=== PATIENT | male | born 1945 | race Caucasian/White ===

== ENCOUNTER 2016-10-14 02:00 | Emergency (ER) | payer MEDICARE, MEDICAID ==
[2016-10-14 02:10] VITALS: BP 142/62
[2016-10-14] MEDS ORDERED: DIPH/PERTUSS(ACELL)/TETANUS VAC/PF 0.5 ML SYR (>=10YO) IM ONE (03:07)
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
== END 2016-10-14 05:07 | disposition home or self-care (01) ==
LOC: ER 02:00
DX: S41.111A Laceration without foreign body of right upper arm, initial encounter (principal); M79.631 Pain in right forearm; W22.01XA Walked into wall, initial encounter; Z87.891 Personal history of nicotine dependence
CPT/HCPCS: 90471; 90715; 99284

== ENCOUNTER 2016-10-25 17:55 | Emergency (ER) | payer MEDICARE, MEDICAID ==
[2016-10-25] MEDS ORDERED: METHYLPREDNISOLONE INJ 125 MG/2 ML SDV IV ONE (18:36)
[2016-10-25] MEDS ORDERED: IPRATROPIUM/ALBUTEROL 0.5-2.5 MG/3 ML AMPUL NEB ONE (18:36)
[2016-10-25] MEDS ORDERED: IBUPROFEN 600 MG TABLET PO ONE (18:36)
--- NOTE | 2016-10-25 18:36 | ER Document Report ---
ED Respiratory Problem - General Chief Complaint: Neck and Upper Back Pain Stated Complaint: NECK PAIN Notes: The patient is a 71-year-old male, past medical history COPD, hypertension, presents with 1 day of cough and increased wheezing. He received a DuoNeb with some relief of his symptoms. He is also having right sided neck pain that started after he woke up earlier today. He denies chest pain, nausea, vomiting , fevers, leg swelling, abdominal pain, numbness, tingling or back pain. TRAVEL OUTSIDE OF THE [place] IN LAST 30 DAYS: No - Related Data Allergies/Adverse Reactions: No Known Allergies Allergy (Verified 10/14/16 02:07) Past Medical History - General Information source: Patient - Social History Smoking Status: Current Every Day Smoker Family History: Reviewed & Not Pertinent - Past Medical History Cardiac Medical History: Reports: Hx Congestive Heart Failure, Hx Hypercholesterolemia, Hx Hypertension Pulmonary Medical History: Reports: Hx Asthma, Hx COPD Endocrine Medical History: Reports: Hx Diabetes Mellitus Type 2 Renal/ Medical History: Denies: Hx Peritoneal Dialysis GI Medical History: Reports: Hx Gastroesophageal Reflux Disease Musculoskeltal Medical History: Reports Hx Arthritis Skin Medical History: Reports Hx MRSA Psychiatric Medical History: Denies: Hx Depression Past Surgical History: Reports: Hx Abdominal Surgery - Hernia Repair, Hx Genitourinary Surgery - SCRUTAL FLUID DRAINED, Hx Herniorrhaphy - Immunizations Hx Diphtheria, Pertussis, Tetanus Vaccination: Yes Hx Pneumococcal Vaccination: 09/02/11 Review of Systems - Review of Systems Notes: REVIEW OF SYSTEMS: CONSTITUTIONAL: -fevers, -chills EENT: -eye pain, -difficulty swallowing, -nasal congestion CARDIOVASCULAR: -chest pain, -syncope. RESPIRATORY: +cough, +SOB GASTROINTESTINAL: -abdominal pain, -nausea, -vomiting, -diarrhea GENITOURINARY: -dysuria, -hematuria MUSCULOSKELETAL: + left neck pain, -back pain SKIN: -rash or skin lesions. HEMATOLOGIC: -easy bruising or bleeding. LYMPHATIC: -swollen, enlarged glands. NEUROLOGICAL: -altered mental status or loss of consciousness, -headache, - neurologic symptoms PSYCHIATRIC: -anxiety, -depression. ALL OTHER SYSTEMS REVIEWED AND NEGATIVE. Physical Exam - Vital signs Vitals: Resp BP Pulse Ox 24 H 130/65 H 97 10/25/16 18:15 10/25/16 18:15 02/23/17 18:15 - Notes Notes: PHYSICAL EXAMINATION: GENERAL: Well-appearing, well-nourished and in no acute distress. HEAD: Atraumatic, normocephalic. EYES: Pupils equal round and reactive to light, extraocular movements intact, sclera anicteric, conjunctiva are normal. ENT: nares patent, oropharynx clear without exudates. Moist mucous membranes. NECK: Spasming over left paraspinal cervical muscles, Normal range of motion, supple without lymphadenopathy LUNGS: B/L wheezing, no respiratory distress HEART: Regular rate and rhythm without murmurs ABDOMEN: Soft, nontender, normoactive bowel sounds. No guarding, no rebound. No masses appreciated. EXTREMITIES: Normal range of motion, no pitting or edema. No cyanosis. NEUROLOGICAL: Cranial nerves grossly intact. Normal speech, normal gait. Normal sensory, motor, and reflex exams. PSYCH: Normal mood, normal affect. SKIN: Chronic right arm wound without drainage, erythema or tenderness. Course - Re-evaluation Re-evalutation: Patient in no respiratory distress. After DuoNeb and steroids, patient's wheezing has completely resolved. Chest x-ray negative for any acute findings. Labs are unremarkable. Cervical neck spasm resolved after Motrin and heating pad. EKG does not show any acute changes and symptoms very atypical for ACS. Symptoms also atypical for PE or aortic dissection at this time. Pt also with chronic right arm wound. Offered I&D, but he defers at this time because the wound is non-tender and without drainage. Will have him f/u at his PMD. Given strict return precautions and he understands. 10/25/16 19:58 Repeat vital signs are HR 92, RR 19, BP 132/87. - Vital Signs Vital signs: Temp Pulse Resp BP Pulse Ox 97.9 F 108 H 26 H 130/65 H 97 10/25/16 18:16 10/25/16 18:16 10/25/16 18:16 10/25/16 18:16 10/25/16 18:16 - Laboratory Result Diagrams: 10/25/16 19:04 10/25/16 19:04 Laboratory results interpreted by me: 10/25/16 10/25/16 19:04 19:04 RDW 15.2 H Lymphocytes % 8.3 L Monocytes % 15.9 H Absolute Monocytes 1.6 H Carbon Dioxide 20 L - Diagnostic Test Radiology reviewed: Image reviewed, Reports reviewed Radiology results interpreted by me: CXR: low lung volumes, minimal atelectasis - EKG Interpretation by Me EKG shows normal: Sinus rhythm, [place], Intervals, QRS Complexes, ST-T Waves Rate: Tachycardia Discharge - Discharge Clinical Impression: COPD exacerbation Neck strain Qualifiers: Encounter type: initial encounter Qualified Code(s): S16.1XXA - Strain of muscle, fascia and tendon at neck level, initial encounter Condition: Good Disposition: HOME, SELF-CARE Additional Instructions: Take the full course of steroids and use her albuterol as needed. Motrin and heating pads for your neck strain. Follow-up with your primary care physician. Return immediately to the emergency room if you have any worsening pain or shortness of breath. Chronic Obstructive Lung Disease You have chronic obstructive lung disease (COPD). The symptoms come from emphysema (damage to small airways, with trapping of air in large sacks in the lung) and chronic bronchitis (repeated infection and damage to larger airways). The cause is almost always cigarette smoking, although dust exposure, asthma, and infections contribute. You should avoid fumes, dust, and smoke (especially tobacco smoke). Your condition will flare from time to time. There is no cure, but the symptoms can be treated. Bronchodilators (asthma medicine) are often helpful. Antibiotics help when infection is present. When shortness of breath is severe, we may prescribe cortisone medication. If medicine doesn't help enough, we can arrange for you to have an oxygen tank at home. Notify your doctor at once if sputum becomes thick, foul, or bloody, if you develop a fever or chest pain, or if your shortness of breath worsens. SPRAIN: Your injury is a sprain. A sprain results from stretching or tearing of the ligaments, usually from a twisting injury. The ligaments will require time and protection in order to heal properly. Many sprains are quite disabling and should be taken seriously. The usual initial treatment of sprains is cold packs, elevation, and rest of the injured area. Your physician has assessed the seriousness of your ligament injury, and has outlined a treatment plan. Understand that this treatment may change, depending on how you progress. If a re-examination was recommended, it is important that you follow up as instructed. Call the doctor any time if there is severe pain, numbness, or loss of function in the injured area. ICE & ELEVATION: Apply ice packs frequently against the painful area. Many different schedules are recommended, such as "20 minutes on, 20 minutes off" or "one hour ice, two hours rest." If you need to work, you may need to go longer between ice treatments. You should plan to have the area ice packed AT LEAST one- fourth of the time. The ice should be applied over the wrap, tape, or splint, or over a layer of cloth -- not directly against the skin. Some ice bags have a built-in cloth and can be put directly on the skin. Your injured part should be elevated as much as possible over the next 48 hours. Try to keep the injury above the level of the heart. Avoid use of the injured area. Elevation and rest will decrease the swelling. USE OF [id number]-[id number] IBUPROFEN: Ibuprofen (Advil, Nuprin, Medipren, Motrin IB) is a medication for fever and pain control. In addition, it has anti- inflammatory effects which may be beneficial, especially in the treatment of injuries. It's best to take ibuprofen with food. Persons with ulcer disease or allergy to aspirin should notify their physician of this before taking ibuprofen. Ibuprofen can be given every four to six hours, for a total of four doses daily. Age Pain or fever dose Antiinflammatory dose 6-8 yr 200 mg (1 tab) 200 mg (1 tab) 9-11 yr 200 mg (1 tab) 200-400 mg (1-2 tab) 11-14 yr 200-400 mg (1-2 tab) 400 mg (2 tab) 15-adult 400 mg (2 tab) 600 mg (3 tab) ORAL NARCOTIC MEDICATION: You have been given a prescription for pain control. This medication is a narcotic. It's best taken with food, as nausea can result if taken on an empty stomach. Don't operate machinery or drive within six hours of taking this medication. Do not combine this medicine with alcohol, or with any medication which can cause sedation (such as cold tablets or sleeping pills) unless you get permission from the physician. Narcotics tend to cause constipation. If possible, drink plenty of fluids and eat a diet high in fiber and fruits. Please be aware that prescription narcotics also have the potential for abuse. People become addicted to these medications because of the general sense of wellbeing that they induce. This feeling along with a significant reduction in tension, anxiety, and aggression provides a stimulating seductive quality to these drugs. Once your pain is under control, we encourage you to discard your unused narcotics. FOLLOW-UP CARE: If you have been referred to a physician for follow-up care, call the physician s office for an appointment as you were instructed or within the next two days. If you experience worsening or a significant change in your symptoms, notify the physician immediately or return to the Emergency Department at any time for re-evaluation. Prescriptions: Prednisone [Deltasone 20 mg Tablet] 3 tab PO DAILY 5 Days
[2016-10-25 19:23] LABS: ABSOLUTE EOSINOPHILS # (AUTO) 0.3 10^3/uL (0.0-0.6); ABSOLUTE LYMPHOCYTES (AUTO) 0.8 10^3/uL (0.5-4.7); ABSOLUTE MONOCYTES (AUTO) 1.6 10^3/uL (0.1-1.4); ABSOLUTE NEUT (AUTO) 7.3 10^3/uL (1.7-8.2); BASOPHILS % (AUTO) 0.3 % (0-2); EOSINOPHILS % (AUTO) 2.6 % (0-6); HEMATOCRIT 43.1 % (37.9-51.0); HEMOGLOBIN 15.1 g/dL (13.5-17.0); HGB HCT DIFFERENCE 2.2; LYMPHOCYTES % (AUTO) 8.3 % (13-45); MEAN CORPUSCULAR HEMOGLOBIN 32.3 pg (27.0-33.4); MEAN CORPUSCULAR HGB CONC 34.9 g/dL (32.0-36.0); MEAN CORPUSCULAR VOLUME 93 fl (80-97); MONOCYTES % (AUTO) 15.9 % (3-13); RED BLOOD COUNT 4.66 10^6/uL (4.35-5.55); RED CELL DISTRIBUTION WIDTH 15.2 % (11.5-14.0); SEGMENTED NEUTROPHILS % (AUTO) 72.9 % (42-78)
[2016-10-25 19:44] LABS: ANION GAP 16 (5-19); BLOOD UREA NITROGEN 10 mg/dL (7-20); CALCIUM 9.5 mg/dL (8.4-10.2); CARBON DIOXIDE 20 mmol/L (22-30); CHLORIDE 101 mmol/L (98-107); CREATINE KINASE 151 U/L (55-170); GLUCOSE 109 mg/dL (75-110); POTASSIUM 3.9 mmol/L (3.6-5.0)
[2016-10-25 20:32] VITALS: BP 133/67
--- NOTE | 2016-10-26 16:57 | EKG REPORT ---
SEVERITY:- BORDERLINE ECG - SINUS TACHYCARDIA ATRIAL PREMATURE COMPLEX BORDERLINE LEFT AXIS DEVIATION : Confirmed by: Tiffanie Palm MD 26-Oct-2016 16:56:29
== END 2016-10-25 20:15 | disposition home or self-care (01) ==
LOC: ER 17:55
DX: S16.1XXA Strain of muscle, fascia and tendon at neck level, initial encounter (principal); X58.XXXA Exposure to other specified factors, initial encounter; J44.1 Chronic obstructive pulmonary disease with (acute) exacerbation; J45.909 Unspecified asthma, uncomplicated; R00.0 Tachycardia, unspecified; R05 Cough; J98.11 Atelectasis; M54.2 Cervicalgia; E11.9 Type 2 diabetes mellitus without complications; I10 Essential (primary) hypertension; F17.200 Nicotine dependence, unspecified, uncomplicated; Z86.14 Personal history of Methicillin resistant Staphylococcus aureus infection
CPT/HCPCS: 93005; 94640; 99284; 96374; 36415; 82550; 85025; 80048; 84484; 71010; 93010; A9270 ×2; J2930; J7620

== ENCOUNTER 2016-11-09 09:12 | Emergency (ER) | payer MEDICARE, MEDICAID ==
--- NOTE | 2016-11-09 11:21 | ER Document Report ---
ED Skin Rash/Insect Bite/Abscs - General Chief Complaint: Abscess Stated Complaint: POSSIBLE ABSCESS Time seen by provider: 11:18 Mode of Arrival: Ambulatory Information source: Patient Notes: 71-year-old male presents to ED for abscess to his left mid back. He states he has had this before since Saturday TRAVEL OUTSIDE OF THE [place] IN LAST 30 DAYS: No - HPI Patient complains to provider of: Tender/swollen area Onset: Other - Saturday it is now Saturday Onset/Duration: Gradual Quality of pain: Pressure, Sharp Severity: Moderate Pain Level: 4 Skin Character: Abscess Skin Temperature: Warm Quality of rash: Painful Identify cause: No Exacerbated by: Movement Relieved by: Denies Similar symptoms previously: Yes Recently seen / treated by doctor: No - Related Data Allergies/Adverse Reactions: No Known Allergies Allergy (Verified 11/09/16 09:27) Past Medical History - General Information source: Patient - Social History Smoking Status: Former Smoker Cigarette use (# per day): No Chew tobacco use (# tins/day): No Smoking Education Provided: No Frequency of alcohol use: Social Drug Abuse: None Occupation: disabled Lives with: Family - His niece Family History: Arthritis, CVA, DM, Hypertension, Thyroid Disfunction Patient has suicidal ideation: No Patient has homicidal ideation: No - Past Medical History Cardiac Medical History: Reports: Hx Congestive Heart Failure, Hx Hypercholesterolemia, Hx Hypertension Pulmonary Medical History: Reports: Hx Asthma, Hx COPD EENT Medical History: Reports: None Neurological Medical History: Reports: None Endocrine Medical History: Reports: Hx Diabetes Mellitus Type 2 Renal/ Medical History: Reports: None Malignancy Medical History: Reports None GI Medical History: Reports: Hx Gastroesophageal Reflux Disease, Hx Colonoscopy , Other - Has had an umbilical hernia he has not getting repaired it is not incarcerated Musculoskeltal Medical History: Reports Hx Arthritis Skin Medical History: Reports Hx MRSA Psychiatric Medical History: Reports: None Traumatic Medical History: Reports: None Infectious Medical History: Reports: Hx MRSA Past Surgical History: Reports: Hx Genitourinary Surgery - SCRUTAL FLUID DRAINED , Hx Inguinal Hernia - Immunizations Hx Diphtheria, Pertussis, Tetanus Vaccination: Yes Hx Pneumococcal Vaccination: 09/02/11 Review of Systems - Review of Systems Constitutional: No symptoms reported EENT: No symptoms reported Cardiovascular: No symptoms reported Respiratory: No symptoms reported Gastrointestinal: No symptoms reported Genitourinary: No symptoms reported Male Genitourinary: No symptoms reported Musculoskeletal: No symptoms reported Skin: Other - Abscess to back Hematologic/Lymphatic: No symptoms reported Neurological/Psychological: No symptoms reported Physical Exam - Vital signs Vitals: Temp Pulse Resp BP Pulse Ox 97.7 F 101 H 22 H 156/66 H 94 11/09/16 09:16 11/09/16 09:16 11/09/16 09:16 11/09/16 09:16 11/09/16 09:16 Interpretation: Normal - General General appearance: Appears well, Alert - HEENT Head: Normocephalic, Atraumatic Eyes: Normal Pupils: PERRL - Respiratory Respiratory status: No respiratory distress Chest status: Nontender Breath sounds: Normal Chest palpation: Normal - Cardiovascular Rhythm: Regular Heart sounds: Normal auscultation Murmur: No - Abdominal Inspection: Normal Distension: No distension Bowel sounds: Normal Tenderness: Nontender Organomegaly: No organomegaly - Back Back: Normal, Nontender - Extremities General upper extremity: Normal inspection, Nontender, Normal color, Normal ROM , Normal temperature General lower extremity: Normal inspection, Nontender, Normal color, Normal ROM , Normal temperature, Normal weight bearing. No: Bonnie's sign - Neurological Neuro grossly intact: Yes Cognition: Normal Orientation: AAOx4 Mckenna Coma Scale Eye Opening: Spontaneous [place] Coma Scale Verbal: Oriented Mck[place] Coma Scale Motor: Obeys Commands Mckenna Coma Scale Total: 15 Speech: Normal Motor strength normal: LUE, RUE, LLE, RLE Sensory: Normal - Psychological Associated symptoms: Normal affect, Normal mood - Skin Skin Temperature: Warm Skin Moisture: Dry Skin Color: Normal Skin irregularity: Abscess Location of irregularity: Back - Left mid back Irregularity with: Swelling, Tenderness, Warmth Course - Re-evaluation Re-evalutation: 11/09/16 12:49 I&D completed to the abscess on his left mid back. Patient tolerated well large amount of purulent drainage return. Abscess was packed with 1/4 inch iodoform gauze and a sterile dressing applied. Patient instructed to have the wound repacked in 48 hours. He states that his niece has done this in the past and can do it for him. Patient instructed to follow-up with the doctor Saturday or Saturday to have the abscess reexamined. He was told he could go to his primary doctor for this examination. Patient was started on Keflex and Septra and Hunt for pain. - Vital Signs Vital signs: Temp Pulse Resp BP Pulse Ox 97.8 F 109 H 18 153/80 H 98 11/09/16 13:17 11/09/16 13:17 11/09/16 13:17 11/09/16 13:17 11/09/16 13:17 Procedures - Incision and Drainage Left Mid- Back Time completed: 12:48 Type: Simple Anesthetic type: 1% Lidocaine mL's of anesthetic: 5 Blade size: 11 I&D procedure: Betadine prep applied, Other - Surgical scrub Incision Method: Incision made by scalpel Amount/type of drainage: large amount of purulent drainage Notes: 11/09/16 12:49 Abscess was packed with quarter-inch iodoform sterile dressing applied. Discharge - Discharge Clinical Impression: Cutaneous abscess of back [any part, except buttock] Condition: Stable Disposition: HOME, SELF-CARE Additional Instructions: ABSCESS: You have an abscess (boil). This a pus-forming infection, usually due to staph. Some boils may be left to drain on their own, but most require lancing. From the time the tender lump first appears, it may be three or four days before the abscess is ready to thomas. Local heat and rest help at this stage of treatment. An antibiotic may prevent spread of the infection. Once the abscess is opened, packing may be placed into it. This is done so pus is not sealed inside by premature closure of the cavity. The packing will be removed at your follow-up visit or you may be advised to remove it yourself at home. Sometimes this packing must be replaced a few times during healing. The wound will heal with surprisingly little scar. Depending on the size and location of an abscess, healing can take one to four weeks. You may shower and wash the area around the incision site two or three times a day. Antibiotics may be prescribed, but are usually not necessary after an abscess has been drained. If you develop fever, chills, worsening pain, or increasing swelling in the area, call the doctor or return immediately. POST INCISION AND DRAINAGE: You have had an incision made to allow drainage of an abscess. The incision must remain open so that pus and debris can drain from the wound. If the abscess cavity is large, packing is placed. This keeps the tissues from collapsing and trapping pus inside, while the body shrinks the cavity. The packing may need to be replaced every day or two. The physician will instruct you on the packing. Keep a bulky dressing over the area. Replace it if it becomes saturated with blood or pus. Do not disturb the packing (if present). You may shower and cleanse the area with gentle soap and warm water two or three times a day. Local warmth may be soothing, and may promote faster healing. Return if you develop high fever or chills, or if you note spreading redness, increasing swelling, or increasing tenderness. ORAL NARCOTIC MEDICATION: You have been given a prescription for pain control. This medication is a narcotic. It's best taken with food, as nausea can result if taken on an empty stomach. Don't operate machinery or drive within six hours of taking this medication. Do not combine this medicine with alcohol, or with any medication which can cause sedation (such as cold tablets or sleeping pills) unless you get permission from the physician. Narcotics tend to cause constipation. If possible, drink plenty of fluids and eat a diet high in fiber and fruits. CEPHALEXIN: The antibiotic you've been prescribed is a member of the cephalosporin class. This type of antibiotic covers a wide variety of infections, including those of the skin, lungs, and urinary tract. It's useful for staph infections. This antibiotic is slightly similar to the penicillin family. In rare cases , a person who is allergic to penicillin will also be allergic to this medication. If you have had a severe allergic reaction to penicillin, and have not taken this antibiotic since that time, notify your doctor. Antibiotics which cover many germs ("broad spectrum" antibiotics) are more likely to cause diarrhea or "yeast" infections. Women prone to vaginal yeast problems may suffer an attack after taking this antibiotic. In infants, oral thrush (white spots "stuck" on the cheek) or yeast diaper rash may result. See your doctor if these problems occur. Call at once if you develop itching, hives , shortness of breath, or lightheadedness. TRIMETHOPRIM-SULFA: You have been given a prescription for trimethoprim-sulfa (TMS, Septra, Bactrim). This is a combination antibiotic of the sulfa class, often used for urinary tract infections, middle ear infections, bronchitis, shigella intestinal infection, and Pneumocystis pneumonia. TMS is usually well-tolerated. Occasional side effects include nausea and decreased appetite. Septra is not recommended for infants less than two months of age. Do not take this medication if you have experienced severe side effects or allergy to sulfa medicine. You should stop this medicine at once and contact your physician if you develop any rash, joint pain, shortness of breath, bruising, or jaundice ( yellow color in the skin), or if you develop any other new or unusual symptoms. Your abscess has been packed with iodoform please leave this packing in for 24- 48 hours and then replaced the packing. It is important that you have this followed up by your primary doctor on Saturday or Saturday to ensure that the wound is healing. FOLLOW-UP CARE: Most simple abscesses will not require a follow up visit. If you had packing placed in the abscess, remove it as instructed by the physician. If you have been referred to a physician for follow-up care, call the physicians office for an appointment as you were instructed or within the next two days. If you experience worsening or a significant change in your symptoms, return to the Emergency Department at any time for re-evaluation. Prescriptions: Hydrocodone/Acetaminophen [Hunt 5-325 mg Tablet] 1 tab PO Q6HP PRN #10 tablet PRN Reason: Cephalexin Monohydrate [Keflex 500 mg Capsule] 500 mg PO QID #20 capsule Sulfamethoxazole/Trimethoprim [Septra-Ds 800-160 mg Tablet] 1 tab PO BID #14 tablet Forms: Elevated Blood Pressure Referrals: ZAIRE MILTON MD [Primary Care Provider] - Follow up as needed
[2016-11-09 13:19] VITALS: BP 153/80
== END 2016-11-09 13:17 | disposition home or self-care (01) ==
LOC: ER 09:12
PROC: 0H96XZZ Drainage of Back Skin, External Approach (ICD-10-PCS; principal; 2016-11-09)
DX: L02.212 Cutaneous abscess of back [any part, except buttock and flank] (principal); E11.9 Type 2 diabetes mellitus without complications; J45.909 Unspecified asthma, uncomplicated; J44.9 Chronic obstructive pulmonary disease, unspecified; E78.00 Pure hypercholesterolemia, unspecified; I10 Essential (primary) hypertension; I50.9 Heart failure, unspecified; Z87.891 Personal history of nicotine dependence; Z86.14 Personal history of Methicillin resistant Staphylococcus aureus infection
CPT/HCPCS: 87070; 87075; 87077; 87186; 87205; 99283

== ENCOUNTER 2016-11-30 03:38 | Emergency (ER) | payer MEDICARE, MEDICAID ==
[2016-11-30] MEDS ORDERED: IPRATROPIUM/ALBUTEROL 0.5-2.5 MG/3 ML AMPUL NEB ONE ×2 (04:10→06:25)
--- NOTE | 2016-11-30 04:43 | ER Document Report ---
ED General - General Chief Complaint: Shortness Of Breath Stated Complaint: SHORTNESS OF BREATH Time seen by provider: 04:30 Mode of Arrival: Medic Information source: Patient TRAVEL OUTSIDE OF THE [place] IN LAST 30 DAYS: No - HPI Notes: Patient presents with report of cough productive of yellowish phlegm that the patient had for the last week, with report of worsening dyspnea and wheezing over the course of last 2 days. The patient reports associated chest tightness with the wheezing and difficulty breathing, stating this is not unusual for his typical COPD flareups. Patient denies any fever or chills or radiation of the chest tightness. He reports no nausea or vomiting. No pharyngitis or earache. Patient quit smoking 14 years ago, but has a long-standing history of COPD. The patient previously was on home oxygen until his physician took him off of home oxygen 3 years ago when he stated that he did not need it anymore. EMS picked up the patient giving nebulizer treatments with improvement. The patient was also given IV Solu-Medrol 125 mg. - Related Data Allergies/Adverse Reactions: No Known Allergies Allergy (Verified 11/09/16 09:27) Past Medical History - Social History Smoking Status: Former Smoker Frequency of alcohol use: None Drug Abuse: None Lives with: Family Family History: Arthritis, CVA, DM, Hypertension, Thyroid Disfunction - Past Medical History Cardiac Medical History: Reports: Hx Congestive Heart Failure, Hx Hypercholesterolemia, Hx Hypertension Pulmonary Medical History: Reports: Hx Asthma, Hx COPD Endocrine Medical History: Reports: Hx Diabetes Mellitus Type 2 Renal/ Medical History: Denies: Hx Peritoneal Dialysis GI Medical History: Reports: Hx Gastroesophageal Reflux Disease, Hx Colonoscopy Musculoskeltal Medical History: Reports Hx Arthritis Skin Medical History: Reports Hx MRSA Psychiatric Medical History: Denies: Hx Depression Infectious Medical History: Reports: Hx MRSA Past Surgical History: Reports: Hx Abdominal Surgery - Hernia Repair, Hx Genitourinary Surgery - SCRUTAL FLUID DRAINED, Hx Herniorrhaphy, Hx Inguinal Hernia - Immunizations Hx Diphtheria, Pertussis, Tetanus Vaccination: Yes Hx Pneumococcal Vaccination: 09/02/11 Review of Systems - Review of Systems Notes: REVIEW OF SYSTEMS: CONSTITUTIONAL : Denies fever, chills, or sweats. EENT: Denies eye, ear, throat, or mouth pain or symptoms. Denies nasal or sinus congestion or discharge. Denies throat, tongue, or mouth swelling or difficulty swallowing. CARDIOVASCULAR: Denies palpitations or racing or irregular heart beat. Denies ankle edema. RESPIRATORY: Positive for cough and congestion and wheezing and difficulty breathing. GASTROINTESTINAL: Denies abdominal pain or distention. Denies nausea, vomiting , or diarrhea. Denies blood in vomitus, stools, or per rectum. Denies black, tarry stools. Denies constipation. GENITOURINARY: Denies difficulty urinating, painful urination, burning, frequency, blood in urine, or discharge. MUSCULOSKELETAL: Denies back or neck pain or stiffness. Denies joint pain or swelling. SKIN: Denies rash, lesions or sores. HEMATOLOGIC : Denies easy bruising or bleeding. LYMPHATIC: Denies swollen, enlarged glands. NEUROLOGICAL: Denies confusion or altered mental status. Denies passing out or loss of consciousness. Denies dizziness or lightheadedness. Denies headache. Denies weakness or paralysis or loss of use of either side. Denies problems with gait or speech. Denies sensory loss, numbness, or tingling. Denies seizures. PSYCHIATRIC: Denies anxiety or stress. Denies depression, suicidal ideation, or homicidal ideation. ALL OTHER SYSTEMS REVIEWED AND NEGATIVE. Dictation was performed using [employer] voice recognition software Physical Exam - Vital signs Vitals: Resp BP Pulse Ox 13 143/64 H 98 11/30/16 03:47 11/30/16 03:47 11/30/16 03:47 - Notes Notes: PHYSICAL EXAMINATION: GENERAL: Well-appearing, well-nourished. Mild respiratory distress. HEAD: Atraumatic, normocephalic. EYES: Pupils equal round and reactive to light, extraocular movements intact, sclera anicteric, conjunctiva are normal. ENT: Nares patent, oropharynx clear without exudates. Moist mucous membranes. NECK: Normal range of motion, supple without lymphadenopathy LUNGS: Breath sounds show anterior wheezing with slightly prolonged expiratory phase and accessory muscle use. HEART: Regular rate and rhythm without murmurs ABDOMEN: Soft, nontender, nondistended abdomen. No guarding, no rebound. No masses appreciated. Musculoskeletal: Normal range of motion, no pitting or edema. No cyanosis. NEUROLOGICAL: Cranial nerves grossly intact. Normal speech, normal gait. Normal sensory, motor exams PSYCH: Normal mood, normal affect. SKIN: Warm, Dry, normal turgor, no rashes or lesions noted. Course - Re-evaluation Re-evalutation: 11/30/16 06:50 Initial troponin negative. Repeat exam showed continued wheezing. Repeat DuoNeb ordered. Repeat troponin is ordered for 8 AM. Patient kept on supplemental oxygen 2 L. No obvious evidence for acute MA or electrolyte imbalance or pneumonia. Question a underlying bronchitis. Care turned over to Dr. Mcbride at 0645. - Vital Signs Vital signs: Temp Pulse Resp BP Pulse Ox 97.8 F 88 26 H 141/73 H 95 11/30/16 06:00 11/30/16 06:00 11/30/16 06:01 11/30/16 06:01 11/30/16 06:01 - Laboratory Result Diagrams: 11/30/16 04:35 11/30/16 04:35 Laboratory results interpreted by me: 11/30/16 11/30/16 04:35 04:35 RDW 14.7 H Creatine Kinase 171 H - EKG Interpretation by Pr EKG shows normal: Sinus rhythm Additional EKG results interpreted by me: 11/30/16 04:52 EKG as interpreted by ia showed normal sinus rhythm at a rate of 87. There is no gross evidence for acute MA or ischemia identified. There is no change from previous EKG reviewed from 10/25/16. Discharge - Discharge Clinical Impression: Acute exacerbation of chronic obstructive pulmonary disease (COPD) Acute bronchitis Qualifiers: Bronchitis organism: unspecified organism Qualified Code(s): J20.9 - Acute bronchitis, unspecified
[2016-11-30 05:03] LABS: ALANINE AMINOTRANSFERASE 41 U/L (21-72); ALBUMIN 4.2 g/dL (3.5-5.0); ALKALINE PHOSPHATASE 61 U/L (38-126); ANION GAP 13 (5-19); ASPARTATE AMINO TRANSFERASE 36 U/L (17-59); BILIRUBIN,DIRECT 0.2 mg/dL (0.0-0.4); BILIRUBIN,TOTAL 0.6 mg/dL (0.2-1.3); BLOOD UREA NITROGEN 9 mg/dL (7-20); CALCIUM 9.8 mg/dL (8.4-10.2); CARBON DIOXIDE 24 mmol/L (22-30); CHLORIDE 105 mmol/L (98-107); CREATINE KINASE 171 U/L (55-170); CREATININE RESULT 0.71 mg/dL (0.52-1.25); GLUCOSE 90 mg/dL (75-110); POTASSIUM 4.3 mmol/L (3.6-5.0); SODIUM 142.3 mmol/L (137-145); TOTAL PROTEIN 7.1 g/dL (6.3-8.2)
[2016-11-30 05:05] LABS: ABSOLUTE BASOPHILS # (AUTO) 0.1 10^3/uL (0.0-0.2); ABSOLUTE EOSINOPHILS # (AUTO) 0.1 10^3/uL (0.0-0.6); ABSOLUTE LYMPHOCYTES (AUTO) 1.4 10^3/uL (0.5-4.7); ABSOLUTE MONOCYTES (AUTO) 0.8 10^3/uL (0.1-1.4); ABSOLUTE NEUT (AUTO) 6.5 10^3/uL (1.7-8.2); BASOPHILS % (AUTO) 0.8 % (0-2); EOSINOPHILS % (AUTO) 1.7 % (0-6); HEMATOCRIT 41.2 % (37.9-51.0); HEMOGLOBIN 13.9 g/dL (13.5-17.0); HGB HCT DIFFERENCE 0.5; LYMPHOCYTES % (AUTO) 15.3 % (13-45); MEAN CORPUSCULAR HEMOGLOBIN 30.9 pg (27.0-33.4); MEAN CORPUSCULAR HGB CONC 33.7 g/dL (32.0-36.0); MEAN CORPUSCULAR VOLUME 92 fl (80-97); MONOCYTES % (AUTO) 9.5 % (3-13); RED CELL DISTRIBUTION WIDTH 14.7 % (11.5-14.0); SEGMENTED NEUTROPHILS % (AUTO) 72.7 % (42-78); WHITE BLOOD COUNT 8.9 10^3/uL (4.0-10.5)
[2016-11-30 05:14] LABS: CREATINE KINASE MB 3.45 ng/mL (<4.55)
[2016-11-30 05:18] LABS: TROPONIN I 0.037 ng/mL
[2016-11-30] MEDS ORDERED: ALBUTEROL SULFATE 0.083% NEB 2.5 MG/3 ML AMPUL NEB ONE (10:53)
--- NOTE | 2016-11-30 10:56 | EKG REPORT ---
SEVERITY:- BORDERLINE ECG - SINUS RHYTHM BORDERLINE LEFT AXIS DEVIATION : Confirmed by: Deborah Tracy 30-Nov-2016 10:55:30
[2016-11-30] MEDS ORDERED: PREDNISONE 20 MG TABLET PO ONE (11:38)
[2016-11-30 11:53] VITALS: BP 157/69
== END 2016-11-30 11:53 | disposition home or self-care (01) ==
LOC: ER 03:38
DX: J44.0 Chronic obstructive pulmonary disease with (acute) lower respiratory infection (principal); J20.9 Acute bronchitis, unspecified; J44.1 Chronic obstructive pulmonary disease with (acute) exacerbation; R05 Cough; R07.89 Other chest pain; I10 Essential (primary) hypertension; E11.9 Type 2 diabetes mellitus without complications; Z87.891 Personal history of nicotine dependence; Z86.14 Personal history of Methicillin resistant Staphylococcus aureus infection
CPT/HCPCS: 93005; 94640 ×2; 99285; 36415; 82553; 82550; 83735; 85025; 80053; 84484; 83880; 71010; 93010; A9270 ×3; J7512; J7620

== ENCOUNTER 2017-07-25 19:05 | Inpatient (IN) | payer MEDICARE, MEDICAID ==
[2017-07-25] MEDS ORDERED: ALBUTEROL SULFATE 0.083% NEB 2.5 MG/3 ML AMPUL NEB ONE ×3 (19:11→22:25)
--- NOTE | 2017-07-25 19:43 | ER Document Report ---
ED General - General Mode of Arrival: Medic Information source: Patient TRAVEL OUTSIDE OF THE [place] IN LAST 30 DAYS: No - HPI Onset: This afternoon <JESSIKA POSADAS - Last Filed: 07/25/17 22:27> <CHRISTOPH EARLY - Last Filed: 07/26/17 01:31> - General Chief Complaint: Breathing Difficulty Stated Complaint: SHORTNESS OF BREATH Time Seen by Provider: 07/25/17 19:33 Notes: Patient is a 71 year old male with a history of COPD and asthma presents to the emergency department, via EMS, complaining of shortness of breath onset around 14:00 today. Patient states that he had a "flare up " of his COPD and asthma which caused epigastric and LUQ tightness along with his shortness of breath. Patient states that he takes his nebulizer every 4 hours although it was not helping his symptoms today. Patient states he has had a small cough today. EMS gave 125 mg of Solu Medrol prior to arrival. (JESSIKA POSADAS) - Related Data Allergies/Adverse Reactions: No Known Allergies Allergy (Verified 11/09/16 09:27) Home Medications: Current Home Medications Albuterol Sulfate [Proair Hfa] 8.5 gm IH PRN PRN 07/25/17 [History] Amlodipine Besylate [Norvasc 10 mg Tablet] 10 mg PO DAILY 07/25/17 [History] Aspirin [Aspirin 81 mg Chewable Tablet] 81 mg PO DAILY 07/25/17 [History] Ipratropium/Albuterol Sulfate [Iprat-Albut 0.5-3(2.5) Mg/3 Ml] 3 ml IH Q4H 07/25 [History] Metformin HCl [Metformin HCl ER] 500 mg PO BID 07/25/17 [History] Omeprazole Magnesium [Prilosec Otc] 20 mg PO DAILY 07/25/17 [History] Past Medical History - General Information source: Patient - Social History Smoking Status: Former Smoker Cigarette use (# per day): No Chew tobacco use (# tins/day): No Frequency of alcohol use: Occasional Drug Abuse: None Family History: Arthritis, CVA, DM, Hypertension, Thyroid Disfunction Patient has suicidal ideation: No Patient has homicidal ideation: No - Past Medical History Cardiac Medical History: Reports: Hx Congestive Heart Failure, Hx Hypercholesterolemia, Hx Hypertension Pulmonary Medical History: Reports: Hx Asthma, Hx COPD Endocrine Medical History: Reports: Hx Diabetes Mellitus Type 2 GI Medical History: Reports: Hx Gastroesophageal Reflux Disease, Hx Colonoscopy Musculoskeltal Medical History: Reports Hx Arthritis Skin Medical History: Reports Hx MRSA Infectious Medical History: Reports: Hx MRSA Past Surgical History: Reports: Hx Abdominal Surgery - Hernia Repair, Hx Genitourinary Surgery - SCRUTAL FLUID DRAINED, Hx Herniorrhaphy, Hx Inguinal Hernia - Immunizations Hx Diphtheria, Pertussis, Tetanus Vaccination: Yes Hx Pneumococcal Vaccination: 09/02/11 <JESSIKA POSADAS - Last Filed: 07/25/17 22:27> Review of Systems - Review of Systems Constitutional: No symptoms reported EENT: No symptoms reported Cardiovascular: No symptoms reported Respiratory: See HPI, Cough, Short of breath Gastrointestinal: See HPI, Abdominal pain Genitourinary: No symptoms reported Male Genitourinary: No symptoms reported Musculoskeletal: No symptoms reported Skin: No symptoms reported Hematologic/Lymphatic: No symptoms reported Neurological/Psychological: No symptoms reported -: Yes All other systems reviewed and negative <JESSIKA POSADAS - Last Filed: 07/25/17 22:27> Physical Exam <JESSIKA POSADAS - Last Filed: 07/25/17 22:27> <CHRISTOPH EARLY - Last Filed: 07/26/17 01:31> - Vital signs Vitals: Resp Pulse Ox 20 96 07/25/17 19:11 07/25/17 19:11 - Notes Notes: GENERAL: Alert, interacts well. HEAD: Normocephalic, atraumatic. EYES: Pupils equal, round, and reactive to light. Extraocular movements intact. ENT: Oral mucosa moist, tongue midline. NECK: Full range of motion. Supple. Trachea midline. LUNGS: Expiratory wheezes. No rales or rhonchi. Shortness of breath. Uses accessory muscles. Tachypneic. HEART: Regular rate and rhythm. No murmurs, gallops, or rubs. ABDOMEN: Soft, non-tender. Non-distended. Bowel sounds present in all 4 quadrants. Large, reducible umbilical hernia. EXTREMITIES: Moves all 4 extremities spontaneously. No edema, radial and dorsalis pedis pulses 2/4 bilaterally. No cyanosis. NEUROLOGICAL: Alert and oriented x3. Normal speech. PSYCH: Normal affect, normal mood. SKIN: Warm, dry, normal turgor. No rashes or lesions noted. (JESSIKA POSADAS) Course - Laboratory Result Diagrams: 07/25/17 19:31 07/25/17 19:31 <JESSIKA POSADAS - Last Filed: 07/25/17 22:27> - Laboratory Result Diagrams: 07/25/17 19:31 07/25/17 19:31 <CHRISTOPH EARLY - Last Filed: 07/26/17 01:31> - Re-evaluation Re-evalutation: 07/25/17 22:27 Patient continues to have shortness of breath and wheezing. Patient uses accessory muscles to aid in breathing. Pulse ox is 92. (JESSIKA POSADAS) 07/25/17 22:31 CBC unremarkable, chemistries unremarkable, chest x-ray shows no acute process, cardiac enzymes negative, EKG is nonischemic. Despite IV steroids and 3 breathing treatments patient is not feeling any better, continues to be tachypneic and wheeze. At present no indication for BiPAP. Discussed patient with Dr. Villalta who is covering for his primary care physician Dr. Diallo, he accepts the patient to his service in admission status on the telemetry care unit. 07/25/17 22:32 Primary care physician will continue to monitor his long-standing hypertension ( CHRISTOPH EARLY) - Vital Signs Vital signs: Temp Pulse Resp BP Pulse Ox 97.7 F 109 H 20 150/70 H 96 07/26/17 00:03 07/26/17 00:03 07/26/17 00:03 07/26/17 00:03 07/26/17 00:03 - Laboratory Laboratory results interpreted by me: 07/25/17 07/25/17 19:31 19:31 Hgb 17.5 H MCH 33.6 H RDW 14.3 H Monocytes % 15.0 H Glucose 134 H Direct Bilirubin 0.5 H - EKG Interpretation by Me Additional EKG results interpreted by me: 07/25/17 22:31 EKG shows sinus rhythm at a rate of 96, left anterior hemiblock, no ST segment elevations or depressions, no T-wave inversions per my interpretation. (CHRISTOPH EARLY) Discharge <JESSIKA POSADAS - Last Filed: 07/25/17 22:27> - Discharge Admitting Provider: [facility] Unit Admitted: Telemetry <CHRISTOPH EARLY - Last Filed: 07/26/17 01:31> - Discharge Clinical Impression: COPD exacerbation Hypertension Qualifiers: Hypertension type: essential hypertension Qualified Code(s): I10 - Essential ( primary) hypertension Condition: Fair Disposition: ADMITTED INPATIENT Scribe Attestation: 07/26/17 01:31 I personally performed the services described in the documentation, reviewed and edited the documentation which was dictated to the scribe in my presence, and it accurately records my words and actions. (CHRISTOPH EARLY) Scribe Documentation - Scribe Written by Cristóbal:: Cristóbal Lincoln, 07/25/2017 19:54 acting as scribe for :: Rakesh <JESSIKA POSADAS - Last Filed: 07/25/17 22:27>
[2017-07-25] MEDS ORDERED: IPRATROPIUM/ALBUTEROL 0.5-2.5 MG/3 ML AMPUL NEB ONE (19:58)
[2017-07-25 20:48] LABS: ALANINE AMINOTRANSFERASE 41 U/L (21-72); ALBUMIN 4.3 g/dL (3.5-5.0); ALKALINE PHOSPHATASE 64 U/L (38-126); ANION GAP 15 (5-19); ASPARTATE AMINO TRANSFERASE 27 U/L (17-59); BILIRUBIN,DIRECT 0.5 mg/dL (0.0-0.4); BILIRUBIN,TOTAL 0.7 mg/dL (0.2-1.3); BLOOD UREA NITROGEN 13 mg/dL (7-20); CALCIUM 9.6 mg/dL (8.4-10.2); CARBON DIOXIDE 22 mmol/L (22-30); CHLORIDE 101 mmol/L (98-107); CREATINE KINASE 116 U/L (55-170); CREATININE RESULT 1.07 mg/dL (0.52-1.25); GLUCOSE 134 mg/dL (75-110); SODIUM 137.8 mmol/L (137-145); TOTAL PROTEIN 7.3 g/dL (6.3-8.2)
[2017-07-25 20:52] LABS: ABSOLUTE BASOPHILS # (AUTO) 0.1 10^3/uL (0.0-0.2); ABSOLUTE EOSINOPHILS # (AUTO) 0.3 10^3/uL (0.0-0.6); ABSOLUTE LYMPHOCYTES (AUTO) 1.4 10^3/uL (0.5-4.7); ABSOLUTE MONOCYTES (AUTO) 1.1 10^3/uL (0.1-1.4); ABSOLUTE NEUT (AUTO) 4.4 10^3/uL (1.7-8.2); BASOPHILS % (AUTO) 1.2 % (0-2); EOSINOPHILS % (AUTO) 4.5 % (0-6); HEMATOCRIT 49.2 % (37.9-51.0); HEMOGLOBIN 17.5 g/dL (13.5-17.0); HGB HCT DIFFERENCE 3.3; LYMPHOCYTES % (AUTO) 18.7 % (13-45); MEAN CORPUSCULAR HEMOGLOBIN 33.6 pg (27.0-33.4); MEAN CORPUSCULAR HGB CONC 35.6 g/dL (32.0-36.0); MEAN CORPUSCULAR VOLUME 94 fl (80-97); RED BLOOD COUNT 5.22 10^6/uL (4.35-5.55); RED CELL DISTRIBUTION WIDTH 14.3 % (11.5-14.0); SEGMENTED NEUTROPHILS % (AUTO) 60.6 % (42-78); WHITE BLOOD COUNT 7.3 10^3/uL (4.0-10.5)
[2017-07-25 21:00] LABS: CREATINE KINASE MB 2.83 ng/mL (<4.55); TROPONIN I < 0.012 ng/mL
--- NOTE | 2017-07-25 22:29 | RADIOLOGY REPORT (SQ) ---
EXAM DESCRIPTION: CHEST SINGLE VIEW COMPLETED DATE/TIME: 07/25/2017 10:10 pm REASON FOR STUDY: cough, SOB COMPARISON: CT chest 02/08/2016 Chest films 04/08/2016, 11/30/2016 EXAM PARAMETERS: NUMBER OF VIEWS: One view. TECHNIQUE: Single frontal radiographic view of the chest acquired. RADIATION DOSE: NA LIMITATIONS: None. FINDINGS: LUNGS AND PLEURA: No acute infiltrates. No pleural effusion or pneumothorax MEDIASTINUM AND HILAR STRUCTURES: No masses. Contour normal. HEART AND VASCULAR STRUCTURES: Heart normal in size. Normal vasculature. BONES: No acute findings. HARDWARE: None in the chest. OTHER: No other significant finding. IMPRESSION: NO ACUTE RADIOGRAPHIC FINDING IN THE CHEST. TECHNICAL DOCUMENTATION: JOB ID: [id number] [employer]- All Rights Reserved
[2017-07-25] MEDS ORDERED: ACETAMINOPHEN 325 MG TABLET PO PRN (22:31)
[2017-07-25] MEDS ORDERED: GLUCAGON,HUMAN RECOMB 1 MG INJ IM PRN (22:36)
[2017-07-25] MEDS ORDERED: DEXTROSE 40% GEL 15 GM TUBE PO PRN ×2 (22:36)
[2017-07-25] MEDS ORDERED: DEXTROSE 50%-WATER 25 GM/50 ML DISP.SYRIN IV PRN ×2 (22:36)
[2017-07-25] MEDS ORDERED: LEVOFLOXACIN 500 MG/D5W RTU 500 MG/100 ML RTUPB IV ONE (23:00)
[2017-07-25] MEDS: IPRATROPIUM/ALBUTEROL 0.5-2.5 MG/3 ML AMPUL NEB SCH (23:10)
[2017-07-25] MEDS: NORMAL SALINE 1000 ML 1,000 ML IV PRN (23:16)
[2017-07-26] MEDS ORDERED: INFLUENZA ADLT QUAD (36MOS+) 2017-18 VAC 0.5 ML SYR IM PRN (03:12)
[2017-07-26] MEDS: IPRATROPIUM/ALBUTEROL 0.5-2.5 MG/3 ML AMPUL NEB SCH ×6 (04:29→23:51)
[2017-07-26 05:21] LABS: HEMATOCRIT 46.1 % (37.9-51.0); HEMOGLOBIN 16.7 g/dL (13.5-17.0); MEAN CORPUSCULAR HEMOGLOBIN 34.1 pg (27.0-33.4); MEAN CORPUSCULAR HGB CONC 36.2 g/dL (32.0-36.0); MEAN CORPUSCULAR VOLUME 94 fl (80-97); RED BLOOD COUNT 4.89 10^6/uL (4.35-5.55); RED CELL DISTRIBUTION WIDTH 14.2 % (11.5-14.0); WHITE BLOOD COUNT 4.8 10^3/uL (4.0-10.5)
[2017-07-26 05:34] LABS: BLOOD UREA NITROGEN 15 mg/dL (7-20); CALCIUM 9.4 mg/dL (8.4-10.2); CARBON DIOXIDE 17 mmol/L (22-30); CREATININE RESULT 1.02 mg/dL (0.52-1.25); GLUCOSE 160 mg/dL (75-110)
[2017-07-26 05:46] LABS: ANION GAP 19 (5-19); CHLORIDE 102 mmol/L (98-107); POTASSIUM 4.4 mmol/L (3.6-5.0); SODIUM 138.2 mmol/L (137-145)
[2017-07-26] MEDS: LANSOPRAZOLE 15 MG TAB.RAP.DR PO SCH ×2 (06:56→16:17)
[2017-07-26] MEDS: METHYLPREDNISOLONE INJ 125 MG/2 ML SDV IV SCH ×3 (06:59→22:29)
[2017-07-26] MEDS: METFORMIN HCL 500 MG TABLET PO SCH (07:39)
[2017-07-26] MEDS: ASPIRIN 81 MG TABLET, CHEWABLE PO SCH (09:10)
[2017-07-26] MEDS: GUAIFENESIN 600 MG TABLET.SA PO SCH ×2 (09:10→22:29)
[2017-07-26] MEDS: AMLODIPINE BESYLATE 10 MG TABLET PO SCH (09:11)
[2017-07-26] MEDS: ENOXAPARIN SODIUM INJ 40 MG/0.4 ML DISP.SYRIN SUBCUT SCH (09:11)
[2017-07-26] MEDS: LEVOFLOXACIN 500 MG/D5W RTU 500 MG/100 ML RTUPB IV SCH (09:11)
[2017-07-26] MEDS ORDERED: (PENDING PHARMACY ID) (Metformin Hcl [Metformin Hcl Er] 500 MG) PO SCH (10:00)
[2017-07-26] MEDS: NORMAL SALINE 1000 ML 1,000 ML IV PRN (10:32)
--- NOTE | 2017-07-26 10:47 | PDOC H&P ---
History of Present Illness Admission Date/PCP: 07/25/17 22:56 Patient complains of: Shortness of the breath and coughing History of Present Illness: ANDRE BATES is a 71 year old male This is a 71-year-old male with a significant history of the COPD and a former smoker him to the emergency department with a complaint of shortness of the breath and increasing the cough and a chest tightness since last couple of days and patients try to get some respiratory treatment but unable to clear up and in the emergency department patient received the Solu-Medrol was in the respiratory treatments and still feels short of breath and decided to admit in the hospital for further evaluation and treatment Patient is currently feeling better but still feeling a bit tightness in the chest and the patient's feel pain when took a deep breath Since the used to smoke in the past but currently quit for so many years back Is denied any heart problems Past Medical History Cardiac Medical History: Reports: Congestive Heart Failure, Hyperlipidema, Hypertension Pulmonary Medical History: Reports: Asthma, Chronic Obstructive Pulmonary Disease (COPD) Endocrine Medical History: Reports: Diabetes Mellitus Type 2 GI Medical History: Reports: Gastroesophageal Reflux Disease Musculoskeltal Medical History: Reports: Arthritis Psychiatric Medical History: Denies: Depression Infectious Medical History: Reports: Methicillin-Resistant Staph Aureus Past Surgical History Past Surgical History: Reports: Herniorrhaphy Social History Smoking Status: Former Smoker Cigarettes Packs Per Day: 1 Number of Years Smokin Last Time Smoked: 09/02/2002 Frequency of Alcohol Use: Occasional Hx Recreational Drug Use: No Drugs: None Hx Prescription Drug Abuse: No Family History Family History: Arthritis, CVA, DM, Hypertension, Thyroid Disfunction Parental Family History Reviewed: Yes Children Family History Reviewed: Yes Sibling(s) Family History Reviewed.: Yes Medication/Allergy Home Medications: Amlodipine Besylate [Norvasc 10 mg Tablet] 10 mg PO DAILY 07/25/17 Aspirin [Aspirin 81 mg Chewable Tablet] 81 mg PO DAILY 07/25/17 Ipratropium/Albuterol Sulfate [Iprat-Albut 0.5-3(2.5) Mg/3 Ml] 3 ml IH Q4 Metformin HCl [Metformin HCl ER] 500 mg PO Q12 07/25/17 Omeprazole Magnesium [Prilosec Otc] 20 mg PO DAILY 07/25/17 Albuterol Sulfate [Proair HFA] 2 puff IH Q6HP PRN 07/26/17 Budesonide/Formoterol Fumarate [Symbicort Hfa 160-4.5 Mcg Inhaler 6 gm] 2 puff IH Q12 07/26/17 Roflumilast [Daliresp 500 mcg Tablet] 500 mcg PO DAILY 07/26/17 Allergies/Adverse Reactions: No Known Allergies Allergy (Verified 11/09/16 09:27) Review of Systems Constitutional: ABSENT: chills, fever(s), headache(s), weight gain, weight loss Eyes: ABSENT: visual disturbances Ears: ABSENT: hearing changes Cardiovascular: PRESENT: chest pain, dyspnea on exertion. ABSENT: edema, orthropnea, palpitations Respiratory: PRESENT: cough, dyspnea. ABSENT: hemoptysis Gastrointestinal: ABSENT: abdominal pain, constipation, diarrhea, hematemesis, hematochezia, nausea, vomiting Genitourinary: ABSENT: dysuria, hematuria Musculoskeletal: ABSENT: joint swelling Integumentary: ABSENT: rash, wounds Neurological: ABSENT: abnormal gait, abnormal speech, confusion, dizziness, focal weakness, syncope Psychiatric: ABSENT: anxiety, depression, homidical ideation, suicidal ideation Endocrine: ABSENT: cold intolerance, heat intolerance, menstrual abnormalities, polydipsia, polyuria Hematologic/Lymphatic: ABSENT: easy bleeding, easy bruising, lymphadenopathy Physical Exam Vital Signs: Temp Pulse Resp BP Pulse Ox 97.7 F 77 18 156/60 H 95 07/26/17 08:52 07/26/17 08:58 07/26/17 08:58 07/26/17 08:52 07/26/17 08:58 Intake & Output 07/25/17 07/26/17 07/27/17 06:59 06:59 06:59 Intake Total 665 Output Total 300 Balance 365 Weight 107.9 kg General appearance: PRESENT: no acute distress, well-developed, well-nourished Head exam: PRESENT: atraumatic, normocephalic Eye exam: PRESENT: conjunctiva pink, EOMI, PERRLA. ABSENT: scleral icterus Ear exam: PRESENT: normal external ear exam Mouth exam: PRESENT: moist, tongue midline Neck exam: PRESENT: full ROM. ABSENT: carotid bruit, JVD, lymphadenopathy, thyromegaly Respiratory exam: PRESENT: clear to auscultation booker Cardiovascular exam: PRESENT: RRR. ABSENT: diastolic murmur, rubs, systolic murmur Pulses: PRESENT: normal dorsalis pedis pul, +2 pedal pulses bilateral Vascular exam: PRESENT: normal capillary refill GI/Abdominal exam: PRESENT: normal bowel sounds, soft. ABSENT: distended, guarding, mass, organolmegaly, rebound, tenderness Rectal exam: PRESENT: deferred Extremities exam: ABSENT: full ROM, left AKA, right AKA, left BKA, right BKA, calf tenderness, joint swelling, pedal edema, tenderness, other Musculoskeletal exam: PRESENT: ambulatory Neurological exam: PRESENT: alert, awake, oriented to person, oriented to place , oriented to time, oriented to situation, CN II-XII grossly intact. ABSENT: motor sensory deficit Psychiatric exam: PRESENT: appropriate affect, normal mood. ABSENT: homicidal ideation, suicidal ideation Skin exam: PRESENT: dry, intact, warm. ABSENT: cyanosis, rash Results Laboratory Results: 07/26/17 04:18 07/26/17 04:18 07/26/17 07/26/17 04:18 04:18 WBC 4.8 RBC 4.89 Hgb 16.7 Hct 46.1 MCV 94 MCH 34.1 H MCHC 36.2 H RDW 14.2 H Plt Count 131 L Sodium 138.2 Potassium 4.4 Chloride 102 Carbon Dioxide 17 L Anion Gap 19 BUN 15 Creatinine 1.02 Est GFR ( Amer) > 60 Est GFR (Non-Af Amer) > 60 Glucose 160 H Calcium 9.4 Impressions: Chest X-Ray 07/25/17 19:58 IMPRESSION: NO ACUTE RADIOGRAPHIC FINDING IN THE CHEST. Assessment & Plan - Diagnosis (1) Chest tightness Is this a current diagnosis for this admission?: Yes Plan: Likely a from the COPD acute exacerbations will get the serial cardiac enzymes to rule out any acute coronary syndromes and also get the CT angiogram to rule out underlying any PE (2) COPD exacerbation Is this a current diagnosis for this admission?: Yes Plan: Continues IV Solu-Medrol and respiratory treatments (3) Hypertension Qualifiers: Hypertension type: essential hypertension Qualified Code(s): I10 - Essential (primary) hypertension Is this a current diagnosis for this admission?: Yes Plan: All stable continues to current medications (4) GERD (gastroesophageal reflux disease) Qualifiers: Esophagitis presence: without esophagitis Qualified Code(s): K21.9 - Gastro -esophageal reflux disease without esophagitis Is this a current diagnosis for this admission?: Yes Plan: Since the PPI (5) Shortness of breath Is this a current diagnosis for this admission?: Yes Plan: We will get the CT angiogram and also continues to respiratory treatment and nebulizer - Time Time Spent: 30 to 50 Minutes Medications reviewed and adjusted accordingly: Yes Anticipated discharge: Home - Inpatient Certification Medical Necessity: Significant Comorbidiites Make Outpatient Treatment Too Risky , Need for IV Antibiotics Post Hospital Care: D/C Physiologist Documentation - Plan Summary Plan Summary: Admit the patient in the telemetry bed continues to respiratory treatment and IV steroid
--- NOTE | 2017-07-26 12:14 | RADIOLOGY REPORT (SQ) ---
EXAM DESCRIPTION: CTA CHEST COMPLETED DATE/TIME: 07/26/2017 11:58 am REASON FOR STUDY: sob COMPARISON: Chest x-ray dated 07/25/2017 TECHNIQUE: CT scan of the chest performed using helical scanning technique with dynamic intravenous contrast injection. Images reviewed with lung, soft tissue and bone windows. Reconstructed coronal and sagittal MPR images reviewed. Additional 3 dimensional post-processing performed to develop Maximal Intensity Projection images (AL P). All images stored on PACS. All CT scanners at this facility use dose modulation, iterative reconstruction, and/or weight based d osing when appropriate to reduce radiation dose to as low as reasonably achievable (ALARA). [facility]: Dose Right [facility]: CareDose [facility]: Dose Right [facility]: Teradose 4D [facility]: [employer] CONTRAST TYPE AND DOSE: contrast/concentration: Isovue 370.00 mg/ml; Total Contrast Delivered: 82.0 ml; Total Saline Delivered: 67.4 ml Contrast bolus optimized for the pulmonary arteries. Not diagnostic for the aorta. RENAL FUNCTION: Creatinine 1.02 RADIATION DOSE: CT Rad equipment meets quality standard of care and radiation dose reduction techniq ues were employed. CTDIvol: 35.4 - 39.7 mGy. DLP: 1592 mGy-cm. . LIMITATIONS: None. FINDINGS: LUNGS AND PLEURA: No masses, infiltrates, pneumothorax. No pleural effusions, calcificati ons. AORTA AND GREAT VESSELS: No aneurysm. Tortuous thoracic aorta is identified with vascular calcificat ions. Contrast bolus not optimized for the aorta. HEART: No pericardial effusion. No significant coronary artery calcifications. PULMONARY ARTERIES: No emboli visualized in the main pulmonary arteries or the segmental branches. HILAR AND MEDIASTINAL STRUCTURES: No identified masses or abnormal nodes. HARDWARE: None in the chest. UPPER ABDOMEN: Multiple small gallstones are identified. THYROID AND OTHER SOFT TISSUES: No masses. No adenopathy. BONES: No acute or significant finding. 3D MIPS: Confirm above findings. OTHER: No other significant finding. IMPRESSION: No evidence for pulmonary embolic disease. No acute consolidations or pleural effusions are identified. Other findings as noted above COMMENT: Quality ID # [id number]: Final reports with documentation of one or more dose reduction techniques (e.g., Automated exposure control, adjustment of the mA and/or kV according to patient size, use of iterative reconstruction technique) TECHNICAL DOCUMENTATION: JOB ID: [id number] [employer]- All Rights Reserved
[2017-07-26 12:43] LABS: CREATINE KINASE MB 2.36 ng/mL (<4.55)
[2017-07-26 12:48] LABS: TROPONIN I < 0.012 ng/mL
--- NOTE | 2017-07-26 14:41 | EKG REPORT ---
SEVERITY:- BORDERLINE ECG - SINUS RHYTHM LEFT AXIS DEVIATION CONSIDER ANTERIOR INFARCT : Confirmed by: Tiffanie Palm MD 26-Jul-2017 14:41:27
[2017-07-26] MEDS: INSULIN LISPRO 100 UNIT/ML 3 ML VIAL SUBCUT PRN (16:40)
[2017-07-26 19:01] LABS: TROPONIN I < 0.012 ng/mL
[2017-07-27 00:57] LABS: CREATINE KINASE MB 2.79 ng/mL (<4.55)
[2017-07-27 01:04] LABS: TROPONIN I < 0.012 ng/mL
[2017-07-27] MEDS: NORMAL SALINE 1000 ML 1,000 ML IV PRN (02:50)
[2017-07-27] MEDS: IPRATROPIUM/ALBUTEROL 0.5-2.5 MG/3 ML AMPUL NEB SCH ×6 (04:14→23:20)
[2017-07-27] MEDS: METHYLPREDNISOLONE INJ 125 MG/2 ML SDV IV SCH ×3 (05:27→22:14)
[2017-07-27] MEDS: LANSOPRAZOLE 15 MG TAB.RAP.DR PO SCH ×2 (05:27→16:33)
[2017-07-27 06:59] LABS: HEMATOCRIT 45.2 % (37.9-51.0); HEMOGLOBIN 15.8 g/dL (13.5-17.0); HGB HCT DIFFERENCE 2.2; MEAN CORPUSCULAR VOLUME 94 fl (80-97); RED BLOOD COUNT 4.79 10^6/uL (4.35-5.55); RED CELL DISTRIBUTION WIDTH 14.4 % (11.5-14.0)
[2017-07-27 07:23] LABS: ANION GAP 14 (5-19); BLOOD UREA NITROGEN 19 mg/dL (7-20); CALCIUM 9.1 mg/dL (8.4-10.2); CARBON DIOXIDE 20 mmol/L (22-30); CHLORIDE 107 mmol/L (98-107); CREATININE RESULT 0.96 mg/dL (0.52-1.25); GLUCOSE 146 mg/dL (75-110); POTASSIUM 4.2 mmol/L (3.6-5.0); SODIUM 141.1 mmol/L (137-145)
[2017-07-27] MEDS: LEVOFLOXACIN 500 MG/D5W RTU 500 MG/100 ML RTUPB IV SCH (09:34)
[2017-07-27] MEDS: ENOXAPARIN SODIUM INJ 40 MG/0.4 ML DISP.SYRIN SUBCUT SCH (09:35)
[2017-07-27] MEDS: GUAIFENESIN 600 MG TABLET.SA PO SCH ×2 (09:35→22:14)
[2017-07-27] MEDS: AMLODIPINE BESYLATE 10 MG TABLET PO SCH (09:35)
[2017-07-27] MEDS: ASPIRIN 81 MG TABLET, CHEWABLE PO SCH (09:35)
--- NOTE | 2017-07-27 10:26 | PDOC PROGRESS REPORT ---
Subjective Progress Note for:: 07/27/17 Subjective:: Patient is currently doing well Since denied any chest pain denied any shortness of the breath CTA was negative Physical Exam Vital Signs: Temp Pulse Resp BP Pulse Ox 98.1 F 88 24 H 129/56 H 95 07/27/17 08:42 07/27/17 08:42 07/27/17 08:42 07/27/17 08:42 07/27/17 08:42 Intake & Output 07/26/17 07/27/17 07/28/17 06:59 06:59 06:59 Intake Total 665 2840 Output Total 300 700 Balance 365 2140 Weight 107.9 kg 107.9 kg General appearance: PRESENT: no acute distress, well-developed, well-nourished Head exam: PRESENT: atraumatic, normocephalic Eye exam: PRESENT: conjunctiva pink, EOMI, PERRLA. ABSENT: scleral icterus Ear exam: PRESENT: normal external ear exam Mouth exam: PRESENT: moist, tongue midline Neck exam: PRESENT: full ROM. ABSENT: carotid bruit, JVD, lymphadenopathy, thyromegaly Respiratory exam: PRESENT: clear to auscultation booker Cardiovascular exam: PRESENT: RRR. ABSENT: diastolic murmur, rubs, systolic murmur Pulses: PRESENT: normal dorsalis pedis pul, +2 pedal pulses bilateral Vascular exam: PRESENT: normal capillary refill GI/Abdominal exam: PRESENT: normal bowel sounds, soft. ABSENT: distended, guarding, mass, organolmegaly, rebound, tenderness Rectal exam: PRESENT: deferred Extremities exam: ABSENT: full ROM, left AKA, right AKA, left BKA, right BKA, calf tenderness, joint swelling, pedal edema, tenderness, other Musculoskeletal exam: PRESENT: ambulatory Neurological exam: PRESENT: alert, awake, oriented to person, oriented to place , oriented to time, oriented to situation, CN II-XII grossly intact. ABSENT: motor sensory deficit Psychiatric exam: PRESENT: appropriate affect, normal mood. ABSENT: homicidal ideation, suicidal ideation Skin exam: PRESENT: dry, intact, warm. ABSENT: cyanosis, rash Results Laboratory Results: 07/27/17 04:21 07/27/17 04:21 07/27/17 07/27/17 04:21 04:21 WBC 14.0 H D RBC 4.79 Hgb 15.8 Hct 45.2 MCV 94 MCH 33.0 MCHC 35.0 RDW 14.4 H Plt Count 183 Sodium 141.1 Potassium 4.2 Chloride 107 Carbon Dioxide 20 L Anion Gap 14 BUN 19 Creatinine 0.96 Est GFR ( Amer) > 60 Est GFR (Non-Af Amer) > 60 Glucose 146 H Calcium 9.1 07/26/17 07/26/17 07/26/17 11:05 11:05 18:18 Creatine Kinase 88 119 CK-MB (CK-2) 2.36 Troponin I < 0.012 07/26/17 07/27/17 07/27/17 18:18 00:15 00:15 Creatine Kinase 105 CK-MB (CK-2) 2.50 2.79 Troponin I < 0.012 < 0.012 Impressions: Chest X-Ray 07/25/17 19:58 IMPRESSION: NO ACUTE RADIOGRAPHIC FINDING IN THE CHEST. Chest/Abdomen CTA 07/26/17 00:00 IMPRESSION: No evidence for pulmonary embolic disease. No acute consolidations or pleural effusions are identified. Other findings as noted above Assessment & Plan - Diagnosis (1) Chest tightness Is this a current diagnosis for this admission?: Yes Plan: This is all workup is negative most likely from COPD acute exacerbations (2) COPD exacerbation Is this a current diagnosis for this admission?: Yes Plan: Reduce to IV steroid and continues to nebulizer treatment (3) Hypertension Qualifiers: Hypertension type: essential hypertension Qualified Code(s): I10 - Essential (primary) hypertension Is this a current diagnosis for this admission?: Yes Plan: All stable continues to current medications (4) GERD (gastroesophageal reflux disease) Qualifiers: Esophagitis presence: without esophagitis Qualified Code(s): K21.9 - Gastro -esophageal reflux disease without esophagitis Is this a current diagnosis for this admission?: Yes Plan: Since the PPI (5) Shortness of breath Is this a current diagnosis for this admission?: Yes - Time Time Spent with patient: 15-24 minutes Medications reviewed and adjusted accordingly: Yes Anticipated discharge: Home Within: Other - Inpatient Certification Medical Necessity: Need Close Monitoring Due to Risk of Patient Decompensation Post Hospital Care: D/C Electromechanical Equipment Assembler Documentation - Plan Summary Plan Summary: Continues to current medications
[2017-07-28] MEDS: IPRATROPIUM/ALBUTEROL 0.5-2.5 MG/3 ML AMPUL NEB SCH ×5 (03:39→19:45)
[2017-07-28] MEDS: NORMAL SALINE 1000 ML 1,000 ML IV PRN (06:42)
[2017-07-28] MEDS: LANSOPRAZOLE 15 MG TAB.RAP.DR PO SCH ×2 (06:42→17:00)
[2017-07-28] MEDS: METHYLPREDNISOLONE INJ 125 MG/2 ML SDV IV SCH ×3 (06:42→22:11)
[2017-07-28 07:13] LABS: HEMATOCRIT 42.9 % (37.9-51.0); HEMOGLOBIN 14.8 g/dL (13.5-17.0); HGB HCT DIFFERENCE 1.5; MEAN CORPUSCULAR HEMOGLOBIN 32.5 pg (27.0-33.4); MEAN CORPUSCULAR HGB CONC 34.4 g/dL (32.0-36.0); MEAN CORPUSCULAR VOLUME 94 fl (80-97); RED BLOOD COUNT 4.55 10^6/uL (4.35-5.55); RED CELL DISTRIBUTION WIDTH 14.1 % (11.5-14.0); WHITE BLOOD COUNT 12.4 10^3/uL (4.0-10.5)
[2017-07-28 07:39] LABS: ANION GAP 13 (5-19); BLOOD UREA NITROGEN 22 mg/dL (7-20); CARBON DIOXIDE 20 mmol/L (22-30); CHLORIDE 108 mmol/L (98-107); CREATININE RESULT 0.93 mg/dL (0.52-1.25); GLUCOSE 153 mg/dL (75-110); POTASSIUM 3.7 mmol/L (3.6-5.0); SODIUM 141.2 mmol/L (137-145)
[2017-07-28] MEDS: LEVOFLOXACIN 500 MG/D5W RTU 500 MG/100 ML RTUPB IV SCH (09:38)
[2017-07-28] MEDS: AMLODIPINE BESYLATE 10 MG TABLET PO SCH (09:40)
[2017-07-28] MEDS: ASPIRIN 81 MG TABLET, CHEWABLE PO SCH (09:40)
[2017-07-28] MEDS: GUAIFENESIN 600 MG TABLET.SA PO SCH ×2 (09:40→22:11)
[2017-07-28] MEDS: ENOXAPARIN SODIUM INJ 40 MG/0.4 ML DISP.SYRIN SUBCUT SCH (09:40)
--- NOTE | 2017-07-28 10:33 | PDOC PROGRESS REPORT ---
Subjective Progress Note for:: 07/28/17 Subjective:: Recent is currently doing fair Patient still having some short of breath but denied any chest pain and feeling better compared to yesterday Physical Exam Vital Signs: Temp Pulse Resp BP Pulse Ox 98.1 F 72 16 113/48 L 94 07/28/17 04:20 07/28/17 07:30 07/28/17 07:30 07/28/17 04:20 07/28/17 07:30 Intake & Output 07/27/17 07/28/17 07/29/17 06:59 06:59 06:59 Intake Total 2840 2922 Output Total 700 Balance 2140 2922 Weight 107.9 kg 106.9 kg General appearance: PRESENT: no acute distress, well-developed, well-nourished Head exam: PRESENT: atraumatic, normocephalic Eye exam: PRESENT: conjunctiva pink, EOMI, PERRLA. ABSENT: scleral icterus Ear exam: PRESENT: normal external ear exam Mouth exam: PRESENT: moist, tongue midline Neck exam: PRESENT: full ROM. ABSENT: carotid bruit, JVD, lymphadenopathy, thyromegaly Respiratory exam: PRESENT: wheezes Cardiovascular exam: PRESENT: RRR. ABSENT: diastolic murmur, rubs, systolic murmur Pulses: PRESENT: normal dorsalis pedis pul, +2 pedal pulses bilateral Vascular exam: PRESENT: normal capillary refill GI/Abdominal exam: PRESENT: normal bowel sounds, soft. ABSENT: distended, guarding, mass, organolmegaly, rebound, tenderness Rectal exam: PRESENT: deferred Extremities exam: ABSENT: pedal edema Musculoskeletal exam: PRESENT: ambulatory Neurological exam: PRESENT: alert, awake, oriented to person, oriented to place , oriented to time, oriented to situation, CN II-XII grossly intact. ABSENT: motor sensory deficit Psychiatric exam: PRESENT: appropriate affect, normal mood. ABSENT: homicidal ideation, suicidal ideation Skin exam: PRESENT: dry, intact, warm. ABSENT: cyanosis, rash Results Laboratory Results: 07/28/17 06:15 07/28/17 06:15 07/28/17 07/28/17 06:15 06:15 WBC 12.4 H RBC 4.55 Hgb 14.8 Hct 42.9 MCV 94 MCH 32.5 MCHC 34.4 RDW 14.1 H Plt Count 214 Sodium 141.2 Potassium 3.7 Chloride 108 H Carbon Dioxide 20 L Anion Gap 13 BUN 22 H Creatinine 0.93 Est GFR ( Amer) > 60 Est GFR (Non-Af Amer) > 60 Glucose 153 H Calcium 9.0 07/26/17 01:35 Clean Catch Midstream Urine Culture - Final NO GROWTH 2 DAYS 07/26/17 07/26/17 07/26/17 11:05 11:05 18:18 Creatine Kinase 88 119 CK-MB (CK-2) 2.36 Troponin I < 0.012 07/26/17 07/27/17 07/27/17 18:18 00:15 00:15 Creatine Kinase 105 CK-MB (CK-2) 2.50 2.79 Troponin I < 0.012 < 0.012 Impressions: Chest X-Ray 07/25/17 19:58 IMPRESSION: NO ACUTE RADIOGRAPHIC FINDING IN THE CHEST. Chest/Abdomen CTA 07/26/17 00:00 IMPRESSION: No evidence for pulmonary embolic disease. No acute consolidations or pleural effusions are identified. Other findings as noted above Assessment & Plan - Diagnosis (1) Chest tightness Is this a current diagnosis for this admission?: Yes Plan: This is all workup is negative most likely from COPD acute exacerbations (2) COPD exacerbation Is this a current diagnosis for this admission?: Yes Plan: Reduce to IV steroid and continues to nebulizer treatment (3) Hypertension Qualifiers: Hypertension type: essential hypertension Qualified Code(s): I10 - Essential (primary) hypertension Is this a current diagnosis for this admission?: Yes Plan: All stable continues to current medications (4) GERD (gastroesophageal reflux disease) Qualifiers: Esophagitis presence: without esophagitis Qualified Code(s): K21.9 - Gastro -esophageal reflux disease without esophagitis Is this a current diagnosis for this admission?: Yes Plan: Since the PPI (5) Shortness of breath Is this a current diagnosis for this admission?: Yes Plan: We will get the CT angiogram and also continues to respiratory treatment and nebulizer - Time Time Spent with patient: 15-24 minutes Medications reviewed and adjusted accordingly: Yes Anticipated discharge: Home Within: Other - Inpatient Certification Medical Necessity: Need Close Monitoring Due to Risk of Patient Decompensation Post Hospital Care: D/C Crime Scene Evidence Technician Documentation - Plan Summary Plan Summary: This IV steroid and nebulizer treatment
[2017-07-28] MEDS: INSULIN LISPRO 100 UNIT/ML 3 ML VIAL SUBCUT PRN ×2 (11:56→17:11)
[2017-07-28] MEDS: METFORMIN HCL 500 MG TABLET PO SCH (17:00)
[2017-07-29] MEDS: IPRATROPIUM/ALBUTEROL 0.5-2.5 MG/3 ML AMPUL NEB SCH ×6 (00:03→20:54)
[2017-07-29] MEDS: METHYLPREDNISOLONE INJ 125 MG/2 ML SDV IV SCH ×2 (06:05→14:23)
[2017-07-29] MEDS: LANSOPRAZOLE 15 MG TAB.RAP.DR PO SCH ×2 (06:05→16:56)
[2017-07-29] MEDS: ENOXAPARIN SODIUM INJ 40 MG/0.4 ML DISP.SYRIN SUBCUT SCH (09:12)
[2017-07-29] MEDS: METFORMIN HCL 500 MG TABLET PO SCH ×2 (09:12→16:56)
[2017-07-29] MEDS: LEVOFLOXACIN 500 MG/D5W RTU 500 MG/100 ML RTUPB IV SCH (09:12)
[2017-07-29] MEDS: AMLODIPINE BESYLATE 10 MG TABLET PO SCH (09:12)
[2017-07-29] MEDS: GUAIFENESIN 600 MG TABLET.SA PO SCH ×2 (09:12→22:18)
[2017-07-29] MEDS: ASPIRIN 81 MG TABLET, CHEWABLE PO SCH (09:12)
[2017-07-29] MEDS: INSULIN LISPRO 100 UNIT/ML 3 ML VIAL SUBCUT PRN ×2 (11:45→22:38)
[2017-07-29] MEDS ORDERED: ACETAMINOPHEN 325 MG TABLET PO PRN (14:00)
--- NOTE | 2017-07-29 21:46 | PDOC PROGRESS REPORT ---
Subjective Progress Note for:: 07/29/17 Subjective:: Patient was admitted for the management of acute COPD exacerbation, he was seen by the bedside he said he feels better Reason For Visit: COPD ACUTE Physical Exam Vital Signs: Temp Pulse Resp BP Pulse Ox 97.7 F 80 16 138/62 H 97 07/29/17 16:16 07/29/17 20:55 07/29/17 20:55 07/29/17 16:16 07/29/17 18:04 Intake & Output 07/28/17 07/29/17 07/30/17 06:59 06:59 06:59 Intake Total 2922 4238 142 Balance 2922 4108 690 Weight 106.9 kg 109.3 kg General appearance: PRESENT: no acute distress, well-developed, well-nourished Head exam: PRESENT: atraumatic, normocephalic Eye exam: PRESENT: conjunctiva pink, EOMI, PERRLA Ear exam: PRESENT: normal external ear exam Mouth exam: PRESENT: moist, tongue midline Neck exam: PRESENT: full ROM Respiratory exam: PRESENT: clear to auscultation booker Cardiovascular exam: PRESENT: RRR, +S1, +S2 Pulses: PRESENT: normal dorsalis pedis pul, +2 pedal pulses bilateral Vascular exam: PRESENT: normal capillary refill GI/Abdominal exam: PRESENT: normal bowel sounds, soft Rectal exam: PRESENT: deferred Neurological exam: PRESENT: alert, awake, oriented to person, oriented to place , oriented to time, oriented to situation, CN II-XII grossly intact. ABSENT: motor sensory deficit Psychiatric exam: PRESENT: appropriate affect, normal mood. ABSENT: homicidal ideation, suicidal ideation Skin exam: PRESENT: dry, intact, warm. ABSENT: cyanosis, rash Results Laboratory Results: 07/28/17 06:15 07/28/17 06:15 07/27/17 13:20 Sputum Gram Stain - Final 07/27/17 13:20 Sputum Sputum Culture - Final NORMAL JOSE 07/26/17 07/26/17 07/26/17 11:05 11:05 18:18 Creatine Kinase 88 119 CK-MB (CK-2) 2.36 Troponin I < 0.012 07/26/17 07/27/17 07/27/17 18:18 00:15 00:15 Creatine Kinase 105 CK-MB (CK-2) 2.50 2.79 Troponin I < 0.012 < 0.012 Impressions: Chest X-Ray 07/25/17 19:58 IMPRESSION: NO ACUTE RADIOGRAPHIC FINDING IN THE CHEST. Chest/Abdomen CTA 07/26/17 00:00 IMPRESSION: No evidence for pulmonary embolic disease. No acute consolidations or pleural effusions are identified. Other findings as noted above Assessment & Plan - Diagnosis (1) Chest tightness Is this a current diagnosis for this admission?: Yes (2) Hypertension Qualifiers: Hypertension type: essential hypertension Qualified Code(s): I10 - Essential (primary) hypertension Is this a current diagnosis for this admission?: Yes (3) Acute exacerbation of chronic obstructive pulmonary disease (COPD) Plan: Continue treatment reduce Solu-Medrol dose (4) GERD (gastroesophageal reflux disease) Qualifiers: Esophagitis presence: without esophagitis Qualified Code(s): K21.9 - Gastro -esophageal reflux disease without esophagitis Is this a current diagnosis for this admission?: Yes
[2017-07-29] MEDS ORDERED: METHYLPREDNISOLONE INJ 40 MG/1 ML SDV IV ONE (22:15)
[2017-07-29] MEDS ORDERED: METHYLPREDNISOLONE INJ 125 MG/2 ML SDV IV ONE (22:15)
[2017-07-30] MEDS: IPRATROPIUM/ALBUTEROL 0.5-2.5 MG/3 ML AMPUL NEB SCH ×5 (00:39→16:09)
[2017-07-30] MEDS: LANSOPRAZOLE 15 MG TAB.RAP.DR PO SCH ×2 (06:03→16:25)
[2017-07-30] MEDS: METHYLPREDNISOLONE INJ 40 MG/1 ML SDV IV SCH ×2 (06:03→13:28)
[2017-07-30] MEDS: METFORMIN HCL 500 MG TABLET PO SCH ×2 (07:47→16:24)
[2017-07-30] MEDS: LEVOFLOXACIN 500 MG/D5W RTU 500 MG/100 ML RTUPB IV SCH (10:10)
[2017-07-30] MEDS: GUAIFENESIN 600 MG TABLET.SA PO SCH (10:11)
[2017-07-30] MEDS: ENOXAPARIN SODIUM INJ 40 MG/0.4 ML DISP.SYRIN SUBCUT SCH (10:11)
[2017-07-30] MEDS: AMLODIPINE BESYLATE 10 MG TABLET PO SCH (10:11)
[2017-07-30] MEDS: ASPIRIN 81 MG TABLET, CHEWABLE PO SCH (10:11)
[2017-07-30] MEDS: INSULIN LISPRO 100 UNIT/ML 3 ML VIAL SUBCUT PRN (11:47)
--- NOTE | 2017-07-30 16:37 | PDOC DISCHARGE SUMMARY ---
General - Admit/Disc Date/PCP Admission Date/Primary Care Provider: 07/25/17 22:56 Discharge Date: 07/30/17 - Discharge Diagnosis (1) Chest tightness Is this a current diagnosis for this admission?: Yes (2) Hypertension Is this a current diagnosis for this admission?: Yes (3) Acute exacerbation of chronic obstructive pulmonary disease (COPD) Is this a current diagnosis for this admission?: Yes (4) GERD (gastroesophageal reflux disease) Is this a current diagnosis for this admission?: Yes - Additional Information Home Medications: Amlodipine Besylate [Norvasc 10 mg Tablet] 10 mg PO DAILY 07/25/17 Aspirin [Aspirin 81 mg Chewable Tablet] 81 mg PO DAILY 07/25/17 Ipratropium/Albuterol Sulfate [Iprat-Albut 0.5-3(2.5) mg/3 ml] 3 ml IH Q4 Metformin HCl [Metformin HCl ER] 500 mg PO Q12 07/25/17 Omeprazole Magnesium [Prilosec Otc] 20 mg PO DAILY 07/25/17 Albuterol Sulfate [Proair HFA] 2 puff IH Q6HP PRN 07/26/17 Budesonide/Formoterol Fumarate [Symbicort HFA 160-4.5 mcg Inhaler 6 gm] 2 puff IH Q12 07/26/17 Roflumilast [Daliresp 500 mcg Tablet] 500 mcg PO DAILY 07/26/17 Prednisone 5 mg PO DAILY #46 tablet 07/30/17 History of Present Illness History of Present Illness: ANDRE BATES is a 72 year old male, patient was admitted when he presented with acute COPD exacerbation Hospital Course Hospital Course: Patient was admitted for the management of acute COPD exacerbation, CTA chest was done it was negative for any acute pathology, there is no pulmonary embolism that was visualized on the CTA chest. He was treated with intravenous Solu-Medrol, bronchodilators 40 COPD exacerbation. Was admitted on , which was last week , he was seen by the bedside is much improved, there is no more audible wheeze, he will be discharged home today. Physical Exam Vital Signs: Temp Pulse Resp BP Pulse Ox 98.2 F 76 16 138/66 H 95 07/30/17 12:54 07/30/17 16:10 07/30/17 16:10 07/30/17 12:54 07/30/17 16:10 Intake & Output 07/29/17 07/30/17 07/31/17 06:59 06:59 06:59 Intake Total 1888 1360 857 Balance 1888 1360 857 Weight 109.3 kg 106.3 kg General appearance: PRESENT: no acute distress, well-developed, well-nourished Head exam: PRESENT: atraumatic, normocephalic Eye exam: PRESENT: conjunctiva pink, EOMI, PERRLA Ear exam: PRESENT: normal external ear exam Mouth exam: PRESENT: moist, tongue midline Neck exam: PRESENT: full ROM Respiratory exam: PRESENT: clear to auscultation booker Cardiovascular exam: PRESENT: RRR, +S1, +S2 Pulses: PRESENT: normal dorsalis pedis pul, +2 pedal pulses bilateral Vascular exam: PRESENT: normal capillary refill GI/Abdominal exam: PRESENT: normal bowel sounds, soft Rectal exam: PRESENT: deferred Neurological exam: PRESENT: alert, awake, oriented to person, oriented to place , oriented to time, oriented to situation, CN II-XII grossly intact. ABSENT: motor sensory deficit Psychiatric exam: PRESENT: appropriate affect, normal mood. ABSENT: homicidal ideation, suicidal ideation Skin exam: PRESENT: dry, intact, warm. ABSENT: cyanosis, rash Results Laboratory Results: 07/28/17 06:15 07/28/17 06:15 07/26/17 07/26/17 07/26/17 11:05 11:05 18:18 Creatine Kinase 88 119 CK-MB (CK-2) 2.36 Troponin I < 0.012 07/26/17 07/27/17 07/27/17 18:18 00:15 00:15 Creatine Kinase 105 CK-MB (CK-2) 2.50 2.79 Troponin I < 0.012 < 0.012 Impressions: Chest X-Ray 07/25/17 19:58 IMPRESSION: NO ACUTE RADIOGRAPHIC FINDING IN THE CHEST. Chest/Abdomen CTA 07/26/17 00:00 IMPRESSION: No evidence for pulmonary embolic disease. No acute consolidations or pleural effusions are identified. Other findings as noted above
[2017-07-30 16:55] VITALS: BP 131/57
[2017-07-31] MEDS ORDERED: LEVOFLOXACIN 500 MG TABLET PO SCH (10:00)
== END 2017-07-30 18:14 | disposition home or self-care (01) | DRG 192 ==
LOC: ER 19:05 → EH 22:56 → 4N 23:59
PROVIDERS: ADMIT Internal Medicine; ATTEND Internal Medicine
DX: J44.1 Chronic obstructive pulmonary disease with (acute) exacerbation (principal); R07.89 Other chest pain; K21.9 Gastro-esophageal reflux disease without esophagitis; I10 Essential (primary) hypertension; E78.5 Hyperlipidemia, unspecified; M19.90 Unspecified osteoarthritis, unspecified site; Z79.82 Long term (current) use of aspirin; Z79.84 Long term (current) use of oral hypoglycemic drugs; Z79.899 Other long term (current) drug therapy; Z86.14 Personal history of Methicillin resistant Staphylococcus aureus infection; Z87.891 Personal history of nicotine dependence
CPT/HCPCS: 36415; 71010; 71275; 80048; 80053; 82550; 82553; 82962; 84484; 85025; 85027; 87040; 87070; 87086; 87205; 90686; 93005; 93010; 94640; 96361; 96365; 99285; J1650; J1956; J2920; J2930; J3490; J7030; J7620

== ENCOUNTER 2017-09-25 15:47 | Inpatient (IN) | payer MEDICARE, MEDICAID ==
[2017-09-25] MEDS ORDERED: AZITHROMYCIN INJ 500 MG VIAL IV ONE (16:19)
[2017-09-25] MEDS ORDERED: CEFTRIAXONE 1 GM/D5W RTU 1 GM/50 ML RTUPB IV ONE (16:19)
--- NOTE | 2017-09-25 16:20 | ER Document Report ---
ED Respiratory Problem - General Chief Complaint: Breathing Difficulty Stated Complaint: BREATHING PROBLEMS Time Seen by Provider: 09/25/17 16:16 Notes: 72-year-old male. Long-standing history of COPD followed by Dr. Diallo. Began having worsening shortness of breath today. EMS was called. Patient was on oxygen with difficult time breathing. Patient received 125 mg of Solu- Medrol and 2 [id number] breathing treatments in route. Patient still having difficulty breathing. Heart rate in the 120s. Wearing oxygen and oxygen saturation 91%. TRAVEL OUTSIDE OF THE [place] IN LAST 30 DAYS: No - HPI Patient complains to provider of: COPD Onset: This morning Duration: Continuous Quality of pain: No pain Severity: Moderate Pain Level: 2 Context: Hx COPD Short of Breath: Severe Cough: Nonproductive EMS treatments: Bronchodilators, Oxygen, Solumedrol Associated symptoms: None - Related Data Allergies/Adverse Reactions: No Known Allergies Allergy (Verified 11/09/16 09:27) Past Medical History - General Information source: Patient - Social History Smoking Status: Former Smoker Cigarette use (# per day): No Frequency of alcohol use: None Drug Abuse: None Lives with: Alone Family History: Arthritis, CVA, DM, Hypertension, Thyroid Disfunction - Past Medical History Cardiac Medical History: Reports: Hx Congestive Heart Failure, Hx Hypercholesterolemia, Hx Hypertension Pulmonary Medical History: Reports: Hx Asthma, Hx COPD Endocrine Medical History: Reports: Hx Diabetes Mellitus Type 2 Renal/ Medical History: Denies: Hx Peritoneal Dialysis GI Medical History: Reports: Hx Gastroesophageal Reflux Disease, Hx Colonoscopy Musculoskeltal Medical History: Reports Hx Arthritis Skin Medical History: Reports Hx MRSA Psychiatric Medical History: Denies: Hx Depression Infectious Medical History: Reports: Hx MRSA Past Surgical History: Reports: Hx Abdominal Surgery - Hernia Repair, Hx Genitourinary Surgery - SCRUTAL FLUID DRAINED, Hx Herniorrhaphy, Hx Inguinal Hernia - Immunizations Hx Diphtheria, Pertussis, Tetanus Vaccination: Yes Hx Pneumococcal Vaccination: 09/02/11 Review of Systems - Review of Systems Constitutional: denies: Fever, Malaise, Weakness EENT: denies: Blurred vision, Double vision, Nose congestion, Nose discharge Cardiovascular: Heart racing, Dyspnea. denies: Chest pain, Palpitations, Syncope, Dizziness Respiratory: Cough, Hurts to breathe, Short of breath, Wheezing Gastrointestinal: denies: Abdominal pain, Diarrhea, Nausea, Vomiting Genitourinary: denies: Burning, Dysuria, Discharge Musculoskeletal: denies: Back pain, Gout, Joint pain, Joint swelling, Muscle pain, Muscle stiffness, Leg swelling, Ankle swelling Skin: denies: Change in color, Change in hair/nails, Lumps, Rash Hematologic/Lymphatic: denies: Anemia, Blood clots, Easy bleeding, Easy bruising Neurological/Psychological: denies: Confusion, Weakness, Loss of power, Lost consciousness Physical Exam - Vital signs Interpretation: Tachycardic - General General appearance: Appears well, Alert - HEENT Head: Normocephalic, Atraumatic Eyes: Normal Pupils: PERRL - Respiratory Respiratory status: Respiratory distress, Labored Chest status: Nontender Breath sounds: Decreased air movement, Nonproductive cough, Wheezing Chest palpation: Normal - Cardiovascular Rhythm: Tachycardia Heart sounds: Normal auscultation Murmur: No - Abdominal Inspection: Normal Distension: No distension Bowel sounds: Normal Tenderness: Nontender Organomegaly: No organomegaly - Back Back: Normal, Nontender - Extremities General upper extremity: Normal inspection, Nontender, Normal color, Normal ROM , Normal temperature General lower extremity: Normal inspection, Nontender, Normal color, Normal ROM , Normal temperature, Normal weight bearing. No: Bonnie's sign - Neurological Neuro grossly intact: Yes Cognition: Normal Orientation: AAOx4 [place] Coma Scale Eye Opening: Spontaneous [place] Coma Scale Verbal: Oriented [place] Coma Scale Motor: Obeys Commands Mckenna Coma Scale Total: 15 Speech: Normal Motor strength normal: LUE, RUE, LLE, RLE Sensory: Normal - Psychological Associated symptoms: Normal affect, Normal mood - Skin Skin Temperature: Warm Skin Moisture: Dry Skin Color: Normal Course - Re-evaluation Re-evalutation: 09/25/17 18:[address] Diallo regarding patient. Will admit to the hospital at this time. Breathing treatments, steroids, antibiotics started based on standard of care for COPD exacerbation. Patient does have slightly elevated blood count. Patient has received blood cultures as well. Breathing is much better at this time. Anticipate admission shortly. 09/25/17 19:16 Patient's breathing is improved. Consult with Dr. Diallo. Will admit at this time. - Laboratory Result Diagrams: 09/25/17 16:00 09/25/17 16:00 Laboratory results interpreted by me: 09/25/17 09/25/17 09/25/17 16:00 16:00 16:58 WBC 17.7 H RDW 14.7 H Seg Neutrophils % 80.9 H Lymphocytes % 7.1 L Absolute Neutrophils 14.3 H Absolute Monocytes 2.0 H Carbonic Acid 0.85 L ABG pH 7.53 H ABG pCO2 28.2 L ABG pO2 65.9 L Sodium 132.1 L Potassium 3.4 L Carbon Dioxide 20 L Calcium 8.1 L Total Bilirubin 2.0 H Direct Bilirubin 0.8 H Albumin 3.4 L - EKG Interpretation by Me EKG shows normal: [place], Intervals, QRS Complexes, ST-T Waves Rate: Tachycardia Critical Care Note - Critical Care Note Total time excluding time spent on procedures (mins): 60 Comments: Tachycardia, hypoxia, respiratory distress Discharge - Discharge Clinical Impression: COPD exacerbation Disposition: ADMITTED INPATIENT Admitting Provider: [facility] Admitted: Telemetry
[2017-09-25 17:14] LABS: ABSOLUTE BASOPHILS # (AUTO) 0.1 10^3/uL (0.0-0.2); ABSOLUTE LYMPHOCYTES (AUTO) 1.3 10^3/uL (0.5-4.7); ABSOLUTE NEUT (AUTO) 14.3 10^3/uL (1.7-8.2); BASOPHILS % (AUTO) 0.5 % (0-2); EOSINOPHILS % (AUTO) 0.1 % (0-6); HEMATOCRIT 43.1 % (37.9-51.0); HEMOGLOBIN 14.8 g/dL (13.5-17.0); LYMPHOCYTES % (AUTO) 7.1 % (13-45); MEAN CORPUSCULAR HEMOGLOBIN 31.4 pg (27.0-33.4); MEAN CORPUSCULAR HGB CONC 34.4 g/dL (32.0-36.0); MEAN CORPUSCULAR VOLUME 91 fl (80-97); MONOCYTES % (AUTO) 11.4 % (3-13); PLATELET COUNT 234 10^3/uL (150-450); RED BLOOD COUNT 4.73 10^6/uL (4.35-5.55); RED CELL DISTRIBUTION WIDTH 14.7 % (11.5-14.0); SEGMENTED NEUTROPHILS % (AUTO) 80.9 % (42-78); TOTAL CELLS COUNTED % (AUTO) 100 %; WHITE BLOOD COUNT 17.7 10^3/uL (4.0-10.5)
[2017-09-25 17:14] LABS: ARTERIAL BLOOD BASE EXCESS 1.7 mmol/L; ARTERIAL BLOOD H2CO3 0.85 mmol/L (1.05-1.35); ARTERIAL BLOOD HCO3 22.9 mmol/L (20-26); ARTERIAL BLOOD O2 SATURATION 95.2 % (94-98); ARTERIAL BLOOD PCO2 28.2 mmHg (35-45); ARTERIAL BLOOD PH 7.53 (7.35-7.45); ARTERIAL BLOOD PO2 65.9 mmHg (80-100); ARTERIAL BLOOD TOTAL CO2 23.7 mmol/L (23-27)
[2017-09-25 17:25] LABS: ARTERIAL BLOOD FIO2 2L
[2017-09-25] MEDS ORDERED: CEFTRIAXONE SODIUM 1,000 MG in NORMAL SALINE 50 ML IV ONE (17:30)
[2017-09-25 17:32] LABS: ALANINE AMINOTRANSFERASE 27 U/L (21-72); ALBUMIN 3.4 g/dL (3.5-5.0); ALKALINE PHOSPHATASE 44 U/L (38-126); ANION GAP 13 (5-19); ASPARTATE AMINO TRANSFERASE 24 U/L (17-59); BILIRUBIN,DIRECT 0.8 mg/dL (0.0-0.4); BLOOD UREA NITROGEN 13 mg/dL (7-20); CALCIUM 8.1 mg/dL (8.4-10.2); CARBON DIOXIDE 20 mmol/L (22-30); CHLORIDE 99 mmol/L (98-107); GLUCOSE 106 mg/dL (75-110); POTASSIUM 3.4 mmol/L (3.6-5.0); SODIUM 132.1 mmol/L (137-145); TOTAL PROTEIN 6.5 g/dL (6.3-8.2)
[2017-09-25 17:44] LABS: NT PRO BNP 608 pg/mL (5-900)
[2017-09-25 17:45] LABS: TROPONIN I < 0.012 ng/mL
--- NOTE | 2017-09-25 18:43 | RADIOLOGY REPORT (SQ) ---
EXAM DESCRIPTION: CHEST SINGLE VIEW COMPLETED DATE/TIME: 09/25/2017 6:20 pm REASON FOR STUDY: sob COMPARISON: 07/25/2017 EXAM PARAMETERS: NUMBER OF VIEWS: One view. TECHNIQUE: Single frontal radiographic view of the chest acquired. RADIATION DOSE: NA LIMITATIONS: None. FINDINGS: LUNGS AND PLEURA: No opacities, masses or pneumothorax. No pleural effusion. MEDIASTINUM AND HILAR STRUCTURES: No masses. Contour normal. HEART AND VASCULAR STRUCTURES: Heart normal in size. Normal vasculature. BONES: No acute findings. HARDWARE: None in the chest. OTHER: No other significant finding. IMPRESSION: NO ACUTE RADIOGRAPHIC FINDING IN THE CHEST. TECHNICAL DOCUMENTATION: JOB ID: [id number] [employer]- All Rights Reserved
[2017-09-25] MEDS ORDERED: NORMAL SALINE 1000 ML 1,000 ML IV PRN (20:09)
[2017-09-25] MEDS ORDERED: CEFEPIME 2 GM/D5W RTU 2 GM/50 ML RTUPB IV SCH (20:15)
[2017-09-25] MEDS ORDERED: (PENDING PHARMACY ID) (Roflumilast [Daliresp 500 Mcg Tablet] 500 MCG) PO SCH (20:15)
[2017-09-25] MEDS ORDERED: ENOXAPARIN SODIUM INJ 40 MG/0.4 ML DISP.SYRIN SUBCUT ONE (21:00)
[2017-09-25] MEDS ORDERED: ASPIRIN 81 MG TABLET, CHEWABLE PO ONE (21:00)
[2017-09-25] MEDS ORDERED: ROFLUMILAST 500 MCG TABLET PO ONE (21:00)
[2017-09-25] MEDS ORDERED: LEVOFLOXACIN 750 MG/D5W RTU 750 MG/150 ML RTUPB IV SCH (21:00)
[2017-09-25] MEDS ORDERED: LANSOPRAZOLE 15 MG TAB.RAP.DR PO ONE (21:00)
[2017-09-25] MEDS ORDERED: AMLODIPINE BESYLATE 10 MG TABLET PO ONE (21:00)
[2017-09-25 21:09] LABS: LIPASE 37.8 U/L (23-300)
[2017-09-25 21:40] LABS: THYROID STIMULATING HORMONE 4.58 uIU/mL (0.47-4.68)
[2017-09-25 21:48] LABS: INTERNATIONAL RATION (INR) 1.07; PROTHROMBIN TIME 14.6 SEC (11.4-15.4)
[2017-09-25] MEDS ORDERED: IPRATROPIUM/ALBUTEROL 0.5-2.5 MG/3 ML AMPUL NEB ONE (21:49)
[2017-09-25] MEDS ORDERED: CEFEPIME HCL 2 GM in DEXTROSE 5%-WATER 50 ML IV SCH (22:00)
[2017-09-25] MEDS ORDERED: BUDESONIDE/FORMOTEROL 160-4.5 MCG 60 PUFF/6 GM MDI IH SCH (22:00)
[2017-09-25] MEDS ORDERED: METFORMIN HCL 500 MG TABLET PO SCH (22:00)
[2017-09-25] MEDS ORDERED: (PENDING PHARMACY ID) (Metformin Hcl [Metformin Hcl Er] 500 MG) PO SCH (22:00)
[2017-09-25] MEDS: IPRATROPIUM/ALBUTEROL 0.5-2.5 MG/3 ML AMPUL NEB SCH (23:23)
[2017-09-26 00:42] LABS: APPEARANCE,URINE CLEAR; BILIRUBIN,URINE NEGATIVE (NEGATIVE); COLOR,URINE YELLOW; GLUCOSE, URINE 150 mg/dL (NEGATIVE); KETONES,URINE TRACE mg/dL (NEGATIVE); LEUKOCYTE ESTERASE,URINE NEGATIVE (NEGATIVE); NITRITE,URINE NEGATIVE (NEGATIVE); PROTEIN,URINE 30 mg/dL (NEGATIVE); URINE SPECIFIC GRAVITY 1.014; UROBILINOGEN,URINE NEGATIVE mg/dL (<2.0)
[2017-09-26 00:59] LABS: URINE AMPHETAMINES SCREEN NEGATIVE; URINE BARBITURATES SCREEN NEGATIVE; URINE BENZODIAZEPINES SCREEN NEGATIVE; URINE COCAINE SCREEN NEGATIVE; URINE MARIJUANA (THC) SCREEN NEGATIVE; URINE METHADONE SCREEN NEGATIVE; URINE PHENCYCLIDINE SCREEN NEGATIVE
[2017-09-26] MEDS: IPRATROPIUM/ALBUTEROL 0.5-2.5 MG/3 ML AMPUL NEB SCH ×8 (01:58→23:40)
[2017-09-26] MEDS ORDERED: LANSOPRAZOLE 15 MG TAB.RAP.DR PO SCH (06:00)
[2017-09-26] MEDS: LANSOPRAZOLE 15 MG TAB.RAP.DR PO SCH (06:39)
[2017-09-26 09:27] LABS: HEMATOCRIT 41.8 % (37.9-51.0); HEMOGLOBIN 14.5 g/dL (13.5-17.0); MEAN CORPUSCULAR HEMOGLOBIN 31.5 pg (27.0-33.4); MEAN CORPUSCULAR HGB CONC 34.7 g/dL (32.0-36.0); MEAN CORPUSCULAR VOLUME 91 fl (80-97); PLATELET COUNT 215 10^3/uL (150-450); RED BLOOD COUNT 4.61 10^6/uL (4.35-5.55); RED CELL DISTRIBUTION WIDTH 14.6 % (11.5-14.0); WHITE BLOOD COUNT 14.1 10^3/uL (4.0-10.5)
[2017-09-26 09:43] LABS: ALANINE AMINOTRANSFERASE 34 U/L (21-72); ALKALINE PHOSPHATASE 48 U/L (38-126); ANION GAP 13 (5-19); ASPARTATE AMINO TRANSFERASE 34 U/L (17-59); BILIRUBIN,DIRECT 0.4 mg/dL (0.0-0.4); BILIRUBIN,TOTAL 1.1 mg/dL (0.2-1.3); BLOOD UREA NITROGEN 19 mg/dL (7-20); CALCIUM 9.4 mg/dL (8.4-10.2); CARBON DIOXIDE 21 mmol/L (22-30); CHLORIDE 98 mmol/L (98-107); GLUCOSE 178 mg/dL (75-110); SODIUM 132.4 mmol/L (137-145)
[2017-09-26] MEDS ORDERED: ROFLUMILAST 500 MCG TABLET PO SCH (10:00)
[2017-09-26] MEDS ORDERED: AMLODIPINE BESYLATE 10 MG TABLET PO SCH (10:00)
[2017-09-26] MEDS ORDERED: ENOXAPARIN SODIUM INJ 40 MG/0.4 ML DISP.SYRIN SUBCUT SCH (10:00)
[2017-09-26] MEDS ORDERED: ASPIRIN 81 MG TABLET, CHEWABLE PO SCH (10:00)
[2017-09-26 10:19] LABS: ABSOLUTE LYMPHOCYTES# (MANUAL) 0.3 10^3/uL (0.5-4.7); ABSOLUTE MONOCYTES # (MANUAL) 0.6 10^3/uL (0.1-1.4); ABSOLUTE NEUTROPHILS# (MANUAL) 13.3 10^3/uL (1.7-8.2); BAND NEUTROPHILS % (MANUAL) 1 % (3-5); BASOPHILS % (MANUAL) 0 % (0-2); EOSINOPHILS % (MANUAL) 0 % (0-6); LYMPHOCYTES % (MANUAL) 2 % (13-45); MONOCYTES % (MANUAL) 4 % (3-13); PLATELET COMMENT ADEQUATE; POLYCHROMASIA SLIGHT; SEGMENTED NEUTROPHILS % (MAN) 93 % (42-78); TOTAL CELLS COUNTED 100; TOXIC GRANULATION 1+; TOXIC VACUOLATION PRESENT
[2017-09-26] MEDS: ENOXAPARIN SODIUM INJ 40 MG/0.4 ML DISP.SYRIN SUBCUT SCH (11:08)
[2017-09-26] MEDS: BUDESONIDE/FORMOTEROL 160-4.5 MCG 60 PUFF/6 GM MDI IH SCH ×2 (11:09→22:21)
[2017-09-26] MEDS: ASPIRIN 81 MG TABLET, CHEWABLE PO SCH (11:09)
[2017-09-26] MEDS: ROFLUMILAST 500 MCG TABLET PO SCH (11:10)
[2017-09-26] MEDS: AMLODIPINE BESYLATE 10 MG TABLET PO SCH (11:10)
[2017-09-26] MEDS: METFORMIN HCL 500 MG TABLET PO SCH ×3 (11:14→22:22)
[2017-09-26] MEDS: CEFEPIME HCL 2 GM in DEXTROSE 5%-WATER 50 ML IV SCH ×2 (11:23→22:22)
--- NOTE | 2017-09-26 12:01 | EKG REPORT ---
SEVERITY:- ABNORMAL ECG - SINUS TACHYCARDIA LEFT ANTERIOR FASCICULAR BLOCK BORDERLINE PROLONGED QT INTERVAL : Confirmed by: Deborah Tracy 26-Sep-2017 12:00:29
--- NOTE | 2017-09-26 12:02 | EKG REPORT ---
SEVERITY:- ABNORMAL ECG - SINUS TACHYCARDIA LEFT ANTERIOR FASCICULAR BLOCK BORDERLINE T ABNORMALITIES, ANT-LAT LEADS : Confirmed by: Deborah Tracy 26-Sep-2017 12:00:33
[2017-09-26] MEDS: NORMAL SALINE 1000 ML 1,000 ML IV PRN (17:27)
[2017-09-26] MEDS: METHYLPREDNISOLONE INJ 125 MG/2 ML SDV IV SCH (17:30)
[2017-09-26] MEDS: LEVOFLOXACIN 750 MG/D5W RTU 750 MG/150 ML RTUPB IV SCH (20:16)
--- NOTE | 2017-09-26 20:59 | PDOC H&P ---
History of Present Illness Admission Date/PCP: 09/25/17 18:14 ZAIRE MILTON MD History of Present Illness: ANDRE BATES is a 72 year old male, He has a history of chronic obstructive pulmonary disease type 2 diabetes mellitus ,he developed progressive shortness of breath in the last few days, he called the rescue squad to his residence, he was transferred from his residence to the emergency room for evaluation of his symptoms he was treated with bronchodilators, IV Solu -Medrol en-route to the emergency room. he was evaluated in the emergency room , ABG was done on FiO2 of 2 L, pH 7.530, PCO2 20.2, PO2 65.9, bicarbonate 22.9. The chest x-ray did not show an acute pathology. He was treated in the emergency room without improvement of his symptoms because of impending acute respiratory failure hospital admission was advised Past Medical History Cardiac Medical History: Reports: Hypertension Pulmonary Medical History: Reports: Asthma, Chronic Obstructive Pulmonary Disease (COPD) Endocrine Medical History: Reports: Diabetes Mellitus Type 2 GI Medical History: Reports: Gastroesophageal Reflux Disease Musculoskeltal Medical History: Reports: Arthritis Psychiatric Medical History: Denies: Depression Infectious Medical History: Reports: Methicillin-Resistant Staph Aureus Past Surgical History Past Surgical History: Reports: Herniorrhaphy Social History Lives with: Alone Smoking Status: Former Smoker Pipes Per Day: 40 Last Time Smoked: 2002 Frequency of Alcohol Use: Occasional Hx Recreational Drug Use: No Drugs: None Hx Prescription Drug Abuse: No - Advance Directive Resuscitation Status: Full Code Family History Family History: Arthritis, CVA, DM, Hypertension, Thyroid Disfunction Parental Family History Reviewed: Yes Children Family History Reviewed: Yes Sibling(s) Family History Reviewed.: Yes Medication/Allergy Home Medications: Albuterol Sulfate [Proair Hfa Inhalation Aerosol 8.5 gm Mdi] 2 puff IH Q6HP PRN 09/25/17 Amlodipine Besylate [Norvasc 10 mg Tablet] 10 mg PO DAILY 09/25/17 Aspirin [Aspirin 81 mg Chewable Tablet] 81 mg PO DAILY 09/25/17 Budesonide/Formoterol Fumarate [Symbicort 160-4.5 Mcg Inhaler] 2 puff IH Q12 Ipratropium/Albuterol Sulfate [Duoneb 3 ml Ampul] 3 ml NEB RTQ4 09/25/17 Metformin HCl [Metformin HCl ER] 500 mg PO Q12 09/25/17 Omeprazole 20 mg PO DAILY 09/25/17 Roflumilast [Daliresp 500 mcg Tablet] 500 mcg PO DAILY 09/25/17 Allergies/Adverse Reactions: No Known Allergies Allergy (Verified 11/09/16 09:27) Review of Systems Constitutional: ABSENT: chills, fever(s), headache(s), weight gain, weight loss Eyes: ABSENT: visual disturbances Ears: ABSENT: hearing changes Cardiovascular: ABSENT: chest pain, dyspnea on exertion, edema, orthropnea, palpitations Respiratory: PRESENT: dyspnea Gastrointestinal: ABSENT: abdominal pain, constipation, diarrhea, hematemesis, hematochezia, nausea, vomiting Genitourinary: ABSENT: dysuria, hematuria Musculoskeletal: ABSENT: joint swelling Integumentary: ABSENT: rash, wounds Neurological: ABSENT: abnormal gait, abnormal speech, confusion, dizziness, focal weakness, syncope Psychiatric: ABSENT: anxiety, depression, homidical ideation, suicidal ideation Endocrine: ABSENT: cold intolerance, heat intolerance, menstrual abnormalities, polydipsia, polyuria Hematologic/Lymphatic: ABSENT: easy bleeding, easy bruising, lymphadenopathy Physical Exam Vital Signs: Temp Pulse Resp BP Pulse Ox 98.2 F 97 20 135/65 H 99 09/26/17 15:47 09/26/17 19:00 09/26/17 16:50 09/26/17 15:47 09/26/17 16:50 Intake & Output 09/25/17 09/26/17 09/27/17 06:59 06:59 06:59 Intake Total 80 1424 Balance 80 1424 Weight 107.955 kg General appearance: PRESENT: severe distress Head exam: PRESENT: atraumatic, normocephalic Eye exam: PRESENT: PERRLA Mouth exam: PRESENT: moist, tongue midline Respiratory exam: PRESENT: accessory muscle use, wheezes Cardiovascular exam: PRESENT: RRR, +S1, +S2 Pulses: PRESENT: normal dorsalis pedis pul, +2 pedal pulses bilateral Vascular exam: PRESENT: normal capillary refill GI/Abdominal exam: PRESENT: normal bowel sounds, soft Rectal exam: PRESENT: deferred Neurological exam: PRESENT: alert Psychiatric exam: PRESENT: appropriate affect, normal mood Skin exam: PRESENT: dry, intact, warm. ABSENT: cyanosis, rash Results Laboratory Results: 09/26/17 09:03 09/26/17 09:03 09/25/17 09/26/17 09/26/17 21:20 00:21 09:03 WBC 14.1 H RBC 4.61 Hgb 14.5 Hct 41.8 MCV 91 MCH 31.5 MCHC 34.7 RDW 14.6 H Plt Count 215 Seg Neutrophils % Not Reportable Lymphocytes % Not Reportable Monocytes % Not Reportable Eosinophils % Not Reportable Basophils % Not Reportable Absolute Neutrophils Not Reportable Absolute Lymphocytes Not Reportable Absolute Monocytes Not Reportable Absolute Eosinophils Not Reportable Absolute Basophils Not Reportable Sodium Potassium Chloride Carbon Dioxide Anion Gap BUN Creatinine Est GFR ( Amer) Est GFR (Non-Af Amer) Glucose Calcium Total Bilirubin AST ALT Alkaline Phosphatase Ammonia < 8.7 L Total Protein Albumin Urine Color YELLOW Urine Appearance CLEAR Urine pH 5.0 Ur Specific [place] 1.014 Urine Protein 30 H Urine Glucose (UA) 150 H Urine Ketones TRACE H Urine Blood MODERATE H Urine Nitrite NEGATIVE Ur Leukocyte Esterase NEGATIVE Urine WBC (Auto) 13 Urine RBC (Auto) 2 09/26/17 09:03 WBC RBC Hgb Hct MCV MCH MCHC RDW Plt Count Seg Neutrophils % Lymphocytes % Monocytes % Eosinophils % Basophils % Absolute Neutrophils Absolute Lymphocytes Absolute Monocytes Absolute Eosinophils Absolute Basophils Sodium 132.4 L Potassium 4.0 Chloride 98 Carbon Dioxide 21 L Anion Gap 13 BUN 19 Creatinine 0.95 Est GFR ( Amer) > 60 Est GFR (Non-Af Amer) > 60 Glucose 178 H Calcium 9.4 Total Bilirubin 1.1 AST 34 ALT 34 Alkaline Phosphatase 48 Ammonia Total Protein 7.0 Albumin 4.0 Urine Color Urine Appearance Urine pH Ur Specific [place] Urine Protein Urine Glucose (UA) Urine Ketones Urine Blood Urine Nitrite Ur Leukocyte Esterase Urine WBC (Auto) Urine RBC (Auto) 09/25/17 09/25/17 09/26/17 21:20 21:20 02:50 Creatine Kinase 473 H 465 H CK-MB (CK-2) 1.90 09/26/17 09/26/17 09/26/17 02:50 09:03 09:03 Creatine Kinase 514 H CK-MB (CK-2) 3.94 7.02 H Impressions: Chest X-Ray 09/25/17 18:10 IMPRESSION: NO ACUTE RADIOGRAPHIC FINDING IN THE CHEST. Assessment & Plan - Diagnosis (1) Acute exacerbation of chronic obstructive airways disease Is this a current diagnosis for this admission?: Yes Plan: Patient is very symptomatic with impending respiratory failure he was treated with Solu-Medrol, bronchodilators, he has leukocytosis this could be from the Solu-Medrol that was administered in the ambulance, will admit to the hospital continue to follow very closely presently not requiring mechanical ventilation there is increased work of breathing as manifested with respiratory alkalosis (2) Acute respiratory alkalosis Is this a current diagnosis for this admission?: Yes Plan: The acute respiratory alkalosis is a manifestation of the increase work of breathing the patient is expressing. (4) Type 2 diabetes mellitus Qualifiers: Diabetes mellitus complication status: without complication Diabetes mellitus mcc insulin use: without mcc use Qualified Code(s): E11.9 - Type 2 diabetes mellitus without complications Is this a current diagnosis for this admission?: Yes
--- NOTE | 2017-09-26 21:03 | PDOC PROGRESS REPORT ---
Subjective Progress Note for:: 09/26/17 Subjective:: Patient was admitted yesterday for the management of acute COPD exacerbation with impending respiratory failure, patient is still in distress, wheezing, shortness of breath Reason For Visit: ACUTE COPD EXACERBATION,LEUCOCYTOSIS Physical Exam Vital Signs: Temp Pulse Resp BP Pulse Ox 98.2 F 97 20 135/65 H 99 09/26/17 15:47 09/26/17 19:00 09/26/17 16:50 09/26/17 15:47 09/26/17 16:50 Intake & Output 09/25/17 09/26/17 09/27/17 06:59 06:59 06:59 Intake Total 80 1424 Balance 80 1424 Weight 107.955 kg General appearance: PRESENT: mild distress Eye exam: PRESENT: PERRLA Respiratory exam: PRESENT: wheezes Cardiovascular exam: PRESENT: +S1, +S2 GI/Abdominal exam: PRESENT: soft Neurological exam: PRESENT: alert, CN II-XII grossly intact Results Laboratory Results: 09/26/17 09:03 09/26/17 09:03 09/25/17 09/26/17 09/26/17 21:20 00:21 09:03 WBC 14.1 H RBC 4.61 Hgb 14.5 Hct 41.8 MCV 91 MCH 31.5 MCHC 34.7 RDW 14.6 H Plt Count 215 Seg Neutrophils % Not Reportable Lymphocytes % Not Reportable Monocytes % Not Reportable Eosinophils % Not Reportable Basophils % Not Reportable Absolute Neutrophils Not Reportable Absolute Lymphocytes Not Reportable Absolute Monocytes Not Reportable Absolute Eosinophils Not Reportable Absolute Basophils Not Reportable Sodium Potassium Chloride Carbon Dioxide Anion Gap BUN Creatinine Est GFR ( Amer) Est GFR (Non-Af Amer) Glucose Calcium Total Bilirubin AST ALT Alkaline Phosphatase Ammonia < 8.7 L Total Protein Albumin Urine Color YELLOW Urine Appearance CLEAR Urine pH 5.0 Ur Specific [place] 1.014 Urine Protein 30 H Urine Glucose (UA) 150 H Urine Ketones TRACE H Urine Blood MODERATE H Urine Nitrite NEGATIVE Ur Leukocyte Esterase NEGATIVE Urine WBC (Auto) 13 Urine RBC (Auto) 2 09/26/17 09:03 WBC RBC Hgb Hct MCV MCH MCHC RDW Plt Count Seg Neutrophils % Lymphocytes % Monocytes % Eosinophils % Basophils % Absolute Neutrophils Absolute Lymphocytes Absolute Monocytes Absolute Eosinophils Absolute Basophils Sodium 132.4 L Potassium 4.0 Chloride 98 Carbon Dioxide 21 L Anion Gap 13 BUN 19 Creatinine 0.95 Est GFR ( Amer) > 60 Est GFR (Non-Af Amer) > 60 Glucose 178 H Calcium 9.4 Total Bilirubin 1.1 AST 34 ALT 34 Alkaline Phosphatase 48 Ammonia Total Protein 7.0 Albumin 4.0 Urine Color Urine Appearance Urine pH Ur Specific [place] Urine Protein Urine Glucose (UA) Urine Ketones Urine Blood Urine Nitrite Ur Leukocyte Esterase Urine WBC (Auto) Urine RBC (Auto) 09/25/17 09/25/17 09/26/17 21:20 21:20 02:50 Creatine Kinase 473 H 465 H CK-MB (CK-2) 1.90 09/26/17 09/26/17 09/26/17 02:50 09:03 09:03 Creatine Kinase 514 H CK-MB (CK-2) 3.94 7.02 H Impressions: Chest X-Ray 09/25/17 18:10 IMPRESSION: NO ACUTE RADIOGRAPHIC FINDING IN THE CHEST. Assessment & Plan - Diagnosis (1) Acute exacerbation of chronic obstructive airways disease Is this a current diagnosis for this admission?: Yes Plan: Start Solu-Medrol 125 mg IV every 8 hours continue bronchodilators, (2) Acute respiratory alkalosis Is this a current diagnosis for this admission?: Yes (4) Type 2 diabetes mellitus Qualifiers: Diabetes mellitus complication status: without complication Diabetes mellitus joint terminal attack controller insulin use: without joint terminal attack controller use Qualified Code(s): E11.9 - Type 2 diabetes mellitus without complications Is this a current diagnosis for this admission?: Yes
[2017-09-27] MEDS: METHYLPREDNISOLONE INJ 125 MG/2 ML SDV IV SCH ×3 (01:08→18:05)
[2017-09-27] MEDS: IPRATROPIUM/ALBUTEROL 0.5-2.5 MG/3 ML AMPUL NEB SCH ×6 (01:48→19:51)
[2017-09-27] MEDS: LANSOPRAZOLE 15 MG TAB.RAP.DR PO SCH (05:26)
[2017-09-27 06:27] LABS: HEMATOCRIT 39.1 % (37.9-51.0); HEMOGLOBIN 13.5 g/dL (13.5-17.0); MEAN CORPUSCULAR HEMOGLOBIN 31.3 pg (27.0-33.4); MEAN CORPUSCULAR HGB CONC 34.5 g/dL (32.0-36.0); MEAN CORPUSCULAR VOLUME 91 fl (80-97); PLATELET COUNT 225 10^3/uL (150-450); RED BLOOD COUNT 4.32 10^6/uL (4.35-5.55); RED CELL DISTRIBUTION WIDTH 14.6 % (11.5-14.0); WHITE BLOOD COUNT 11.8 10^3/uL (4.0-10.5)
[2017-09-27] MEDS: NORMAL SALINE 1000 ML 1,000 ML IV PRN ×2 (06:28→19:10)
[2017-09-27 06:32] LABS: ANION GAP 10 (5-19); BLOOD UREA NITROGEN 23 mg/dL (7-20); CALCIUM 9.2 mg/dL (8.4-10.2); CARBON DIOXIDE 22 mmol/L (22-30); CHLORIDE 103 mmol/L (98-107); GLUCOSE 167 mg/dL (75-110); POTASSIUM 3.9 mmol/L (3.6-5.0); SODIUM 135.4 mmol/L (137-145)
[2017-09-27 07:17] LABS: ABSOLUTE LYMPHOCYTES# (MANUAL) 0.1 10^3/uL (0.5-4.7); ABSOLUTE MONOCYTES # (MANUAL) 0.5 10^3/uL (0.1-1.4); ABSOLUTE NEUTROPHILS# (MANUAL) 11.2 10^3/uL (1.7-8.2); BAND NEUTROPHILS % (MANUAL) 2 % (3-5); BASOPHILS % (MANUAL) 0 % (0-2); EOSINOPHILS % (MANUAL) 0 % (0-6); LYMPHOCYTES % (MANUAL) 1 % (13-45); MONOCYTES % (MANUAL) 4 % (3-13); SEGMENTED NEUTROPHILS % (MAN) 93 % (42-78); TOTAL CELLS COUNTED 100
[2017-09-27 07:19] LABS: ANISOCYTOSIS 2+; BURR CELLS 1+; PLATELET COMMENT ADEQUATE; PLATELET GIANT PRESENT; PLATELET LARGE PRESENT; POIKILOCYTOSIS 2+; SCHISTOCYTES 1+; TOXIC GRANULATION 2+
[2017-09-27] MEDS: METFORMIN HCL 500 MG TABLET PO SCH ×4 (08:20→22:18)
[2017-09-27] MEDS ORDERED: ALBUTEROL SULFATE 0.083% NEB 2.5 MG/3 ML AMPUL NEB PRN (10:15)
[2017-09-27] MEDS: ENOXAPARIN SODIUM INJ 40 MG/0.4 ML DISP.SYRIN SUBCUT SCH (10:50)
[2017-09-27] MEDS: AMLODIPINE BESYLATE 10 MG TABLET PO SCH (10:51)
[2017-09-27] MEDS: ROFLUMILAST 500 MCG TABLET PO SCH (10:52)
[2017-09-27] MEDS: CEFEPIME HCL 2 GM in DEXTROSE 5%-WATER 50 ML IV SCH ×2 (10:53→22:18)
[2017-09-27] MEDS: ASPIRIN 81 MG TABLET, CHEWABLE PO SCH (10:53)
[2017-09-27] MEDS: BUDESONIDE/FORMOTEROL 160-4.5 MCG 60 PUFF/6 GM MDI IH SCH ×2 (10:59→22:18)
[2017-09-27] MEDS: LEVOFLOXACIN 750 MG/D5W RTU 750 MG/150 ML RTUPB IV SCH (20:18)
--- NOTE | 2017-09-27 21:33 | PDOC PROGRESS REPORT ---
Subjective Progress Note for:: 09/27/17 Subjective:: Patient was seen by the bedside, he continues to wheeze with respiratory distress, continues to require bronchodilators frequently on IV Solu-Medrol Reason For Visit: ACUTE COPD EXACERBATION,LEUCOCYTOSIS Physical Exam Vital Signs: Temp Pulse Resp BP Pulse Ox 97.9 F 88 25 H 133/63 H 92 09/27/17 19:41 09/27/17 19:51 09/27/17 19:51 09/27/17 19:41 09/27/17 19:51 Intake & Output 09/26/17 09/27/17 09/28/17 06:59 06:59 06:59 Intake Total 80 2514 2330 Balance 80 2514 2330 Weight 107.955 kg 105.8 kg General appearance: PRESENT: mild distress Eye exam: PRESENT: PERRLA Respiratory exam: PRESENT: wheezes Cardiovascular exam: PRESENT: +S1, +S2 GI/Abdominal exam: PRESENT: soft Neurological exam: PRESENT: alert Results Laboratory Results: 09/27/17 05:37 09/27/17 05:37 09/27/17 09/27/17 05:37 05:37 WBC 11.8 H RBC 4.32 L Hgb 13.5 Hct 39.1 MCV 91 MCH 31.3 MCHC 34.5 RDW 14.6 H Plt Count 225 Seg Neutrophils % Not Reportable Lymphocytes % Not Reportable Monocytes % Not Reportable Eosinophils % Not Reportable Basophils % Not Reportable Absolute Neutrophils Not Reportable Absolute Lymphocytes Not Reportable Absolute Monocytes Not Reportable Absolute Eosinophils Not Reportable Absolute Basophils Not Reportable Sodium 135.4 L Potassium 3.9 Chloride 103 Carbon Dioxide 22 Anion Gap 10 BUN 23 H Creatinine 0.97 Est GFR ( Amer) > 60 Est GFR (Non-Af Amer) > 60 Glucose 167 H Calcium 9.2 Magnesium 2.0 09/25/17 09/25/17 09/26/17 21:20 21:20 02:50 Creatine Kinase 473 H 465 H CK-MB (CK-2) 1.90 09/26/17 09/26/17 09/26/17 02:50 09:03 09:03 Creatine Kinase 514 H CK-MB (CK-2) 3.94 7.02 H Impressions: Chest X-Ray 09/25/17 18:10 IMPRESSION: NO ACUTE RADIOGRAPHIC FINDING IN THE CHEST. Assessment & Plan - Diagnosis (1) Acute exacerbation of chronic obstructive airways disease Is this a current diagnosis for this admission?: Yes Plan: Patient will continue IV Solu-Medrol, bronchodilators, antibiotic (2) Acute respiratory alkalosis Is this a current diagnosis for this admission?: Yes (3) Acute respiratory distress Is this a current diagnosis for this admission?: Yes (4) Type 2 diabetes mellitus Qualifiers: Diabetes mellitus complication status: without complication Diabetes mellitus ship engines operating engineer insulin use: without ship engines operating engineer use Qualified Code(s): E11.9 - Type 2 diabetes mellitus without complications Is this a current diagnosis for this admission?: Yes
[2017-09-28] MEDS: IPRATROPIUM/ALBUTEROL 0.5-2.5 MG/3 ML AMPUL NEB SCH ×6 (00:23→20:14)
[2017-09-28] MEDS: METHYLPREDNISOLONE INJ 125 MG/2 ML SDV IV SCH ×3 (02:01→18:00)
[2017-09-28] MEDS: LANSOPRAZOLE 15 MG TAB.RAP.DR PO SCH (05:12)
[2017-09-28 07:24] LABS: HEMATOCRIT 40.2 % (37.9-51.0); HEMOGLOBIN 13.6 g/dL (13.5-17.0); MEAN CORPUSCULAR HEMOGLOBIN 31.5 pg (27.0-33.4); MEAN CORPUSCULAR HGB CONC 33.8 g/dL (32.0-36.0); MEAN CORPUSCULAR VOLUME 93 fl (80-97); PLATELET COUNT 255 10^3/uL (150-450); RED BLOOD COUNT 4.31 10^6/uL (4.35-5.55); RED CELL DISTRIBUTION WIDTH 14.8 % (11.5-14.0); WHITE BLOOD COUNT 10.1 10^3/uL (4.0-10.5)
[2017-09-28 07:41] LABS: ANION GAP 11 (5-19); BLOOD UREA NITROGEN 23 mg/dL (7-20); CALCIUM 9.1 mg/dL (8.4-10.2); CARBON DIOXIDE 24 mmol/L (22-30); CHLORIDE 104 mmol/L (98-107); GLUCOSE 181 mg/dL (75-110); MAGNESIUM 2.1 mg/dL (1.6-2.3); SODIUM 138.7 mmol/L (137-145)
[2017-09-28 07:52] LABS: ABSOLUTE LYMPHOCYTES# (MANUAL) 0.5 10^3/uL (0.5-4.7); ABSOLUTE MONOCYTES # (MANUAL) 1.2 10^3/uL (0.1-1.4); ABSOLUTE NEUTROPHILS# (MANUAL) 8.4 10^3/uL (1.7-8.2); BAND NEUTROPHILS % (MANUAL) 1 % (3-5); BASOPHILS % (MANUAL) 0 % (0-2); EOSINOPHILS % (MANUAL) 0 % (0-6); LYMPHOCYTES % (MANUAL) 4 % (13-45); METAMYELOCYTES % (MANUAL) 1 % (0); MONOCYTES % (MANUAL) 12 % (3-13); OVALOCYTES SLIGHT; PLATELET COMMENT ADEQUATE; POIKILOCYTOSIS SLIGHT; SCHISTOCYTES SLIGHT; SEGMENTED NEUTROPHILS % (MAN) 81 % (42-78); TOTAL CELLS COUNTED 100; TOXIC GRANULATION 1+; TOXIC VACUOLATION PRESENT
[2017-09-28] MEDS: METFORMIN HCL 500 MG TABLET PO SCH ×4 (08:41→21:36)
[2017-09-28] MEDS: NORMAL SALINE 1000 ML 1,000 ML IV PRN ×2 (08:42→18:16)
[2017-09-28] MEDS: ENOXAPARIN SODIUM INJ 40 MG/0.4 ML DISP.SYRIN SUBCUT SCH (10:27)
[2017-09-28] MEDS: ROFLUMILAST 500 MCG TABLET PO SCH (10:27)
[2017-09-28] MEDS: ASPIRIN 81 MG TABLET, CHEWABLE PO SCH (10:27)
[2017-09-28] MEDS: AMLODIPINE BESYLATE 10 MG TABLET PO SCH (10:28)
[2017-09-28] MEDS: BUDESONIDE/FORMOTEROL 160-4.5 MCG 60 PUFF/6 GM MDI IH SCH ×2 (10:28→21:34)
[2017-09-28] MEDS: CEFEPIME HCL 2 GM in DEXTROSE 5%-WATER 50 ML IV SCH ×2 (10:28→21:35)
--- NOTE | 2017-09-28 13:32 | PDOC PROGRESS REPORT ---
Subjective Progress Note for:: 09/28/17 Subjective:: Patient was seen by the bedside, still wheezing, short of breath, complaining of abdominal pain most likely due to muscle pain from the use of accessory muscles to breathe Reason For Visit: ACUTE COPD EXACERBATION,LEUCOCYTOSIS Physical Exam Vital Signs: Temp Pulse Resp BP Pulse Ox 97.7 F 78 28 H 136/67 H 93 09/28/17 11:07 09/28/17 12:00 09/28/17 12:00 09/28/17 11:07 09/28/17 12:00 Intake & Output 09/27/17 09/28/17 09/29/17 06:59 06:59 06:59 Intake Total 2514 4857 Balance 2514 4857 Weight 105.8 kg 108.1 kg Head exam: PRESENT: atraumatic, normocephalic Eye exam: PRESENT: PERRLA. ABSENT: scleral icterus Neck exam: PRESENT: full ROM Respiratory exam: PRESENT: wheezes Cardiovascular exam: PRESENT: RRR, +S1, +S2 Vascular exam: PRESENT: normal capillary refill GI/Abdominal exam: PRESENT: normal bowel sounds, soft Rectal exam: PRESENT: deferred Neurological exam: PRESENT: alert Psychiatric exam: PRESENT: appropriate affect, normal mood Skin exam: PRESENT: dry, intact, warm Results Laboratory Results: 09/28/17 06:44 09/28/17 06:44 09/28/17 09/28/17 06:44 06:44 WBC 10.1 RBC 4.31 L Hgb 13.6 Hct 40.2 MCV 93 MCH 31.5 MCHC 33.8 RDW 14.8 H Plt Count 255 Seg Neutrophils % Not Reportable Lymphocytes % Not Reportable Monocytes % Not Reportable Eosinophils % Not Reportable Basophils % Not Reportable Absolute Neutrophils Not Reportable Absolute Lymphocytes Not Reportable Absolute Monocytes Not Reportable Absolute Eosinophils Not Reportable Absolute Basophils Not Reportable Sodium 138.7 Potassium 4.0 Chloride 104 Carbon Dioxide 24 Anion Gap 11 BUN 23 H Creatinine 0.82 Est GFR ( Amer) > 60 Est GFR (Non-Af Amer) > 60 Glucose 181 H Calcium 9.1 Magnesium 2.1 09/25/17 09/25/17 09/26/17 21:20 21:20 02:50 Creatine Kinase 473 H 465 H CK-MB (CK-2) 1.90 01/09/26/17 09/26/17 02:50 09:03 09:03 Creatine Kinase 514 H CK-MB (CK-2) 3.94 7.02 H Impressions: Chest X-Ray 09/25/17 18:10 IMPRESSION: NO ACUTE RADIOGRAPHIC FINDING IN THE CHEST. Assessment & Plan - Diagnosis (1) Acute exacerbation of chronic obstructive airways disease Is this a current diagnosis for this admission?: Yes (2) Acute respiratory alkalosis Is this a current diagnosis for this admission?: Yes (3) Acute respiratory distress Is this a current diagnosis for this admission?: Yes (4) Type 2 diabetes mellitus Qualifiers: Diabetes mellitus complication status: without complication Diabetes mellitus snf insulin use: without termination clerk use Qualified Code(s): E11.9 - Type 2 diabetes mellitus without complications Is this a current diagnosis for this admission?: Yes - Plan Summary Plan Summary: Patient will continue the intravenous Solu-Medrol, bronchodilators, antibiotic
[2017-09-28] MEDS: LEVOFLOXACIN 750 MG/D5W RTU 750 MG/150 ML RTUPB IV SCH (21:33)
[2017-09-29] MEDS: IPRATROPIUM/ALBUTEROL 0.5-2.5 MG/3 ML AMPUL NEB SCH ×6 (00:30→20:11)
[2017-09-29] MEDS: METHYLPREDNISOLONE INJ 125 MG/2 ML SDV IV SCH ×3 (02:41→17:43)
[2017-09-29] MEDS: LANSOPRAZOLE 15 MG TAB.RAP.DR PO SCH (06:47)
[2017-09-29] MEDS: NORMAL SALINE 1000 ML 1,000 ML IV PRN ×2 (06:53→17:40)
[2017-09-29] MEDS: METFORMIN HCL 500 MG TABLET PO SCH ×4 (08:27→21:59)
[2017-09-29] MEDS: ENOXAPARIN SODIUM INJ 40 MG/0.4 ML DISP.SYRIN SUBCUT SCH (10:33)
[2017-09-29] MEDS: AMLODIPINE BESYLATE 10 MG TABLET PO SCH (10:34)
[2017-09-29] MEDS: ASPIRIN 81 MG TABLET, CHEWABLE PO SCH (10:34)
[2017-09-29] MEDS: ROFLUMILAST 500 MCG TABLET PO SCH (10:34)
[2017-09-29] MEDS: BUDESONIDE/FORMOTEROL 160-4.5 MCG 60 PUFF/6 GM MDI IH SCH ×2 (10:35→21:59)
[2017-09-29] MEDS: CEFEPIME HCL 2 GM in DEXTROSE 5%-WATER 50 ML IV SCH ×2 (10:40→22:43)
--- NOTE | 2017-09-29 16:51 | PDOC PROGRESS REPORT ---
Subjective Progress Note for:: 09/29/17 Subjective:: Patient was seen by the bedside, still wheezing, short of breath, Reason For Visit: ACUTE COPD EXACERBATION,LEUCOCYTOSIS Physical Exam Vital Signs: Temp Pulse Resp BP Pulse Ox 97.5 F 88 22 H 125/57 L 96 09/29/17 15:33 09/29/17 15:33 09/29/17 15:33 09/29/17 15:33 09/29/17 15:33 Intake & Output 09/28/17 09/29/17 09/30/17 06:59 06:59 06:59 Intake Total 4857 3811 Balance 4857 3811 Weight 108.1 kg 109.3 kg General appearance: PRESENT: no acute distress, well-developed, well-nourished Head exam: PRESENT: atraumatic, normocephalic Eye exam: PRESENT: conjunctiva pink, EOMI, PERRLA Ear exam: PRESENT: normal external ear exam Mouth exam: PRESENT: moist, tongue midline Neck exam: PRESENT: full ROM Respiratory exam: PRESENT: wheezes Cardiovascular exam: PRESENT: RRR, +S1, +S2 Pulses: PRESENT: normal dorsalis pedis pul, +2 pedal pulses bilateral Vascular exam: PRESENT: normal capillary refill GI/Abdominal exam: PRESENT: soft Rectal exam: PRESENT: deferred Neurological exam: PRESENT: alert Psychiatric exam: PRESENT: appropriate affect, normal mood Skin exam: PRESENT: dry, intact, warm Results Laboratory Results: 09/28/17 06:44 09/28/17 06:44 09/27/17 12:55 Sputum Gram Stain - Final 09/27/17 12:55 Sputum Sputum Culture - Final REDUCED NORMAL JOSE 09/25/17 09/25/17 09/26/17 21:20 21:20 02:50 Creatine Kinase 473 H 465 H CK-MB (CK-2) 1.90 09/26/17 09/26/17 09/26/17 02:50 09:03 09:03 Creatine Kinase 514 H CK-MB (CK-2) 3.94 7.02 H Impressions: Chest X-Ray 09/25/17 18:10 IMPRESSION: NO ACUTE RADIOGRAPHIC FINDING IN THE CHEST. Assessment & Plan - Diagnosis (1) Acute exacerbation of chronic obstructive airways disease Is this a current diagnosis for this admission?: Yes (2) Acute respiratory alkalosis Is this a current diagnosis for this admission?: Yes (3) Acute respiratory distress Is this a current diagnosis for this admission?: Yes (4) Type 2 diabetes mellitus Qualifiers: Diabetes mellitus complication status: without complication Diabetes mellitus predatory animal exterminator insulin use: without mcfp use Qualified Code(s): E11.9 - Type 2 diabetes mellitus without complications Is this a current diagnosis for this admission?: Yes
[2017-09-29] MEDS: LEVOFLOXACIN 750 MG/D5W RTU 750 MG/150 ML RTUPB IV SCH (20:55)
[2017-09-30] MEDS: IPRATROPIUM/ALBUTEROL 0.5-2.5 MG/3 ML AMPUL NEB SCH ×6 (00:41→20:23)
[2017-09-30] MEDS: METHYLPREDNISOLONE INJ 125 MG/2 ML SDV IV SCH ×3 (01:14→18:12)
[2017-09-30] MEDS: LANSOPRAZOLE 15 MG TAB.RAP.DR PO SCH (05:02)
[2017-09-30] MEDS: NORMAL SALINE 1000 ML 1,000 ML IV PRN (06:40)
[2017-09-30] MEDS: METFORMIN HCL 500 MG TABLET PO SCH ×4 (08:02→23:05)
[2017-09-30 09:10] LABS: HEMATOCRIT 43.1 % (37.9-51.0); HEMOGLOBIN 14.5 g/dL (13.5-17.0); MEAN CORPUSCULAR HEMOGLOBIN 31.2 pg (27.0-33.4); MEAN CORPUSCULAR HGB CONC 33.7 g/dL (32.0-36.0); MEAN CORPUSCULAR VOLUME 93 fl (80-97); PLATELET COUNT 291 10^3/uL (150-450); RED BLOOD COUNT 4.66 10^6/uL (4.35-5.55); RED CELL DISTRIBUTION WIDTH 14.9 % (11.5-14.0); WHITE BLOOD COUNT 13.1 10^3/uL (4.0-10.5)
[2017-09-30 09:32] LABS: ABSOLUTE LYMPHOCYTES# (MANUAL) 0.5 10^3/uL (0.5-4.7); ABSOLUTE MONOCYTES # (MANUAL) 0.9 10^3/uL (0.1-1.4); ABSOLUTE NEUTROPHILS# (MANUAL) 11.7 10^3/uL (1.7-8.2); BAND NEUTROPHILS % (MANUAL) 1 % (3-5); BASOPHILS % (MANUAL) 0 % (0-2); EOSINOPHILS % (MANUAL) 0 % (0-6); LYMPHOCYTES % (MANUAL) 4 % (13-45); MONOCYTES % (MANUAL) 7 % (3-13); SEGMENTED NEUTROPHILS % (MAN) 88 % (42-78); TOTAL CELLS COUNTED 100
[2017-09-30 09:33] LABS: ANISOCYTOSIS SLIGHT; PLATELET COMMENT ADEQUATE; TOXIC GRANULATION 1+
[2017-09-30 09:34] LABS: ALANINE AMINOTRANSFERASE 35 U/L (21-72); ALBUMIN 3.6 g/dL (3.5-5.0); ALKALINE PHOSPHATASE 37 U/L (38-126); ANION GAP 9 (5-19); ASPARTATE AMINO TRANSFERASE 27 U/L (17-59); BILIRUBIN,DIRECT 0.4 mg/dL (0.0-0.4); BILIRUBIN,TOTAL 0.5 mg/dL (0.2-1.3); BLOOD UREA NITROGEN 19 mg/dL (7-20); CARBON DIOXIDE 28 mmol/L (22-30); CHLORIDE 100 mmol/L (98-107); GLUCOSE 184 mg/dL (75-110); POTASSIUM 3.9 mmol/L (3.6-5.0); SODIUM 137.1 mmol/L (137-145); TOTAL PROTEIN 6.4 g/dL (6.3-8.2)
[2017-09-30] MEDS: BUDESONIDE/FORMOTEROL 160-4.5 MCG 60 PUFF/6 GM MDI IH SCH ×2 (10:00→23:06)
[2017-09-30] MEDS: ENOXAPARIN SODIUM INJ 40 MG/0.4 ML DISP.SYRIN SUBCUT SCH (10:00)
[2017-09-30] MEDS: ROFLUMILAST 500 MCG TABLET PO SCH (10:01)
[2017-09-30] MEDS: ASPIRIN 81 MG TABLET, CHEWABLE PO SCH (10:01)
[2017-09-30] MEDS: CEFEPIME HCL 2 GM in DEXTROSE 5%-WATER 50 ML IV SCH ×2 (10:01→23:06)
[2017-09-30] MEDS: AMLODIPINE BESYLATE 10 MG TABLET PO SCH (10:02)
[2017-09-30] MEDS: LEVOFLOXACIN 750 MG/D5W RTU 750 MG/150 ML RTUPB IV SCH (20:12)
--- NOTE | 2017-09-30 21:12 | PDOC PROGRESS REPORT ---
Subjective Progress Note for:: 09/30/17 Subjective:: Patient developed increased shortness of breath with tachypnea requiring noninvasive positive pressure ventilation, BiPAP Reason For Visit: ACUTE COPD EXACERBATION,LEUCOCYTOSIS Physical Exam Vital Signs: Temp Pulse Resp BP Pulse Ox 97.4 F 77 28 H 144/56 H 100 09/30/17 19:18 09/30/17 19:18 09/30/17 19:18 09/30/17 19:18 09/30/17 19:18 Intake & Output 09/29/17 09/30/17 10/01/17 06:59 06:59 06:59 Intake Total 3811 3637 1802 Balance 3811 3637 1802 Weight 109.3 kg 110 kg General appearance: PRESENT: severe distress Eye exam: PRESENT: PERRLA Respiratory exam: PRESENT: wheezes Cardiovascular exam: PRESENT: +S1, +S2 GI/Abdominal exam: PRESENT: soft Neurological exam: PRESENT: alert Results Laboratory Results: 09/30/17 08:31 09/30/17 08:31 09/30/17 09/30/17 08:31 08:31 WBC 13.1 H RBC 4.66 Hgb 14.5 Hct 43.1 MCV 93 MCH 31.2 MCHC 33.7 RDW 14.9 H Plt Count 291 Seg Neutrophils % Not Reportable Lymphocytes % Not Reportable Monocytes % Not Reportable Eosinophils % Not Reportable Basophils % Not Reportable Absolute Neutrophils Not Reportable Absolute Lymphocytes Not Reportable Absolute Monocytes Not Reportable Absolute Eosinophils Not Reportable Absolute Basophils Not Reportable Sodium 137.1 Potassium 3.9 Chloride 100 Carbon Dioxide 28 Anion Gap 9 BUN 19 Creatinine 0.73 Est GFR ( Amer) > 60 Est GFR (Non-Af Amer) > 60 Glucose 184 H Calcium 9.0 Total Bilirubin 0.5 AST 27 ALT 35 Alkaline Phosphatase 37 L Total Protein 6.4 Albumin 3.6 09/25/17 09/25/17 09/26/17 21:20 21:20 02:50 Creatine Kinase 473 H 465 H CK-MB (CK-2) 1.90 09/26/17 09/26/17 09/26/17 02:50 09:03 09:03 Creatine Kinase 514 H CK-MB (CK-2) 3.94 7.02 H Impressions: Chest X-Ray 09/25/17 18:10 IMPRESSION: NO ACUTE RADIOGRAPHIC FINDING IN THE CHEST. Assessment & Plan - Diagnosis (1) Acute exacerbation of chronic obstructive airways disease Is this a current diagnosis for this admission?: Yes Plan: Discontinue Solu-Medrol, start prednisone 60 mg p.o. daily (2) Acute respiratory alkalosis Is this a current diagnosis for this admission?: Yes (3) Acute respiratory distress Is this a current diagnosis for this admission?: Yes Plan: Patient requiring noninvasive positive pressure ventilation with BiPAP (4) Type 2 diabetes mellitus Qualifiers: Diabetes mellitus complication status: without complication Diabetes mellitus fpc insulin use: without fpc use Qualified Code(s): E11.9 - Type 2 diabetes mellitus without complications Is this a current diagnosis for this admission?: Yes
[2017-10-01] MEDS: IPRATROPIUM/ALBUTEROL 0.5-2.5 MG/3 ML AMPUL NEB SCH ×6 (00:33→20:27)
[2017-10-01] MEDS: LANSOPRAZOLE 15 MG TAB.RAP.DR PO SCH (05:22)
[2017-10-01] MEDS: METFORMIN HCL 500 MG TABLET PO SCH ×4 (08:09→21:29)
[2017-10-01] MEDS: ENOXAPARIN SODIUM INJ 40 MG/0.4 ML DISP.SYRIN SUBCUT SCH (09:45)
[2017-10-01] MEDS: BUDESONIDE/FORMOTEROL 160-4.5 MCG 60 PUFF/6 GM MDI IH SCH ×2 (09:45→21:29)
[2017-10-01] MEDS: AMLODIPINE BESYLATE 10 MG TABLET PO SCH (09:46)
[2017-10-01] MEDS: ROFLUMILAST 500 MCG TABLET PO SCH (09:47)
[2017-10-01] MEDS: ASPIRIN 81 MG TABLET, CHEWABLE PO SCH (09:47)
[2017-10-01] MEDS: PREDNISONE 20 MG TABLET PO SCH (09:47)
[2017-10-01] MEDS: CEFEPIME HCL 2 GM in DEXTROSE 5%-WATER 50 ML IV SCH ×2 (09:48→22:50)
[2017-10-01] MEDS: LEVOFLOXACIN 750 MG/D5W RTU 750 MG/150 ML RTUPB IV SCH (20:23)
--- NOTE | 2017-10-01 22:25 | PDOC PROGRESS REPORT ---
Subjective Progress Note for:: 10/01/17 Subjective:: Patient seen by the bedside, and continues to improve hopefully discharge home tomorrow Reason For Visit: ACUTE COPD EXACERBATION,LEUCOCYTOSIS Physical Exam Vital Signs: Temp Pulse Resp BP Pulse Ox 97.7 F 76 17 123/63 94 10/01/17 15:53 10/01/17 20:27 10/01/17 20:27 10/01/17 15:53 10/01/17 20:27 Intake & Output 09/30/17 10/01/17 10/02/17 06:59 06:59 06:59 Intake Total 3637 3278 989 Balance 3637 3278 989 Weight 110 kg 110.1 kg General appearance: PRESENT: no acute distress Eye exam: PRESENT: PERRLA Respiratory exam: PRESENT: rhonchi Cardiovascular exam: PRESENT: +S1, +S2 GI/Abdominal exam: PRESENT: soft Neurological exam: PRESENT: alert, CN II-XII grossly intact Results Laboratory Results: 09/30/17 08:31 09/30/17 08:31 09/25/17 09/25/17 09/26/17 21:20 21:20 02:50 Creatine Kinase 473 H 465 H CK-MB (CK-2) 1.90 09/26/17 09/26/17 09/26/17 02:50 09:03 09:03 Creatine Kinase 514 H CK-MB (CK-2) 3.94 7.02 H Impressions: Chest X-Ray 09/25/17 18:10 IMPRESSION: NO ACUTE RADIOGRAPHIC FINDING IN THE CHEST. Assessment & Plan - Diagnosis (1) Acute exacerbation of chronic obstructive airways disease Is this a current diagnosis for this admission?: Yes (2) Acute respiratory alkalosis Is this a current diagnosis for this admission?: Yes (3) Acute respiratory distress Is this a current diagnosis for this admission?: Yes (4) Type 2 diabetes mellitus Qualifiers: Diabetes mellitus complication status: without complication Diabetes mellitus terminal system operator insulin use: without mcc use Qualified Code(s): E11.9 - Type 2 diabetes mellitus without complications Is this a current diagnosis for this admission?: Yes
[2017-10-02] MEDS: IPRATROPIUM/ALBUTEROL 0.5-2.5 MG/3 ML AMPUL NEB SCH ×5 (00:30→17:16)
[2017-10-02 05:03] LABS: HEMATOCRIT 41.6 % (37.9-51.0); HEMOGLOBIN 14.2 g/dL (13.5-17.0); MEAN CORPUSCULAR HEMOGLOBIN 31.5 pg (27.0-33.4); MEAN CORPUSCULAR HGB CONC 34.3 g/dL (32.0-36.0); MEAN CORPUSCULAR VOLUME 92 fl (80-97); PLATELET COUNT 256 10^3/uL (150-450); RED BLOOD COUNT 4.52 10^6/uL (4.35-5.55); RED CELL DISTRIBUTION WIDTH 14.3 % (11.5-14.0); WHITE BLOOD COUNT 8.4 10^3/uL (4.0-10.5)
[2017-10-02] MEDS: LANSOPRAZOLE 15 MG TAB.RAP.DR PO SCH (05:09)
[2017-10-02 05:24] LABS: BLOOD UREA NITROGEN 22 mg/dL (7-20); CALCIUM 8.8 mg/dL (8.4-10.2); GLUCOSE 101 mg/dL (75-110)
[2017-10-02 05:25] LABS: ANION GAP 7 (5-19); CARBON DIOXIDE 30 mmol/L (22-30); CHLORIDE 101 mmol/L (98-107); POTASSIUM 3.5 mmol/L (3.6-5.0)
[2017-10-02] MEDS: METFORMIN HCL 500 MG TABLET PO SCH ×3 (08:52→16:33)
[2017-10-02] MEDS: CEFEPIME HCL 2 GM in DEXTROSE 5%-WATER 50 ML IV SCH (10:02)
[2017-10-02] MEDS: ENOXAPARIN SODIUM INJ 40 MG/0.4 ML DISP.SYRIN SUBCUT SCH (10:02)
[2017-10-02] MEDS: PREDNISONE 20 MG TABLET PO SCH (10:03)
[2017-10-02] MEDS: ASPIRIN 81 MG TABLET, CHEWABLE PO SCH (10:03)
[2017-10-02] MEDS: ROFLUMILAST 500 MCG TABLET PO SCH (10:03)
[2017-10-02] MEDS: AMLODIPINE BESYLATE 10 MG TABLET PO SCH (10:04)
[2017-10-02] MEDS: BUDESONIDE/FORMOTEROL 160-4.5 MCG 60 PUFF/6 GM MDI IH SCH (10:04)
--- NOTE | 2017-10-02 14:58 | PDOC DISCHARGE SUMMARY ---
General - Admit/Disc Date/PCP Admission Date/Primary Care Provider: 09/25/17 18:14 ZAIRE MILTON MD Discharge Date: 10/02/17 - Discharge Diagnosis (1) Acute exacerbation of chronic obstructive airways disease Is this a current diagnosis for this admission?: Yes (2) Acute respiratory alkalosis Is this a current diagnosis for this admission?: Yes (3) Acute respiratory distress Is this a current diagnosis for this admission?: Yes (4) Type 2 diabetes mellitus Is this a current diagnosis for this admission?: Yes - Additional Information Resuscitation Status: Full Code Prescriptions: Levofloxacin [Levaquin 750 mg Tablet] 750 mg PO DAILY #5 tablet Prednisone [Deltasone 20 mg Tablet] 40 mg PO DAILY #10 tablet Home Medications: Albuterol Sulfate [Proair HFA Inhalation Aerosol 8.5 gm MDI] 2 puff IH Q6HP PRN 09/25/17 Amlodipine Besylate [Norvasc 10 mg Tablet] 10 mg PO DAILY 09/25/17 Aspirin [Aspirin 81 mg Chewable Tablet] 81 mg PO DAILY 09/25/17 Budesonide/Formoterol Fumarate [Symbicort 160-4.5 Mcg Inhaler] 2 puff IH Q12 Ipratropium/Albuterol Sulfate [Duoneb 3 ml Ampul] 3 ml NEB RTQ4 09/25/17 Metformin HCl [Metformin HCl ER] 500 mg PO Q12 09/25/17 Omeprazole 20 mg PO DAILY 09/25/17 Roflumilast [Daliresp 500 mcg Tablet] 500 mcg PO DAILY 09/25/17 Levofloxacin [Levaquin 750 mg Tablet] 750 mg PO DAILY #5 tablet 10/02/17 Prednisone [Deltasone 20 mg Tablet] 40 mg PO DAILY #10 tablet 10/02/17 History of Present Illness History of Present Illness: ANDRE BATES is a 72 year old male, He has a history of chronic obstructive pulmonary disease type 2 diabetes mellitus ,he developed progressive shortness of breath in the last few days, he called the rescue squad to his residence, he was transferred from his residence to the emergency room for evaluation of his symptoms he was treated with bronchodilators, IV Solu -Medrol en-route to the emergency room. he was evaluated in the emergency room , ABG was done on FiO2 of 2 L, pH 7.530, PCO2 20.2, PO2 65.9, bicarbonate 22.9. The chest x-ray did not show an acute pathology. He was treated in the emergency room without improvement of his symptoms because of impending acute respiratory failure hospital admission was advised Hospital Course Hospital Course: Patient was admitted for the management of acute COPD exacerbation associated with respiratory alkalosis, he was treated with IV Solu-Medrol bronchodilator and IV antibiotic. Patient improved significantly with treatment Physical Exam Vital Signs: Temp Pulse Resp BP Pulse Ox 97.6 F 61 16 145/64 H 98 10/02/17 07:33 10/02/17 11:24 10/02/17 11:24 10/02/17 11:02 10/02/17 11:02 Intake & Output 10/01/17 10/02/17 10/03/17 06:59 06:59 06:59 Intake Total 3278 1376 575 Balance 3278 1376 575 Weight 110.1 kg 104.7 kg General appearance: PRESENT: no acute distress, well-developed, well-nourished Head exam: PRESENT: atraumatic, normocephalic Eye exam: PRESENT: conjunctiva pink, EOMI, PERRLA Ear exam: PRESENT: normal external ear exam Mouth exam: PRESENT: moist, tongue midline Neck exam: PRESENT: full ROM Respiratory exam: PRESENT: clear to auscultation booker Cardiovascular exam: PRESENT: RRR Pulses: PRESENT: normal dorsalis pedis pul, +2 pedal pulses bilateral Vascular exam: PRESENT: normal capillary refill GI/Abdominal exam: PRESENT: normal bowel sounds, soft Rectal exam: PRESENT: deferred Neurological exam: PRESENT: alert, awake, oriented to person, oriented to place , oriented to time, oriented to situation, CN II-XII grossly intact Psychiatric exam: PRESENT: appropriate affect, normal mood Skin exam: PRESENT: dry, intact, warm Results Laboratory Results: 10/02/17 04:48 10/02/17 04:48 10/02/17 10/02/17 04:48 04:48 WBC 8.4 RBC 4.52 Hgb 14.2 Hct 41.6 MCV 92 MCH 31.5 MCHC 34.3 RDW 14.3 H Plt Count 256 Sodium 138.0 Potassium 3.5 L Chloride 101 Carbon Dioxide 30 Anion Gap 7 BUN 22 H Creatinine 0.70 Est GFR ( Amer) > 60 Est GFR (Non-Af Amer) > 60 Glucose 101 Calcium 8.8 09/25/17 09/25/17 09/26/17 21:20 21:20 02:50 Creatine Kinase 473 H 465 H CK-MB (CK-2) 1.90 09/26/17 09/26/17 09/26/17 02:50 09:03 09:03 Creatine Kinase 514 H CK-MB (CK-2) 3.94 7.02 H Impressions: Chest X-Ray 09/25/17 18:10 IMPRESSION: NO ACUTE RADIOGRAPHIC FINDING IN THE CHEST.
[2017-10-02 15:43] VITALS: BP 149/61
== END 2017-10-02 18:10 | disposition home or self-care (01) | DRG 190 ==
LOC: ER 15:47 → UNDOADMIN 18:14 → EH 18:14 → 3W 09-26 05:51
PROVIDERS: ADMIT Internal Medicine; ATTEND Internal Medicine
PROC: 5A09457 Assistance with Respiratory Ventilation, 24-96 Consecutive Hours, Continuous Positive Airway Pressure (ICD-10-PCS; principal; 2017-09-26)
DX: J44.1 Chronic obstructive pulmonary disease with (acute) exacerbation (principal); J96.00 Acute respiratory failure, unspecified whether with hypoxia or hypercapnia; E87.3 Alkalosis; E11.9 Type 2 diabetes mellitus without complications; I10 Essential (primary) hypertension; K21.9 Gastro-esophageal reflux disease without esophagitis; D72.829 Elevated white blood cell count, unspecified; M19.90 Unspecified osteoarthritis, unspecified site; Z86.14 Personal history of Methicillin resistant Staphylococcus aureus infection; Z87.891 Personal history of nicotine dependence; Z79.82 Long term (current) use of aspirin; Z79.84 Long term (current) use of oral hypoglycemic drugs; Z79.899 Other long term (current) drug therapy; Z82.49 Family history of ischemic heart disease and other diseases of the circulatory system; Z82.61 Family history of arthritis; Z82.3 Family history of stroke
CPT/HCPCS: 36415; 71045; 80048; 80053; 80307; 81001; 82140; 82150; 82550; 82553; 82803; 82962; 83605; 83690; 83735; 83880; 84439; 84443; 84484; 85025; 85027; 85610; 87040; 87070; 87077; 87186; 87205; 93005; 93010; 94640; 94660; 96365; 99291; J0456; J0692; J0696; J1650; J1956; J2930; J3490; J7030; J7512; J7620

== ENCOUNTER 2018-06-20 13:33 | Inpatient (IN) | payer MEDICARE, MEDICAID ==
--- NOTE | 2018-06-20 13:54 | ER Document Report ---
ED Respiratory Problem - General Chief Complaint: Shortness Of Breath Stated Complaint: SHORTNESS OF BREATH Time Seen by Provider: 06/20/18 13:53 Notes: Patient is here because of difficulty breathing and shortness of breath this morning. He has a history of asthma and COPD for which she has flareups every 3 -4 months. He has a home nebulizer in which he uses DuoNeb and has done 3 of these nebulizer treatments at home this morning before calling EMS. He received another neb treatment with albuterol by EMS. EMS also gave him 125 mg of Solu-Medrol IM. Patient says he feels a little better since the was picked up by EMS. He says he has had a cough for the past 2-3 days. This cough has been productive of yellow phlegm. He did have some tightness in the front of his chest earlier, but is not there now. Has not had any fever. Patient has not smoked cigarettes in 16 years. PMH: No history of any heart disease. No history of CHF. Has NIDDM, HTN, left inguinal hernia repair. TRAVEL OUTSIDE OF THE [place] IN LAST 30 DAYS: No - Related Data Allergies/Adverse Reactions: No Known Allergies Allergy (Verified 11/09/16 09:27) Past Medical History - Social History Smoking Status: Former Smoker Family History: Reviewed & Not Pertinent, Arthritis, CVA, DM, Hypertension, Thyroid Disfunction - Past Medical History Cardiac Medical History: Reports: Hx Hypercholesterolemia, Hx Hypertension Pulmonary Medical History: Reports: Hx Asthma, Hx COPD Endocrine Medical History: Reports: Hx Diabetes Mellitus Type 2 GI Medical History: Reports: Hx Gastroesophageal Reflux Disease, Hx Colonoscopy Musculoskeletal Medical History: Reports Hx Arthritis Skin Medical History: Reports Hx MRSA Infectious Medical History: Reports: Hx MRSA Past Surgical History: Reports: Hx Genitourinary Surgery - SCRUTAL FLUID DRAINED , Hx Herniorrhaphy - Left, Hx Inguinal Hernia - Immunizations Hx Diphtheria, Pertussis, Tetanus Vaccination: Yes Hx Pneumococcal Vaccination: 09/02/11 Review of Systems - Review of Systems Notes: REVIEW OF SYSTEMS: CONSTITUTIONAL : Denies fever. EENT: Denies eye, ear, nose or mouth or throat pain or other symptoms. CARDIOVASCULAR: Some anterior tightness this morning, but none they are now. No pain, swelling, of lower extremities. No edema of the lower extremities. Respiratory: See HPI. GASTROINTESTINAL: Denies abdominal pain or nausea, vomiting, or diarrhea. GENITOURINARY: Denies difficulty or painful urinating, urinary frequency, blood in urine. MUSCULOSKELETAL: Denies back or neck pain. Denies joint pain or swelling. SKIN: Denies rash or skin lesions. NEUROLOGICAL: Denies LOC or altered mental status. Denies headache. Denies sensory loss or motor deficits. ALL OTHER SYSTEMS REVIEWED AND NEGATIVE. Physical Exam - Vital signs Vitals: Temp 97.9 F 06/20/18 13:40 Interpretation: Tachycardic, Tachypneic. No: Hypoxic, Febrile - Notes Notes: PHYSICAL EXAMINATION: GENERAL: Awake, alert, and oriented x3. Slight tachypnea. Can carry on a conversation without difficulty. Slight tachycardia HEAD: Atraumatic, normocephalic. EYES: Pupils equal round and reactive to light, extraocular movements intact. ENT: oropharynx clear without exudates. Moist mucous membranes. NECK: Normal range of motion, supple. LUNGS: Diffuse expiratory wheezes bilaterally, both anteriorly and posteriorly. HEART: Regular rate and rhythm without murmurs. Heart rate about 115. ABDOMEN: Soft, nontender. No guarding or rebound. No masses. BACK: No tenderness throughout entire back. EXTREMITIES: Normal range of motion without pain. No edema. Negative Homans bilaterally. No swelling, pain, etc. suggestive of DVT. NEUROLOGICAL: Normal speech, normal gait. Normal sensory, motor, and reflex exams. Awake, alert, and oriented x3. PSYCH: Normal mood, normal affect. SKIN: Warm, dry, no rashes. Course - Re-evaluation Re-evalutation: 06/20/18 16:03 Breathing a little better. Just fine expiratory wheezes present now. Heart rate down to about 100 so I am going to give him another nebulizer treatment with DuoNeb. 06/20/18 16:[address] Milton who will admit the patient for inpatient care. - Vital Signs Vital signs: Temp Pulse Resp BP Pulse Ox 97.9 F 94 06/20/18 13:40 06/20/18 13:51 - Laboratory Result Diagrams: 06/20/18 13:40 06/20/18 13:40 Laboratory results interpreted by me: 06/20/18 06/20/18 06/20/18 13:40 13:40 13:40 RDW 14.3 H Monocytes % 15.8 H VBG pH VBG pCO2 Carbon Dioxide 21 L AST 71 H Creatine Kinase 265 H CK-MB (CK-2) 4.62 H 06/20/18 13:40 RDW Monocytes % VBG pH 7.43 H VBG pCO2 34.3 L Carbon Dioxide AST Creatine Kinase CK-MB (CK-2) - Diagnostic Test Radiology results interpreted by me: 06/20/18 16:05 Chest x-ray without acute findings; normal. - EKG Interpretation by Me EKG shows normal: Sinus rhythm Rate: Tachycardia [place]/QRS: LAHB/LAFB Discharge - Discharge Clinical Impression: COPD exacerbation, Asthma Condition: Stable Disposition: ADMITTED OBSERVATION Admitting Provider: Yoel Unit Admitted: Telemetry Referrals: ZAIRE MILTON MD [Primary Care Provider] - Follow up as needed
[2018-06-20 14:09] LABS: ABSOLUTE BASOPHILS # (AUTO) 0.1 10^3/uL (0.0-0.2); ABSOLUTE EOSINOPHILS # (AUTO) 0.2 10^3/uL (0.0-0.6); ABSOLUTE LYMPHOCYTES (AUTO) 1.5 10^3/uL (0.5-4.7); ABSOLUTE MONOCYTES (AUTO) 1.3 10^3/uL (0.1-1.4); BASOPHILS % (AUTO) 0.8 % (0-2); EOSINOPHILS % (AUTO) 2.2 % (0-6); HEMATOCRIT 46.8 % (37.9-51.0); HEMOGLOBIN 16.2 g/dL (13.5-17.0); LYMPHOCYTES % (AUTO) 18.6 % (13-45); MEAN CORPUSCULAR HEMOGLOBIN 32.9 pg (27.0-33.4); MEAN CORPUSCULAR HGB CONC 34.7 g/dL (32.0-36.0); MEAN CORPUSCULAR VOLUME 95 fl (80-97); MONOCYTES % (AUTO) 15.8 % (3-13); PLATELET COUNT 245 10^3/uL (150-450); RED BLOOD COUNT 4.93 10^6/uL (4.35-5.55); RED CELL DISTRIBUTION WIDTH 14.3 % (11.5-14.0); SEGMENTED NEUTROPHILS % (AUTO) 62.6 % (42-78); TOTAL CELLS COUNTED % (AUTO) 100 %
[2018-06-20 14:11] LABS: VENOUS BLOOD BASE EXCESS -1.1 mmol/L; VENOUS BLOOD HCO3 22.4 mmol/L (20-32); VENOUS BLOOD PCO2 34.3 mmHg (35-63); VENOUS BLOOD PH 7.43 (7.30-7.42)
[2018-06-20] MEDS ORDERED: METHYLPREDNISOLONE INJ 125 MG/2 ML SDV IV ONE (14:15)
[2018-06-20 14:18] LABS: ALANINE AMINOTRANSFERASE 51 U/L (21-72); ALBUMIN 4.4 g/dL (3.5-5.0); ALKALINE PHOSPHATASE 60 U/L (38-126); ANION GAP 15 (5-19); ASPARTATE AMINO TRANSFERASE 71 U/L (17-59); BILIRUBIN,DIRECT 0.4 mg/dL (0.0-0.4); BILIRUBIN,TOTAL 0.9 mg/dL (0.2-1.3); BLOOD UREA NITROGEN 13 mg/dL (7-20); CALCIUM 9.2 mg/dL (8.4-10.2); CARBON DIOXIDE 21 mmol/L (22-30); CHLORIDE 103 mmol/L (98-107); CREATINE KINASE 265 U/L (55-170); GLUCOSE 106 mg/dL (75-110); POTASSIUM 4.4 mmol/L (3.6-5.0); SODIUM 138.9 mmol/L (137-145); TOTAL PROTEIN 7.8 g/dL (6.3-8.2)
[2018-06-20 14:27] LABS: CREATINE KINASE MB 4.62 ng/mL (<4.55)
[2018-06-20 14:31] LABS: TROPONIN I < 0.012 ng/mL
[2018-06-20] MEDS: MAGNESIUM SULFATE/D5W 1 GM/100 ML RTUPB IV SCH ×2 (14:40→15:23)
--- NOTE | 2018-06-20 14:48 | RADIOLOGY REPORT (SQ) ---
EXAM DESCRIPTION: CHEST SINGLE VIEW COMPLETED DATE/TIME: 06/20/2018 2:31 pm REASON FOR STUDY: sob COMPARISON: 04/08/2016. EXAM PARAMETERS: NUMBER OF VIEWS: One view. TECHNIQUE: Single frontal radiographic view of the chest acquired. RADIATION DOSE: NA LIMITATIONS: None. FINDINGS: LUNGS AND PLEURA: No opacities, masses or pneumothorax. No pleural effusion. MEDIASTINUM AND HILAR STRUCTURES: No masses. Contour normal. HEART AND VASCULAR STRUCTURES: Heart normal in size. Normal vasculature. BONES: No acute findings. HARDWARE: None in the chest. OTHER: No other significant finding. IMPRESSION: NO ACUTE RADIOGRAPHIC FINDING IN THE CHEST. TECHNICAL DOCUMENTATION: JOB ID: [id number]- All Rights Reserved Reading location - IP/workstation name: [email or web address]
[2018-06-20] MEDS ORDERED: IPRATROPIUM/ALBUTEROL 0.5-2.5 MG/3 ML AMPUL NEB ONE (15:27)
[2018-06-20 17:03] LABS: APPEARANCE,URINE SLIGHTLY-CLOUDY; BILIRUBIN,URINE NEGATIVE (NEGATIVE); COLOR,URINE YELLOW; GLUCOSE, URINE NEGATIVE (NEGATIVE); KETONES,URINE 20 mg/dL (NEGATIVE); LEUKOCYTE ESTERASE,URINE NEGATIVE (NEGATIVE); NITRITE,URINE NEGATIVE (NEGATIVE); PROTEIN,URINE NEGATIVE (NEGATIVE); URINE SPECIFIC GRAVITY 1.015
[2018-06-20] MEDS ORDERED: GLUCAGON,HUMAN RECOMB 1 MG INJ IM PRN (18:08)
[2018-06-20] MEDS ORDERED: DEXTROSE 50%-WATER 25 GM/50 ML DISP.SYRIN IV PRN ×2 (18:08)
[2018-06-20] MEDS ORDERED: DEXTROSE 40% GEL 15 GM TUBE PO PRN ×2 (18:08)
[2018-06-20 19:02] LABS: LIPASE 103.6 U/L (23-300); PHOSPHORUS 2.7 mg/dL (2.5-4.5)
[2018-06-20 19:06] LABS: ARTERIAL BLOOD BASE EXCESS 1.3 mmol/L; ARTERIAL BLOOD H2CO3 0.95 mmol/L (1.05-1.35); ARTERIAL BLOOD HCO3 23.5 mmol/L (20-24); ARTERIAL BLOOD O2 SATURATION 95.7 % (94-98); ARTERIAL BLOOD PCO2 31.6 mmHg (35-45); ARTERIAL BLOOD PH 7.49 (7.35-7.45); ARTERIAL BLOOD PO2 71.5 mmHg (80-100); ARTERIAL BLOOD TOTAL CO2 24.5 mmol/L (23-27)
[2018-06-20 19:07] LABS: ARTERIAL BLOOD FIO2 20%
[2018-06-20 19:19] LABS: FREE T4 (FREE THYROXINE) 0.68 ng/dL (0.78-2.19)
--- NOTE | 2018-06-20 19:27 | EKG REPORT ---
SEVERITY:- ABNORMAL ECG - SINUS TACHYCARDIA LEFT ANTERIOR FASCICULAR BLOCK CONSIDER ANTERIOR INFARCT : Confirmed by: Harrison Jin MD 20-Jun-2018 19:26:16
[2018-06-20 19:33] LABS: THYROID STIMULATING HORMONE 2.66 uIU/mL (0.47-4.68)
[2018-06-20 19:50] LABS: CREATINE KINASE MB 3.77 ng/mL (<4.55)
[2018-06-20 19:52] LABS: TROPONIN I < 0.012 ng/mL
[2018-06-20 20:15] LABS: APPEARANCE,URINE SLIGHTLY-CLOUDY; BILIRUBIN,URINE NEGATIVE (NEGATIVE); COLOR,URINE YELLOW; GLUCOSE, URINE NEGATIVE (NEGATIVE); KETONES,URINE 20 mg/dL (NEGATIVE); LEUKOCYTE ESTERASE,URINE NEGATIVE (NEGATIVE); NITRITE,URINE NEGATIVE (NEGATIVE); PROTEIN,URINE NEGATIVE (NEGATIVE); URINE SPECIFIC GRAVITY 1.012; UROBILINOGEN,URINE NEGATIVE mg/dL (<2.0)
[2018-06-20] MEDS: IPRATROPIUM/ALBUTEROL 0.5-2.5 MG/3 ML AMPUL NEB SCH ×2 (20:21→22:56)
--- NOTE | 2018-06-20 20:25 | PDOC H&P ---
History of Present Illness Admission Date/PCP: 06/20/18 16:26 ZAIRE MILTON MD History of Present Illness: ANDRE BATES is a 72 year old male, He has a history of chronic obstructive pulmonary disease, type 2 diabetes mellitus, he came to the emergency room for evaluation of respiratory distress. In the emergency room he was managed with bronchodilators, IV Solu-Medrol, despite the intervention in the emergency room patient continues to be in distress, with shortness of breath, audible wheeze and also he was in a state of impending respiratory failure the ED physician felt that patient needed to be admitted into the hospital for continued management ,it was unsafe to discharge him home because of the impending respiratory failure. The ABG on FiO2,20%, pH 7.49, PCO2 31.6 , PO2 71.5 bicarbonate 23.5 I saw him on the floor, he was audibly wheezing, struggling to breathe, there was flarring of the nasal nares Past Medical History Cardiac Medical History: Reports: Hyperlipidema, Hypertension Pulmonary Medical History: Reports: Asthma, Chronic Obstructive Pulmonary Disease (COPD) Endocrine Medical History: Reports: Diabetes Mellitus Type 2 GI Medical History: Reports: Gastroesophageal Reflux Disease Musculoskeltal Medical History: Reports: Arthritis Infectious Medical History: Reports: Methicillin-Resistant Staph Aureus Past Surgical History Past Surgical History: Reports: Herniorrhaphy - Left Social History Smoking Status: Former Smoker Cigarettes Packs Per Day: 2 Cigars Per Day: 0 Pipes Per Day: 0 Number of Years Smokin Last Time Smoked: 09/02/2002 Frequency of Alcohol Use: Occasional Hx Recreational Drug Use: No Drugs: None Hx Prescription Drug Abuse: No - Advance Directive Resuscitation Status: Full Code Family History Family History: Reviewed & Not Pertinent, Arthritis, CVA, DM, Hypertension, Thyroid Disfunction Parental Family History Reviewed: Yes Children Family History Reviewed: Yes Sibling(s) Family History Reviewed.: Yes Medication/Allergy Home Medications: Amlodipine Besylate [Norvasc 10 mg Tablet] 10 mg PO DAILY 06/20/18 Aspirin [Aspirin 81 mg Chewable Tablet] 81 mg PO DAILY 06/20/18 Ipratropium/Albuterol Sulfate [Duoneb 3 ml Ampul] 3 ml NEB RTQ4 06/20/18 Metformin HCl [Glucophage 500 mg Tablet] 500 mg PO BID 06/20/18 Pantoprazole Sodium [Protonix] 40 mg PO DAILY 06/20/18 Roflumilast [Daliresp 500 mcg Tablet] 500 mcg PO DAILY 06/20/18 Allergies/Adverse Reactions: No Known Allergies Allergy (Verified 06/20/18 19:19) Review of Systems Constitutional: PRESENT: headache(s) Eyes: ABSENT: visual disturbances Ears: ABSENT: hearing changes Cardiovascular: PRESENT: dyspnea on exertion, orthropnea, palpitations Respiratory: PRESENT: cough, dyspnea Gastrointestinal: ABSENT: abdominal pain, constipation, diarrhea, hematemesis, hematochezia, nausea, vomiting Genitourinary: ABSENT: dysuria, hematuria Musculoskeletal: ABSENT: joint swelling Integumentary: ABSENT: rash, wounds Neurological: ABSENT: abnormal gait, abnormal speech, confusion, dizziness, focal weakness, syncope Psychiatric: ABSENT: anxiety, depression, homidical ideation, suicidal ideation Endocrine: ABSENT: cold intolerance, heat intolerance, menstrual abnormalities, polydipsia, polyuria Hematologic/Lymphatic: ABSENT: easy bleeding, easy bruising, lymphadenopathy Physical Exam Vital Signs: Temp Pulse Resp BP Pulse Ox 97.6 F 111 H 19 140/109 H 94 06/20/18 17:35 06/20/18 17:35 06/20/18 17:35 06/20/18 17:35 06/20/18 17:35 Intake & Output 06/19/18 06/20/18 06/21/18 06:59 06:59 06:59 Weight 103.3 kg General appearance: PRESENT: severe distress Head exam: PRESENT: atraumatic, normocephalic Eye exam: PRESENT: PERRLA Neck exam: PRESENT: full ROM Respiratory exam: PRESENT: rales, wheezes Cardiovascular exam: PRESENT: RRR, +S1, +S2 Pulses: PRESENT: normal dorsalis pedis pul, +2 pedal pulses bilateral Vascular exam: PRESENT: normal capillary refill GI/Abdominal exam: PRESENT: normal bowel sounds, soft Rectal exam: PRESENT: deferred Neurological exam: PRESENT: alert, awake, oriented to person, oriented to place , oriented to time, oriented to situation, CN II-XII grossly intact Psychiatric exam: PRESENT: appropriate affect, normal mood Skin exam: PRESENT: dry, intact, warm Results Laboratory Results: 06/20/18 06/20/18 06/20/18 16:35 18:35 18:35 Carbonic Acid HCO3/H2CO3 Ratio ABG pH ABG pCO2 ABG pO2 ABG HCO3 ABG O2 Saturation ABG Base Excess FiO2 Phosphorus 2.7 Magnesium 2.5 H Ammonia < 8.7 L Amylase 47 Lipase 103.6 TSH Free T4 Urine Color YELLOW Urine Appearance SLIGHTLY-CLOUDY Urine pH 5.0 Ur Specific [place] 1.015 Urine Protein NEGATIVE Urine Glucose (UA) NEGATIVE Urine Ketones 20 H Urine Blood NEGATIVE Urine Nitrite NEGATIVE Ur Leukocyte Esterase NEGATIVE Urine WBC (Auto) 1 Urine RBC (Auto) 1 06/20/18 06/20/18 18:35 18:40 Carbonic Acid 0.95 L HCO3/H2CO3 Ratio 24:1 ABG pH 7.49 H ABG pCO2 31.6 L ABG pO2 71.5 L ABG HCO3 23.5 ABG O2 Saturation 95.7 ABG Base Excess 1.3 FiO2 20% Phosphorus Magnesium Ammonia Amylase Lipase TSH 2.66 Free T4 0.68 L Urine Color Urine Appearance Urine pH Ur Specific [place] Urine Protein Urine Glucose (UA) Urine Ketones Urine Blood Urine Nitrite Ur Leukocyte Esterase Urine WBC (Auto) Urine RBC (Auto) 06/20/18 06/20/18 06/20/18 18:35 18:35 18:35 Creatine Kinase 261 H CK-MB (CK-2) 3.77 Troponin I < 0.012 NT-Pro-B Natriuret Pep 60 Impressions: Chest X-Ray 06/20/18 13:46 IMPRESSION: NO ACUTE RADIOGRAPHIC FINDING IN THE CHEST. Assessment & Plan - Diagnosis (1) Acute exacerbation of chronic obstructive airways disease Is this a current diagnosis for this admission?: Yes Plan: Patient present with acute respiratory distress due to COPD exacerbation, he will will be treated with IV Solu-Medrol, bronchodilators with DuoNeb (2) Acute hypoxemic respiratory failure Is this a current diagnosis for this admission?: Yes
--- NOTE | 2018-06-20 20:39 | RADIOLOGY REPORT (SQ) ---
EXAM DESCRIPTION: CT CHEST WITHOUT COMPLETED DATE/TIME: 06/20/2018 8:17 pm REASON FOR STUDY: pneumonia E11.42 TYPE 2 DIABETES MELLITUS WITH DIABETIC POLYNEUROPATHY I50.23 A CUTE ON CHRONIC SYSTOLIC (CONGESTIVE) HEART FAILURE N39.0 URINARY TRACT INFECTION, SITE NOT SPECIFIE D COMPARISON: None. TECHNIQUE: CT scan performed of the chest without intravenous contrast. Images reviewed with lung, soft tissue and bone windows. Reconstructed coronal and sagittal MPR images reviewed. All images st ored on PACS. All CT scanners at this facility use dose modulation, iterative reconstruction, and/or weight based d osing when appropriate to reduce radiation dose to as low as reasonably achievable (ALARA). [facility]: Dose Right [facility]: CareDose [facility]: Dose Right [facility]: Teradose 4D [facility]: [email or web address] RADIATION DOSE: CT Rad equipment meets quality standard of care and radiation dose reduction techniq ues were employed. CTDIvol: 17.7 mGy. DLP: 792 mGy-cm. mGy. LIMITATIONS: No technical limitations. FINDINGS: LUNGS AND PLEURA: Scarring at the bases. HILAR AND MEDIASTINAL STRUCTURES: No identified masses or abnormal nodes. No obvious aneurysm. HEART AND VASCULAR STRUCTURES: Extensive coronary artery calcification. UPPER ABDOMEN: Gallstones. THYROID AND OTHER SOFT TISSUES: No masses. No adenopathy. BONES: No significant finding. HARDWARE: None in the chest. OTHER: No other significant findings. IMPRESSION: Coronary artery calcification. Gallstones. TECHNICAL DOCUMENTATION: JOB ID: [id number] Quality ID # [id number]: Final reports with documentation of one or more dose reduction techniques (e.g., Au tomated exposure control, adjustment of the mA and/or kV according to patient size, use of iterative reconstruction technique) 2010 [employer]- All Rights Reserved Reading location - IP/workstation name: [email or web address]
[2018-06-20] MEDS: LEVOFLOXACIN 750 MG/D5W RTU 750 MG/150 ML RTUPB IV SCH (21:55)
[2018-06-20] MEDS: METHYLPREDNISOLONE INJ 125 MG/2 ML SDV IV SCH (21:55)
[2018-06-20] MEDS: HEPARIN SOD (PORCINE) 5,000 UNIT/ML 1 ML SYRINGE SUBCUT SCH (21:57)
[2018-06-20] MEDS: AMLODIPINE BESYLATE 10 MG TABLET PO SCH (21:58)
[2018-06-21 00:53] LABS: CREATINE KINASE MB 3.22 ng/mL (<4.55)
[2018-06-21 00:56] LABS: TROPONIN I < 0.012 ng/mL
[2018-06-21] MEDS: IPRATROPIUM/ALBUTEROL 0.5-2.5 MG/3 ML AMPUL NEB SCH ×8 (01:45→23:24)
[2018-06-21] MEDS: HEPARIN SOD (PORCINE) 5,000 UNIT/ML 1 ML SYRINGE SUBCUT SCH ×3 (05:51→21:56)
[2018-06-21] MEDS: METHYLPREDNISOLONE INJ 125 MG/2 ML SDV IV SCH ×3 (05:52→21:56)
[2018-06-21] MEDS: LANSOPRAZOLE 30 MG TAB.RAP.DR PO SCH (05:53)
[2018-06-21 06:52] LABS: ABSOLUTE LYMPHOCYTES (AUTO) 0.7 10^3/uL (0.5-4.7); ABSOLUTE MONOCYTES (AUTO) 0.5 10^3/uL (0.1-1.4); BASOPHILS % (AUTO) 0.3 % (0-2); HEMATOCRIT 44.9 % (37.9-51.0); HEMOGLOBIN 15.8 g/dL (13.5-17.0); LYMPHOCYTES % (AUTO) 7.1 % (13-45); MEAN CORPUSCULAR HEMOGLOBIN 33.4 pg (27.0-33.4); MEAN CORPUSCULAR HGB CONC 35.1 g/dL (32.0-36.0); MEAN CORPUSCULAR VOLUME 95 fl (80-97); MONOCYTES % (AUTO) 5.9 % (3-13); PLATELET COUNT 198 10^3/uL (150-450); RED BLOOD COUNT 4.72 10^6/uL (4.35-5.55); RED CELL DISTRIBUTION WIDTH 14.4 % (11.5-14.0); SEGMENTED NEUTROPHILS % (AUTO) 86.7 % (42-78); TOTAL CELLS COUNTED % (AUTO) 100 %; WHITE BLOOD COUNT 9.3 10^3/uL (4.0-10.5)
[2018-06-21 07:18] LABS: ALANINE AMINOTRANSFERASE 41 U/L (21-72); ALBUMIN 4.1 g/dL (3.5-5.0); ALKALINE PHOSPHATASE 59 U/L (38-126); ANION GAP 13 (5-19); ASPARTATE AMINO TRANSFERASE 48 U/L (17-59); BILIRUBIN,DIRECT 0.3 mg/dL (0.0-0.4); BILIRUBIN,TOTAL 0.9 mg/dL (0.2-1.3); BLOOD UREA NITROGEN 18 mg/dL (7-20); CALCIUM 9.1 mg/dL (8.4-10.2); CARBON DIOXIDE 23 mmol/L (22-30); CHLORIDE 100 mmol/L (98-107); CHOLESTEROL 206.61 mg/dL (0-200); CREATINE KINASE 273 U/L (55-170); GLUCOSE 169 mg/dL (75-110); POTASSIUM 4.7 mmol/L (3.6-5.0); SODIUM 135.6 mmol/L (137-145); TOTAL PROTEIN 7.2 g/dL (6.3-8.2); TRIGLYCERIDES 50 mg/dL (<150)
[2018-06-21 07:28] LABS: CREATINE KINASE MB 3.14 ng/mL (<4.55)
[2018-06-21 07:29] LABS: DIRECT LDL 107 mg/dL (<100)
[2018-06-21 07:42] LABS: TROPONIN I < 0.012 ng/mL
[2018-06-21] MEDS: INSULIN LISPRO 100 UNIT/ML 3 ML VIAL SUBCUT PRN ×3 (07:47→22:52)
[2018-06-21] MEDS: METFORMIN HCL 500 MG TABLET PO SCH ×2 (09:12→17:50)
[2018-06-21] MEDS: ROFLUMILAST 500 MCG TABLET PO SCH (09:13)
[2018-06-21] MEDS: AMLODIPINE BESYLATE 10 MG TABLET PO SCH (09:13)
[2018-06-21] MEDS: ASPIRIN 81 MG TABLET, CHEWABLE PO SCH (09:13)
--- NOTE | 2018-06-21 09:40 | EKG REPORT ---
SEVERITY:- ABNORMAL ECG - SINUS RHYTHM VENTRICULAR PREMATURE COMPLEX LEFT AXIS DEVIATION LEFT VENTRICULAR HYPERTROPHY BORDERLINE T ABNORMALITIES, INFERIOR LEADS BORDERLINE PROLONGED QT INTERVAL : Confirmed by: Harrison Jin MD 21-Jun-2018 09:40:17
[2018-06-21] MEDS ORDERED: (PENDING PHARMACY ID) (Roflumilast [Daliresp 500 Mcg Tablet] 500 MCG) PO SCH (10:00)
[2018-06-21] MEDS ORDERED: AMLODIPINE BESYLATE 10 MG TABLET PO SCH (10:00)
--- NOTE | 2018-06-21 11:15 | PDOC PROGRESS REPORT ---
Subjective Progress Note for:: 06/21/18 Subjective:: Is and was admitted for the COPD acute exacerbations Currently doing fair Denied any chest pain Patient's wheezing is much better Reason For Visit: ACUTE COPD EXACERBATION IMPENDING RESPIRATORY FAIL Physical Exam Vital Signs: Temp Pulse Resp BP Pulse Ox 97.8 F 83 18 134/65 H 93 06/21/18 08:00 06/21/18 08:16 06/21/18 08:16 06/21/18 08:00 06/21/18 08:16 Intake & Output 06/20/18 06/21/18 06/22/18 06:59 06:59 06:59 Intake Total 875 Output Total 175 Balance 700 Weight 103.3 kg General appearance: PRESENT: no acute distress, well-developed, well-nourished Head exam: PRESENT: atraumatic, normocephalic Eye exam: PRESENT: conjunctiva pink, EOMI, PERRLA. ABSENT: scleral icterus Ear exam: PRESENT: normal external ear exam Mouth exam: PRESENT: moist, tongue midline Neck exam: PRESENT: full ROM. ABSENT: carotid bruit, JVD, lymphadenopathy, thyromegaly Respiratory exam: PRESENT: wheezes Cardiovascular exam: PRESENT: RRR. ABSENT: diastolic murmur, rubs, systolic murmur Pulses: PRESENT: normal dorsalis pedis pul, +2 pedal pulses bilateral Vascular exam: PRESENT: normal capillary refill GI/Abdominal exam: PRESENT: normal bowel sounds, soft. ABSENT: distended, guarding, mass, organolmegaly, rebound, tenderness Rectal exam: PRESENT: deferred Extremities exam: ABSENT: pedal edema Musculoskeletal exam: PRESENT: ambulatory Neurological exam: PRESENT: alert, awake, oriented to person, oriented to place , oriented to time, oriented to situation, CN II-XII grossly intact. ABSENT: motor sensory deficit Psychiatric exam: PRESENT: appropriate affect, normal mood. ABSENT: homicidal ideation, suicidal ideation Skin exam: PRESENT: dry, intact, warm. ABSENT: cyanosis, rash Results Laboratory Results: 06/21/18 06:13 06/21/18 06:13 06/20/18 06/20/18 06/20/18 16:35 18:35 18:35 WBC RBC Hgb Hct MCV MCH MCHC RDW Plt Count Seg Neutrophils % Lymphocytes % Monocytes % Eosinophils % Basophils % Absolute Neutrophils Absolute Lymphocytes Absolute Monocytes Absolute Eosinophils Absolute Basophils Carbonic Acid HCO3/H2CO3 Ratio ABG pH ABG pCO2 ABG pO2 ABG HCO3 ABG O2 Saturation ABG Base Excess FiO2 Sodium Potassium Chloride Carbon Dioxide Anion Gap BUN Creatinine Est GFR ( Amer) Est GFR (Non-Af Amer) Glucose Calcium Phosphorus 2.7 Magnesium 2.5 H Total Bilirubin AST ALT Alkaline Phosphatase Ammonia < 8.7 L Total Protein Albumin Triglycerides Cholesterol LDL Cholesterol Direct VLDL Cholesterol HDL Cholesterol Amylase 47 Lipase 103.6 TSH Free T4 Urine Color YELLOW Urine Appearance SLIGHTLY-CLOUDY Urine pH 5.0 Ur Specific [place] 1.015 Urine Protein NEGATIVE Urine Glucose (UA) NEGATIVE Urine Ketones 20 H Urine Blood NEGATIVE Urine Nitrite NEGATIVE Ur Leukocyte Esterase NEGATIVE Urine WBC (Auto) 1 Urine RBC (Auto) 1 06/20/18 06/20/18 06/20/18 18:35 18:40 19:47 WBC RBC Hgb Hct MCV MCH MCHC RDW Plt Count Seg Neutrophils % Lymphocytes % Monocytes % Eosinophils % Basophils % Absolute Neutrophils Absolute Lymphocytes Absolute Monocytes Absolute Eosinophils Absolute Basophils Carbonic Acid 0.95 L HCO3/H2CO3 Ratio 24:1 ABG pH 7.49 H ABG pCO2 31.6 L ABG pO2 71.5 L ABG HCO3 23.5 ABG O2 Saturation 95.7 ABG Base Excess 1.3 FiO2 20% Sodium Potassium Chloride Carbon Dioxide Anion Gap BUN Creatinine Est GFR ( Amer) Est GFR (Non-Af Amer) Glucose Calcium Phosphorus Magnesium Total Bilirubin AST ALT Alkaline Phosphatase Ammonia Total Protein Albumin Triglycerides Cholesterol LDL Cholesterol Direct VLDL Cholesterol HDL Cholesterol Amylase Lipase TSH 2.66 Free T4 0.68 L Urine Color YELLOW Urine Appearance SLIGHTLY-CLOUDY Urine pH 5.0 Ur Specific [place] 1.012 Urine Protein NEGATIVE Urine Glucose (UA) NEGATIVE Urine Ketones 20 H Urine Blood SMALL H Urine Nitrite NEGATIVE Ur Leukocyte Esterase NEGATIVE Urine WBC (Auto) 0 Urine RBC (Auto) 0 06/21/18 06/21/18 06:13 06:13 WBC 9.3 RBC 4.72 Hgb 15.8 Hct 44.9 MCV 95 MCH 33.4 MCHC 35.1 RDW 14.4 H Plt Count 198 Seg Neutrophils % 86.7 H Lymphocytes % 7.1 L Monocytes % 5.9 Eosinophils % 0.0 Basophils % 0.3 Absolute Neutrophils 8.0 Absolute Lymphocytes 0.7 Absolute Monocytes 0.5 Absolute Eosinophils 0.0 Absolute Basophils 0.0 Carbonic Acid HCO3/H2CO3 Ratio ABG pH ABG pCO2 ABG pO2 ABG HCO3 ABG O2 Saturation ABG Base Excess FiO2 Sodium 135.6 L Potassium 4.7 Chloride 100 Carbon Dioxide 23 Anion Gap 13 BUN 18 Creatinine 0.82 Est GFR ( Amer) > 60 Est GFR (Non-Af Amer) > 60 Glucose 169 H Calcium 9.1 Phosphorus Magnesium Total Bilirubin 0.9 AST 48 ALT 41 Alkaline Phosphatase 59 Ammonia Total Protein 7.2 Albumin 4.1 Triglycerides 50 Cholesterol 206.61 H LDL Cholesterol Direct 107 H VLDL Cholesterol 10.0 HDL Cholesterol 98 Amylase Lipase TSH Free T4 Urine Color Urine Appearance Urine pH Ur Specific [place] Urine Protein Urine Glucose (UA) Urine Ketones Urine Blood Urine Nitrite Ur Leukocyte Esterase Urine WBC (Auto) Urine RBC (Auto) 06/20/18 06/20/18 06/20/18 18:35 18:35 18:35 Creatine Kinase 261 H CK-MB (CK-2) 3.77 Troponin I < 0.012 NT-Pro-B Natriuret Pep 60 06/21/18 06/21/18 06/21/18 00:19 00:19 06:13 Creatine Kinase 244 H 273 H CK-MB (CK-2) 3.22 Troponin I < 0.012 NT-Pro-B Natriuret Pep 06/21/18 06:13 Creatine Kinase CK-MB (CK-2) 3.14 Troponin I < 0.012 NT-Pro-B Natriuret Pep Impressions: Chest CT 06/20/18 00:00 IMPRESSION: Coronary artery calcification. Gallstones. Chest X-Ray 06/20/18 13:46 IMPRESSION: NO ACUTE RADIOGRAPHIC FINDING IN THE CHEST. Assessment & Plan - Diagnosis (1) Acute exacerbation of chronic obstructive airways disease Is this a current diagnosis for this admission?: Yes Plan: Currently doing well Continues to IV Solu-Medrol and nebulizer (2) Acute hypoxemic respiratory failure Is this a current diagnosis for this admission?: Yes Plan: Currently getting better (3) Asthma Is this a current diagnosis for this admission?: Yes (4) GERD (gastroesophageal reflux disease) Qualifiers: Esophagitis presence: without esophagitis Qualified Code(s): K21.9 - Gastro -esophageal reflux disease without esophagitis Is this a current diagnosis for this admission?: Yes (5) Hypertension Qualifiers: Hypertension type: essential hypertension Qualified Code(s): I10 - Essential (primary) hypertension Is this a current diagnosis for this admission?: Yes Plan: Currently all stable (6) Type 2 diabetes mellitus Qualifiers: Diabetes mellitus equipment detailer insulin use: without equipment detailer use Diabetes mellitus complication status: without complication Qualified Code(s): E11.9 - Type 2 diabetes mellitus without complications Is this a current diagnosis for this admission?: Yes Plan: Continues to current medication - Time Time Spent with patient: 15-24 minutes Medications reviewed and adjusted accordingly: Yes Anticipated discharge: Home Within: Other - Inpatient Certification Medical Necessity: Need for IV Antibiotics Post Hospital Care: D/C Design And Sales Consultant Documentation - Plan Summary Plan Summary: Continues to current medication
[2018-06-21] MEDS: LEVOFLOXACIN 750 MG/D5W RTU 750 MG/150 ML RTUPB IV SCH (21:56)
[2018-06-22] MEDS: IPRATROPIUM/ALBUTEROL 0.5-2.5 MG/3 ML AMPUL NEB SCH ×8 (02:13→23:48)
[2018-06-22 05:33] LABS: HEMATOCRIT 42.9 % (37.9-51.0); HEMOGLOBIN 14.9 g/dL (13.5-17.0); MEAN CORPUSCULAR HEMOGLOBIN 33.4 pg (27.0-33.4); MEAN CORPUSCULAR HGB CONC 34.7 g/dL (32.0-36.0); MEAN CORPUSCULAR VOLUME 96 fl (80-97); PLATELET COUNT 192 10^3/uL (150-450); RED BLOOD COUNT 4.46 10^6/uL (4.35-5.55); WHITE BLOOD COUNT 13.2 10^3/uL (4.0-10.5)
[2018-06-22] MEDS: METHYLPREDNISOLONE INJ 125 MG/2 ML SDV IV SCH ×3 (05:41→23:02)
[2018-06-22] MEDS: HEPARIN SOD (PORCINE) 5,000 UNIT/ML 1 ML SYRINGE SUBCUT SCH (05:41)
[2018-06-22] MEDS: LANSOPRAZOLE 30 MG TAB.RAP.DR PO SCH (05:42)
[2018-06-22 06:00] LABS: ALANINE AMINOTRANSFERASE 31 U/L (21-72); ALBUMIN 3.8 g/dL (3.5-5.0); ALKALINE PHOSPHATASE 45 U/L (38-126); ANION GAP 12 (5-19); ASPARTATE AMINO TRANSFERASE 39 U/L (17-59); BILIRUBIN,DIRECT 0.4 mg/dL (0.0-0.4); BILIRUBIN,TOTAL 0.9 mg/dL (0.2-1.3); BLOOD UREA NITROGEN 20 mg/dL (7-20); CARBON DIOXIDE 24 mmol/L (22-30); CHLORIDE 100 mmol/L (98-107); GLUCOSE 165 mg/dL (75-110); POTASSIUM 4.4 mmol/L (3.6-5.0); SODIUM 136.3 mmol/L (137-145); TOTAL PROTEIN 6.7 g/dL (6.3-8.2)
[2018-06-22 06:11] LABS: ABSOLUTE LYMPHOCYTES# (MANUAL) 0.4 10^3/uL (0.5-4.7); ABSOLUTE MONOCYTES # (MANUAL) 0.9 10^3/uL (0.1-1.4); ABSOLUTE NEUTROPHILS# (MANUAL) 11.9 10^3/uL (1.7-8.2); BASOPHILS % (MANUAL) 0 % (0-2); EOSINOPHILS % (MANUAL) 0 % (0-6); LYMPHOCYTES % (MANUAL) 3 % (13-45); MONOCYTES % (MANUAL) 7 % (3-13); SEGMENTED NEUTROPHILS % (MAN) 90 % (42-78); TOTAL CELLS COUNTED 100
[2018-06-22 06:12] LABS: ANISOCYTOSIS 1+; PLATELET COMMENT ADEQUATE; POLYCHROMASIA 1+
[2018-06-22] MEDS: INSULIN LISPRO 100 UNIT/ML 3 ML VIAL SUBCUT PRN ×2 (08:09→12:39)
[2018-06-22] MEDS: AMLODIPINE BESYLATE 10 MG TABLET PO SCH (09:25)
[2018-06-22] MEDS: METFORMIN HCL 500 MG TABLET PO SCH ×2 (09:26→17:23)
[2018-06-22] MEDS: ASPIRIN 81 MG TABLET, CHEWABLE PO SCH (09:26)
[2018-06-22] MEDS: ROFLUMILAST 500 MCG TABLET PO SCH (09:26)
--- NOTE | 2018-06-22 11:08 | PDOC PROGRESS REPORT ---
Subjective Progress Note for:: 06/22/18 Subjective:: Patient is getting better today Wheezing is much improved he has noticed some bleeding issue when he brushes the tooth and on the lip bleeding Reason For Visit: ACUTE COPD EXACERBATION IMPENDING RESPIRATORY FAIL Physical Exam Vital Signs: Temp Pulse Resp BP Pulse Ox 97.6 F 99 18 129/75 H 93 06/22/18 07:48 06/22/18 07:48 06/22/18 07:48 06/22/18 07:48 06/22/18 07:48 Intake & Output 06/21/18 06/22/18 06/23/18 06:59 06:59 06:59 Intake Total 875 1392 Output Total 175 425 Balance 700 967 Weight 103.3 kg 102.8 kg General appearance: PRESENT: no acute distress, well-developed, well-nourished Head exam: PRESENT: atraumatic, normocephalic Eye exam: PRESENT: conjunctiva pink, EOMI, PERRLA. ABSENT: scleral icterus Ear exam: PRESENT: normal external ear exam Mouth exam: PRESENT: moist, tongue midline Neck exam: PRESENT: full ROM. ABSENT: carotid bruit, JVD, lymphadenopathy, thyromegaly Respiratory exam: PRESENT: clear to auscultation booker Cardiovascular exam: PRESENT: RRR. ABSENT: diastolic murmur, rubs, systolic murmur Pulses: PRESENT: normal dorsalis pedis pul, +2 pedal pulses bilateral Vascular exam: PRESENT: normal capillary refill GI/Abdominal exam: PRESENT: normal bowel sounds, soft. ABSENT: distended, guarding, mass, organolmegaly, rebound, tenderness Rectal exam: PRESENT: deferred Extremities exam: ABSENT: pedal edema Musculoskeletal exam: PRESENT: ambulatory Neurological exam: PRESENT: alert, awake, oriented to person, oriented to place , oriented to time, oriented to situation, CN II-XII grossly intact. ABSENT: motor sensory deficit Psychiatric exam: PRESENT: appropriate affect, normal mood. ABSENT: homicidal ideation, suicidal ideation Skin exam: PRESENT: dry, intact, warm. ABSENT: cyanosis, rash Results Laboratory Results: 06/22/18 04:37 06/22/18 04:37 06/22/18 06/22/18 04:37 04:37 WBC 13.2 H RBC 4.46 Hgb 14.9 Hct 42.9 MCV 96 MCH 33.4 MCHC 34.7 RDW 15.0 H Plt Count 192 Seg Neutrophils % Not Reportable Lymphocytes % Not Reportable Monocytes % Not Reportable Eosinophils % Not Reportable Basophils % Not Reportable Absolute Neutrophils Not Reportable Absolute Lymphocytes Not Reportable Absolute Monocytes Not Reportable Absolute Eosinophils Not Reportable Absolute Basophils Not Reportable Sodium 136.3 L Potassium 4.4 Chloride 100 Carbon Dioxide 24 Anion Gap 12 BUN 20 Creatinine 0.94 Est GFR ( Amer) > 60 Est GFR (Non-Af Amer) > 60 Glucose 165 H Calcium 9.0 Total Bilirubin 0.9 AST 39 ALT 31 Alkaline Phosphatase 45 Total Protein 6.7 Albumin 3.8 06/20/18 06/20/18 06/20/18 18:35 18:35 18:35 Creatine Kinase 261 H CK-MB (CK-2) 3.77 Troponin I < 0.012 NT-Pro-B Natriuret Pep 60 06/21/18 06/21/18 06/21/18 00:19 00:19 06:13 Creatine Kinase 244 H 273 H CK-MB (CK-2) 3.22 Troponin I < 0.012 NT-Pro-B Natriuret Pep 06/21/18 06:13 Creatine Kinase CK-MB (CK-2) 3.14 Troponin I < 0.012 NT-Pro-B Natriuret Pep Impressions: Chest CT 06/20/18 00:00 IMPRESSION: Coronary artery calcification. Gallstones. Chest X-Ray 06/20/18 13:46 IMPRESSION: NO ACUTE RADIOGRAPHIC FINDING IN THE CHEST. Assessment & Plan - Diagnosis (1) Acute exacerbation of chronic obstructive airways disease Is this a current diagnosis for this admission?: Yes Plan: Reduce the IV steroid continues to nebulizer (2) Acute hypoxemic respiratory failure Is this a current diagnosis for this admission?: Yes Plan: Currently getting better (3) Asthma Is this a current diagnosis for this admission?: Yes (4) GERD (gastroesophageal reflux disease) Qualifiers: Esophagitis presence: without esophagitis Qualified Code(s): K21.9 - Gastro -esophageal reflux disease without esophagitis Is this a current diagnosis for this admission?: Yes (5) Hypertension Qualifiers: Hypertension type: essential hypertension Qualified Code(s): I10 - Essential (primary) hypertension Is this a current diagnosis for this admission?: Yes Plan: Currently all stable (6) Type 2 diabetes mellitus Qualifiers: Diabetes mellitus terminal computer operator insulin use: without half-way use Diabetes mellitus complication status: without complication Qualified Code(s): E11.9 - Type 2 diabetes mellitus without complications Is this a current diagnosis for this admission?: Yes Plan: Continues to current medication - Time Time Spent with patient: 15-24 minutes Medications reviewed and adjusted accordingly: Yes Anticipated discharge: Home Within: Other - Inpatient Certification Based on my medical assessment, after consideration of the patient's comorbidities, presenting symptoms, or acuity I expect that the services needed warrant INPATIENT care.: Yes I certify that my determination is in accordance with my understanding of Medicare's requirements for reasonable and necessary INPATIENT services [42 CFR 412.3e].: Yes Medical Necessity: Need Close Monitoring Due to Risk of Patient Decompensation, Need for IV Antibiotics Post Hospital Care: D/C Archeology Professor Documentation - Plan Summary Plan Summary: Will reduce the IV steroid hold the heparin discussed with the nurses to ambulate the patient's
[2018-06-22] MEDS: LEVOFLOXACIN 750 MG/D5W RTU 750 MG/150 ML RTUPB IV SCH (23:02)
[2018-06-23] MEDS: IPRATROPIUM/ALBUTEROL 0.5-2.5 MG/3 ML AMPUL NEB SCH ×5 (04:31→20:17)
[2018-06-23] MEDS: LANSOPRAZOLE 30 MG TAB.RAP.DR PO SCH (05:20)
[2018-06-23] MEDS: METHYLPREDNISOLONE INJ 125 MG/2 ML SDV IV SCH ×3 (05:20→21:59)
[2018-06-23 07:00] LABS: HEMATOCRIT 42.8 % (37.9-51.0); MEAN CORPUSCULAR HEMOGLOBIN 33.6 pg (27.0-33.4); MEAN CORPUSCULAR VOLUME 96 fl (80-97); PLATELET COUNT 191 10^3/uL (150-450); RED BLOOD COUNT 4.45 10^6/uL (4.35-5.55); WHITE BLOOD COUNT 11.9 10^3/uL (4.0-10.5)
[2018-06-23 07:14] LABS: ALANINE AMINOTRANSFERASE 35 U/L (21-72); ALBUMIN 3.7 g/dL (3.5-5.0); ALKALINE PHOSPHATASE 44 U/L (38-126); ANION GAP 11 (5-19); ASPARTATE AMINO TRANSFERASE 32 U/L (17-59); BILIRUBIN,DIRECT 0.3 mg/dL (0.0-0.4); BILIRUBIN,TOTAL 0.9 mg/dL (0.2-1.3); BLOOD UREA NITROGEN 22 mg/dL (7-20); CARBON DIOXIDE 24 mmol/L (22-30); CHLORIDE 100 mmol/L (98-107); GLUCOSE 150 mg/dL (75-110); POTASSIUM 4.1 mmol/L (3.6-5.0); SODIUM 135.2 mmol/L (137-145); TOTAL PROTEIN 6.4 g/dL (6.3-8.2)
[2018-06-23 08:04] LABS: ABSOLUTE LYMPHOCYTES# (MANUAL) 0.7 10^3/uL (0.5-4.7); ABSOLUTE MONOCYTES # (MANUAL) 1.1 10^3/uL (0.1-1.4); ABSOLUTE NEUTROPHILS# (MANUAL) 10.1 10^3/uL (1.7-8.2); ANISOCYTOSIS SLIGHT; BASOPHILS % (MANUAL) 0 % (0-2); EOSINOPHILS % (MANUAL) 0 % (0-6); LYMPHOCYTES % (MANUAL) 5 % (13-45); METAMYELOCYTES % (MANUAL) 1 % (0); MONOCYTES % (MANUAL) 9 % (3-13); PLATELET COMMENT ADEQUATE; SEGMENTED NEUTROPHILS % (MAN) 84 % (42-78); TOTAL CELLS COUNTED 100; TOXIC GRANULATION SLIGHT
[2018-06-23] MEDS: AMLODIPINE BESYLATE 10 MG TABLET PO SCH (10:32)
[2018-06-23] MEDS: ROFLUMILAST 500 MCG TABLET PO SCH (10:32)
[2018-06-23] MEDS: METFORMIN HCL 500 MG TABLET PO SCH ×2 (10:32→18:23)
[2018-06-23] MEDS: ASPIRIN 81 MG TABLET, CHEWABLE PO SCH (10:32)
--- NOTE | 2018-06-23 20:09 | PDOC DISCHARGE SUMMARY ---
General - Admit/Disc Date/PCP Admission Date/Primary Care Provider: 06/20/18 16:26 ZAIRE MILTON MD Discharge Date: 06/24/18 - Discharge Diagnosis (1) Acute exacerbation of chronic obstructive airways disease Is this a current diagnosis for this admission?: Yes (2) Acute hypoxemic respiratory failure Is this a current diagnosis for this admission?: Yes - Additional Information Resuscitation Status: Full Code Prescriptions: Fluticasone/Umeclidin/Vilanter [Trelegy 100-62.5-25 Mcg Ellipta 14 Dose/Dpi] 1 each NEB DAILY #2 inhaler Prednisone 40 mg PO DAILY #5 tablet Home Medications: Amlodipine Besylate [Norvasc 10 mg Tablet] 10 mg PO DAILY 06/20/18 Aspirin [Aspirin 81 mg Chewable Tablet] 81 mg PO DAILY 06/20/18 Ipratropium/Albuterol Sulfate [Duoneb 3 ml Ampul] 3 ml NEB RTQ4 06/20/18 Metformin HCl [Glucophage 500 mg Tablet] 500 mg PO BID 06/20/18 Pantoprazole Sodium [Protonix] 40 mg PO DAILY 06/20/18 Roflumilast [Daliresp 500 mcg Tablet] 500 mcg PO DAILY 06/20/18 Fluticasone/Umeclidin/Vilanter [Trelegy 100-62.5-25 Mcg Ellipta 14 Dose/Dpi] 1 each NEB DAILY #2 inhaler 06/23/18 Ipratropium/Albuterol Sulfate [Duoneb 3 ml Ampul] 3 ml NEB RTQ4 vial.neb Prednisone 40 mg PO DAILY #5 tablet 06/23/18 History of Present Illness History of Present Illness: ANDRE BATES is a 72 year old male, He has a history of chronic obstructive pulmonary disease, type 2 diabetes mellitus, he came to the emergency room for evaluation of respiratory distress. In the emergency room he was managed with bronchodilators, IV Solu-Medrol, despite the intervention in the emergency room patient continues to be in distress, with shortness of breath, audible wheeze and also he was in a state of impending respiratory failure the ED physician felt that patient needed to be admitted into the hospital for continued management ,it was unsafe to discharge him home because of the impending respiratory failure. The ABG on FiO2,20%, pH 7.49, PCO2 31.6 , PO2 71.5 bicarbonate 23.5 I saw him on the floor, he was audibly wheezing, struggling to breathe, there was flarring of the nasal nares Hospital Course Hospital Course: Patient was admitted for the management of acute COPD exacerbation, he was treated with IV Solu-Medrol, bronchodilators DuoNeb, antibiotic. CT chest did not show any pneumonic infiltrate, patient is much better Physical Exam Vital Signs: Temp Pulse Resp BP Pulse Ox 97.7 F 86 16 136/59 H 100 06/23/18 16:12 06/23/18 16:12 06/23/18 16:12 06/23/18 16:12 06/23/18 16:12 Intake & Output 06/22/18 06/23/18 06/24/18 06:59 06:59 06:59 Intake Total 1392 1637 518 Output Total 425 250 Balance 967 1637 268 Weight 102.8 kg 103.8 kg General appearance: PRESENT: no acute distress, well-developed, well-nourished Head exam: PRESENT: atraumatic, normocephalic Eye exam: PRESENT: conjunctiva pink, EOMI, PERRLA Ear exam: PRESENT: normal external ear exam Mouth exam: PRESENT: moist, tongue midline Neck exam: PRESENT: full ROM Respiratory exam: PRESENT: clear to auscultation booker Cardiovascular exam: PRESENT: RRR, +S1, +S2 Vascular exam: PRESENT: normal capillary refill GI/Abdominal exam: PRESENT: normal bowel sounds, soft Rectal exam: PRESENT: deferred Neurological exam: PRESENT: alert, awake, oriented to person, oriented to place , oriented to time, oriented to situation, CN II-XII grossly intact Psychiatric exam: PRESENT: appropriate affect, normal mood Skin exam: PRESENT: dry, intact, warm Results Laboratory Results: 06/23/18 06:30 06/23/18 06:30 06/23/18 06/23/18 06:30 06:30 WBC 11.9 H RBC 4.45 Hgb 15.0 Hct 42.8 MCV 96 MCH 33.6 H MCHC 35.0 RDW 15.0 H Plt Count 191 Seg Neutrophils % Not Reportable Lymphocytes % Not Reportable Monocytes % Not Reportable Eosinophils % Not Reportable Basophils % Not Reportable Absolute Neutrophils Not Reportable Absolute Lymphocytes Not Reportable Absolute Monocytes Not Reportable Absolute Eosinophils Not Reportable Absolute Basophils Not Reportable Sodium 135.2 L Potassium 4.1 Chloride 100 Carbon Dioxide 24 Anion Gap 11 BUN 22 H Creatinine 0.89 Est GFR ( Amer) > 60 Est GFR (Non-Af Amer) > 60 Glucose 150 H Calcium 9.0 Total Bilirubin 0.9 AST 32 ALT 35 Alkaline Phosphatase 44 Total Protein 6.4 Albumin 3.7 06/20/18 06/20/18 06/20/18 18:35 18:35 18:35 Creatine Kinase 261 H CK-MB (CK-2) 3.77 Troponin I < 0.012 NT-Pro-B Natriuret Pep 60 06/21/18 06/21/18 06/21/18 00:19 00:19 06:13 Creatine Kinase 244 H 273 H CK-MB (CK-2) 3.22 Troponin I < 0.012 NT-Pro-B Natriuret Pep 06/21/18 06:13 Creatine Kinase CK-MB (CK-2) 3.14 Troponin I < 0.012 NT-Pro-B Natriuret Pep Impressions: Chest CT 06/20/18 00:00 IMPRESSION: Coronary artery calcification. Gallstones. Chest X-Ray 06/20/18 13:46 IMPRESSION: NO ACUTE RADIOGRAPHIC FINDING IN THE CHEST. Qualifiers - * PATIENT BEING DISCHARGED WITH ANY OF THE FOLLOWING DIAGNOSIS: No
[2018-06-23] MEDS: LEVOFLOXACIN 750 MG/D5W RTU 750 MG/150 ML RTUPB IV SCH (21:59)
[2018-06-24] MEDS: IPRATROPIUM/ALBUTEROL 0.5-2.5 MG/3 ML AMPUL NEB SCH ×4 (00:48→12:02)
[2018-06-24] MEDS: METHYLPREDNISOLONE INJ 125 MG/2 ML SDV IV SCH (05:19)
[2018-06-24] MEDS: LANSOPRAZOLE 30 MG TAB.RAP.DR PO SCH (05:23)
[2018-06-24] MEDS: AMLODIPINE BESYLATE 10 MG TABLET PO SCH (10:39)
[2018-06-24] MEDS: METFORMIN HCL 500 MG TABLET PO SCH (10:39)
[2018-06-24] MEDS: ASPIRIN 81 MG TABLET, CHEWABLE PO SCH (10:39)
[2018-06-24] MEDS: ROFLUMILAST 500 MCG TABLET PO SCH (10:39)
[2018-06-24 13:04] VITALS: BP 139/70
== END 2018-06-24 13:23 | disposition home or self-care (01) | DRG 189 ==
LOC: ER 13:33 → OBSVTOIN 16:26 → EH 16:26 → 4S 17:35
PROVIDERS: ADMIT Internal Medicine; ATTEND Internal Medicine
PROC: 3E0234Z Introduction of Serum, Toxoid and Vaccine into Muscle, Percutaneous Approach (ICD-10-PCS; principal; 2018-06-24)
DX: J96.01 Acute respiratory failure with hypoxia (principal); J44.1 Chronic obstructive pulmonary disease with (acute) exacerbation; E78.00 Pure hypercholesterolemia, unspecified; I10 Essential (primary) hypertension; K21.9 Gastro-esophageal reflux disease without esophagitis; E11.8 Type 2 diabetes mellitus with unspecified complications; Z87.891 Personal history of nicotine dependence; Z23 Encounter for immunization
CPT/HCPCS: 36415; 36600; 71045; 71250; 80048; 80053; 80061; 80076; 81001; 82140; 82150; 82550; 82553; 82803; 82962; 83036; 83690; 83735; 83880; 84100; 84439; 84443; 84484; 85025; 87040; 87086; 90471; 90686; 93005; 93010; 94640; 96365; 96375; 99285; G0008; J1644; J1815; J1956; J2930; J3475; J7620

== ENCOUNTER 2018-09-08 01:00 | Inpatient (IN) | payer MEDICARE, MEDICAID ==
[2018-09-08] MEDS ORDERED: IPRATROPIUM/ALBUTEROL 0.5-2.5 MG/3 ML AMPUL NEB ONE ×2 (01:13)
--- NOTE | 2018-09-08 01:18 | ER Document Report ---
ED Respiratory Problem - General Stated Complaint: DIFFICULTY BREATHING Time Seen by Provider: 09/08/18 01:07 Notes: Patient is a 73-year-old male that comes to the emerge chief complaint of difficulty breathing, worsening over the past 4 days. He comes by EMS. Was fede Daniel, Solu-Medrol in route. Patient has home nebulizers but he is not on home oxygen. He states his normal oxygen saturation is 95-97, initial oxygen saturation 92% tonight. Patient denies fever. Past medical history of asthma and COPD, former smoker, stopped 16 years ago. Also has a past medical history of hypertension and he is on metformin. He denies chest pain, abdominal pain, nausea or vomiting. Patient states he has had frequent admissions in the past for COPD but he denies ever being intubated. TRAVEL OUTSIDE OF THE [place] IN LAST 30 DAYS: No - Related Data Allergies/Adverse Reactions: No Known Allergies Allergy (Verified 06/20/18 19:19) Past Medical History - General Information source: Patient - Social History Smoking Status: Former Smoker Frequency of alcohol use: None Drug Abuse: None Lives with: Family Family History: Reviewed & Not Pertinent, Arthritis, CVA, DM, Hypertension, Thyroid Disfunction - Past Medical History Cardiac Medical History: Reports: Hx Hypercholesterolemia, Hx Hypertension Pulmonary Medical History: Reports: Hx Asthma, Hx COPD Endocrine Medical History: Reports: Hx Diabetes Mellitus Type 2 Renal/ Medical History: Denies: Hx Peritoneal Dialysis GI Medical History: Reports: Hx Gastroesophageal Reflux Disease, Hx Colonoscopy Musculoskeletal Medical History: Reports Hx Arthritis Skin Medical History: Reports Hx MRSA Psychiatric Medical History: Denies: Hx Depression Infectious Medical History: Reports: Hx MRSA Past Surgical History: Reports: Hx Abdominal Surgery - Hernia Repair, Hx Genitourinary Surgery - SCRUTAL FLUID DRAINED, Hx Herniorrhaphy - Left, Hx Inguinal Hernia - Immunizations Hx Diphtheria, Pertussis, Tetanus Vaccination: Yes Hx Pneumococcal Vaccination: 09/02/11 Review of Systems - Review of Systems Constitutional: No symptoms reported EENT: No symptoms reported Cardiovascular: See HPI Respiratory: See HPI Gastrointestinal: No symptoms reported Genitourinary: No symptoms reported Male Genitourinary: No symptoms reported Musculoskeletal: No symptoms reported Skin: No symptoms reported Hematologic/Lymphatic: No symptoms reported Neurological/Psychological: No symptoms reported Physical Exam - Vital signs Vitals: Pulse Ox 93 09/08/18 01:01 - Notes Notes: GENERAL: Alert and responsive HEAD: Normocephalic, atraumatic. EYES: Pupils equal, round, and reactive to light. Extraocular movements intact. ENT: Oral mucosa moist, tongue midline. Oropharynx unremarkable. Airway patent. Nares patent, no nasal septal hematoma, TM's intact. NECK: Full range of motion. Supple. Trachea midline. LUNGS: Very decreased breath sounds bilaterally, tachypnea, expiratory wheezes, scattered rhonchi. No rales. HEART: Tachycardia. Normal rhythm. No murmur. ABDOMEN: Soft, non-tender. Non-distended. Bowel sounds present in all 4 quadrants. GENITOURINARY: Deferred EXTREMITIES: Moves all 4 extremities spontaneously. No edema, normal radial and dorsalis pedis pulses bilaterally. No cyanosis. BACK: no cervical, thoracic, lumbar midline tenderness. No saddle anesthesia, normal distal neurovascular exam. NEUROLOGICAL: Alert and oriented x3. Normal speech. [cranial nerves II through XII grossly intact]. SKIN: Warm, dry, michelle skin. Course - Re-evaluation Re-evalutation: 09/08/18 01:15 On initial evaluation patient has mild respiratory distress, he is tachycardic at about 105, pulse oxygenation 92% on room air, blood pressure unremarkable. Respiratory rate 35. Very decreased breath sounds with wheezing throughout. Patient can still speak in nearly full sentences. Placed on oxygen at bedside, given additional DuoNeb's, magnesium, patient will be closely reevaluated. Workup pending. 09/08/18 02:00 Patient has been reevaluated twice. Now his work of breathing is increased, tachypnea at 35+, hypoxia down to 91% on 2 L nasal cannula, appears to be working slightly harder to breathe and has difficulty completing sentences. Placing on BiPAP. Has better air movement after nebs and magnesium but still has rhonchi and wheezing throughout. He has yellow productive sputum. Worsening cough for 4 days. Pending chest x-ray read but appearance is consistent with right lower lobe pneumonia. Leukocytosis at 13.4 with elevated neutrophils but no bandemia. Clinical picture is consistent with pneumonia. Starting on antibiotics. Venous blood gas does not show acidosis. Chemistry is generally unremarkable. Will talk to patient's provider for admission. Patient reevaluated, is doing much better on BiPAP, oxygen saturation 97%, respiratory rate now down to 15, tachycardia resolved. Radiology report reading that chest x-ray shows vascular congestion, however clinically I still suspect this is pneumonia, I hear no rales, he has no history of CHF, he has no lower extremity swelling, he has productive cough, leukocytosis. 09/08/18 02:[address] Sauceda, on-call for Dr. Yoel alvarez, he recommends patient be admitted to the [facility] for admission, requests that the patient be put under Dr. Diallo's name because he will be consulting on his patients this morning. - Vital Signs Vital signs: Temp Pulse Resp BP Pulse Ox 97.9 F 92 24 H 151/64 H 95 09/08/18 05:17 09/08/18 05:19 09/08/18 05:17 09/08/18 05:17 09/08/18 05:17 - Laboratory Result Diagrams: 09/08/18 01:14 09/08/18 01:14 Laboratory results interpreted by me: 09/08/18 09/08/18 09/08/18 01:14 01:14 01:14 WBC 13.4 H MCV 99 H RDW 14.5 H Monocytes % 15.2 H Absolute Neutrophils 9.3 H Absolute Monocytes 2.0 H VBG pH 7.46 H VBG pCO2 33.4 L Sodium 132.8 L Carbon Dioxide 20 L Glucose 120 H Direct Bilirubin 0.5 H Discharge - Discharge Clinical Impression: COPD exacerbation, Shortness of breath, Acute respiratory distress Pneumonia Qualifiers: Pneumonia type: due to unspecified organism Laterality: right Lung location: lower lobe of lung Qualified Code(s): J18.1 - Lobar pneumonia, unspecified organism Condition: Fair Disposition: ADMITTED INPATIENT Admitting Provider: Yoel Unit Admitted: [facility]
[2018-09-08] MEDS: MAGNESIUM SULFATE/D5W 1 GM/100 ML RTUPB IV SCH ×2 (01:25→02:14)
[2018-09-08 01:37] LABS: VENOUS BLOOD BASE EXCESS 0.2 mmol/L; VENOUS BLOOD HCO3 23.2 mmol/L (20-32); VENOUS BLOOD PCO2 33.4 mmHg (35-63); VENOUS BLOOD PH 7.46 (7.30-7.42)
[2018-09-08 01:42] LABS: ABSOLUTE BASOPHILS # (AUTO) 0.1 10^3/uL (0.0-0.2); ABSOLUTE EOSINOPHILS # (AUTO) 0.2 10^3/uL (0.0-0.6); ABSOLUTE LYMPHOCYTES (AUTO) 1.8 10^3/uL (0.5-4.7); ABSOLUTE NEUT (AUTO) 9.3 10^3/uL (1.7-8.2); BASOPHILS % (AUTO) 0.6 % (0-2); EOSINOPHILS % (AUTO) 1.4 % (0-6); HEMATOCRIT 47.2 % (37.9-51.0); HEMOGLOBIN 15.9 g/dL (13.5-17.0); LYMPHOCYTES % (AUTO) 13.5 % (13-45); MEAN CORPUSCULAR HEMOGLOBIN 33.4 pg (27.0-33.4); MEAN CORPUSCULAR HGB CONC 33.7 g/dL (32.0-36.0); MEAN CORPUSCULAR VOLUME 99 fl (80-97); MONOCYTES % (AUTO) 15.2 % (3-13); PLATELET COUNT 253 10^3/uL (150-450); RED BLOOD COUNT 4.77 10^6/uL (4.35-5.55); RED CELL DISTRIBUTION WIDTH 14.5 % (11.5-14.0); SEGMENTED NEUTROPHILS % (AUTO) 69.3 % (42-78); TOTAL CELLS COUNTED % (AUTO) 100 %; WHITE BLOOD COUNT 13.4 10^3/uL (4.0-10.5)
--- NOTE | 2018-09-08 01:54 | RADIOLOGY REPORT (SQ) ---
EXAM DESCRIPTION: XR CHEST 1 VIEW COMPLETED DATE/TME: 09/08/2018 01:12 CLINICAL HISTORY: 73 years Male, shortness of breath COMPARISON: 06/20/18 NUMBER OF VIEWS/TECHNIQUE: 1/AP FINDINGS: Adequate lung volume, pulmonary vascular congestion, normal cardiac silhouette, and intact bony thorax.Atherosclerotic vascular disease. IMPRESSION: Pulmonary vascular congestion.
[2018-09-08 01:55] LABS: ALANINE AMINOTRANSFERASE 29 U/L (21-72); ALBUMIN 3.8 g/dL (3.5-5.0); ALKALINE PHOSPHATASE 63 U/L (38-126); ANION GAP 14 (5-19); ASPARTATE AMINO TRANSFERASE 33 U/L (17-59); BILIRUBIN,DIRECT 0.5 mg/dL (0.0-0.4); BILIRUBIN,TOTAL 1.2 mg/dL (0.2-1.3); BLOOD UREA NITROGEN 9 mg/dL (7-20); CARBON DIOXIDE 20 mmol/L (22-30); CHLORIDE 99 mmol/L (98-107); GLUCOSE 120 mg/dL (75-110); POTASSIUM 4.6 mmol/L (3.6-5.0); SODIUM 132.8 mmol/L (137-145)
[2018-09-08] MEDS ORDERED: CEFTRIAXONE 1 GM/D5W RTU 1 GM/50 ML RTUPB IV ONE (01:58)
[2018-09-08] MEDS ORDERED: AZITHROMYCIN INJ 500 MG VIAL IV ONE (01:59)
[2018-09-08 02:30] LABS: A TYPE INFLUENZA AG NEGATIVE (NEGATIVE); B INFLUENZA AG NEGATIVE (NEGATIVE)
[2018-09-08] MEDS ORDERED: DEXTROSE 50%-WATER SYRINGE 25 GM/50 ML DOSE IV PRN (06:00)
[2018-09-08] MEDS ORDERED: DEXTROSE 40% GEL 15 GM TUBE PO PRN (06:00)
[2018-09-08] MEDS ORDERED: DEXTROSE 50%-WATER SYRINGE 12.5 GM/25 ML DOSE IV PRN (06:00)
[2018-09-08] MEDS ORDERED: GLUCAGON,HUMAN RECOMB 1 MG INJ IM PRN (06:00)
[2018-09-08] MEDS ORDERED: DEXTROSE 40% GEL 15 GM TUBE X 2 PO PRN (06:00)
--- NOTE | 2018-09-08 07:36 | EKG REPORT ---
SEVERITY:- BORDERLINE ECG - SINUS TACHYCARDIA LEFT AXIS DEVIATION CONSIDER ANTERIOR INFARCT : Confirmed by: Harrison Jin MD 08-Sep-2018 07:35:58
[2018-09-08] MEDS: INSULIN LISPRO 100 UNIT/ML 3 ML VIAL SUBCUT PRN ×4 (08:25→23:20)
[2018-09-08] MEDS: METHYLPREDNISOLONE INJ 125 MG/2 ML SDV IV SCH ×3 (08:26→23:15)
[2018-09-08] MEDS: IPRATROPIUM/ALBUTEROL 0.5-2.5 MG/3 ML AMPUL NEB SCH ×4 (08:59→20:25)
[2018-09-08] MEDS ORDERED: (PENDING PHARMACY ID) (Roflumilast [Daliresp 500 Mcg Tablet] 500 MCG) PO SCH (10:00)
[2018-09-08] MEDS: METFORMIN HCL 500 MG TABLET PO SCH ×2 (10:08→17:09)
[2018-09-08] MEDS: ROFLUMILAST 500 MCG TABLET PO SCH (10:53)
[2018-09-08] MEDS: BUDESONIDE/FORMOTEROL 160-4.5 MCG 60 PUFF/6 GM MDI IH SCH ×2 (10:54→23:16)
[2018-09-08] MEDS ORDERED: IPRATROPIUM/ALBUTEROL 0.5-2.5 MG/3 ML AMPUL NEB SCH (12:00)
--- NOTE | 2018-09-08 19:23 | PDOC H&P ---
History of Present Illness Admission Date/PCP: 09/08/18 02:40 ZAIRE MILTON MD History of Present Illness: ANDRE BATES is a 73 year old male, He has a history of very severe chronic obstructive pulmonary disease, he came to the emergency room for evaluation of shortness of breath in the emergency room he was evaluated, on auscultation he was found to have diffuse diffuse wheeze on both lung field, he was in respiratory distress, the breathing was supported with noninvasive positive pressure ventilation, BiPAP. Was treated with Solu-Medrol, bronchodilators without much improvement, chest x-ray showed or suggest pneumonia.Hospital admission was advised by the ED doctors Past Medical History Cardiac Medical History: Reports: Hyperlipidema, Hypertension Pulmonary Medical History: Reports: Asthma, Chronic Obstructive Pulmonary Disease (COPD) Endocrine Medical History: Reports: Diabetes Mellitus Type 2 GI Medical History: Reports: Gastroesophageal Reflux Disease Musculoskeltal Medical History: Reports: Arthritis Infectious Medical History: Reports: Methicillin-Resistant Staph Aureus Past Surgical History Past Surgical History: Reports: Herniorrhaphy - Left Social History Lives with: Family Smoking Status: Former Smoker Number of Years Smokin Last Time Smoked: 2002 Frequency of Alcohol Use: Occasional Hx Recreational Drug Use: No Drugs: None Hx Prescription Drug Abuse: No Family History Family History: Reviewed & Not Pertinent, Arthritis, CVA, DM, Hypertension, Thyroid Disfunction Parental Family History Reviewed: Yes Children Family History Reviewed: Yes Sibling(s) Family History Reviewed.: Yes Medication/Allergy Home Medications: Albuterol Sulfate [Ventolin Hfa 8 gm Mdi (1 Mdi/ER Disp)] 2 puff IH Q4HP PRN 09/08/18 Budesonide/Formoterol Fumarate [Symbicort HFA 160-4.5 mcg Inhaler 6 gm] 1 puff IH BID 09/08/18 Ipratropium/Albuterol Sulfate [Duoneb 3 ml Ampul] 3 ml NEB RTQ4 09/08/18 Metformin HCl [Glucophage 500 mg Tablet] 500 mg PO BID 09/08/18 Pantoprazole Sodium [Protonix] 40 mg PO DAILY 09/08/18 Roflumilast [Daliresp 500 mcg Tablet] 500 mcg PO DAILY 09/08/18 Allergies/Adverse Reactions: No Known Allergies Allergy (Verified 06/20/18 19:19) Review of Systems Constitutional: ABSENT: chills, fever(s), headache(s), weight gain, weight loss Eyes: ABSENT: visual disturbances Ears: ABSENT: hearing changes Cardiovascular: PRESENT: dyspnea on exertion. ABSENT: chest pain, edema, orthropnea, palpitations Respiratory: PRESENT: cough, dyspnea Gastrointestinal: ABSENT: abdominal pain, constipation, diarrhea, hematemesis, hematochezia, nausea, vomiting Genitourinary: ABSENT: dysuria, hematuria Musculoskeletal: ABSENT: joint swelling Integumentary: ABSENT: rash, wounds Neurological: ABSENT: abnormal gait, abnormal speech, confusion, dizziness, focal weakness, syncope Psychiatric: ABSENT: anxiety, depression, homidical ideation, suicidal ideation Endocrine: ABSENT: cold intolerance, heat intolerance, menstrual abnormalities, polydipsia, polyuria Hematologic/Lymphatic: ABSENT: easy bleeding, easy bruising, lymphadenopathy Physical Exam Vital Signs: Temp Pulse Resp BP Pulse Ox 97.7 F 87 20 154/66 H 96 09/08/18 15:13 09/08/18 15:13 09/08/18 15:13 09/08/18 15:13 09/08/18 15:13 Intake & Output 09/07/18 09/08/18 09/09/18 06:59 06:59 06:59 Intake Total 232 1360 Output Total 0 Balance 232 1360 Weight 104.5 kg General appearance: PRESENT: mild distress Head exam: PRESENT: atraumatic, normocephalic Eye exam: PRESENT: PERRLA Neck exam: PRESENT: full ROM Respiratory exam: PRESENT: wheezes Cardiovascular exam: PRESENT: +S1, +S2 Vascular exam: PRESENT: normal capillary refill GI/Abdominal exam: PRESENT: normal bowel sounds, soft Rectal exam: PRESENT: deferred Neurological exam: PRESENT: alert, CN II-XII grossly intact Psychiatric exam: PRESENT: appropriate affect, normal mood Skin exam: PRESENT: dry, intact, warm Results Laboratory Results: 09/08/18 01:14 09/08/18 01:14 09/08/18 09/08/18 09/08/18 01:14 01:14 01:14 WBC 13.4 H RBC 4.77 Hgb 15.9 Hct 47.2 MCV 99 H MCH 33.4 MCHC 33.7 RDW 14.5 H Plt Count 253 Seg Neutrophils % 69.3 Lymphocytes % 13.5 Monocytes % 15.2 H Eosinophils % 1.4 Basophils % 0.6 Absolute Neutrophils 9.3 H Absolute Lymphocytes 1.8 Absolute Monocytes 2.0 H Absolute Eosinophils 0.2 Absolute Basophils 0.1 VBG pH 7.46 H VBG pCO2 33.4 L VBG HCO3 23.2 VBG Base Excess 0.2 Sodium 132.8 L Potassium 4.6 Chloride 99 Carbon Dioxide 20 L Anion Gap 14 BUN 9 Creatinine 0.75 Est GFR ( Amer) > 60 Est GFR (Non-Af Amer) > 60 Glucose 120 H Calcium 9.0 Total Bilirubin 1.2 AST 33 ALT 29 Alkaline Phosphatase 63 Total Protein 7.0 Albumin 3.8 09/08/18 01:14 Troponin I < 0.012 Impressions: Chest X-Ray 09/08/18 01:12 IMPRESSION: Pulmonary vascular congestion. Assessment & Plan - Diagnosis (1) Acute exacerbation of chronic obstructive airways disease Is this a current diagnosis for this admission?: Yes Plan: Patient with a history of multiple hospital admission for acute COPD exacerbation, start IV Solu-Medrol, bronchodilators, IV antibiotic (2) Acute respiratory distress Is this a current diagnosis for this admission?: Yes Plan: He has acute respiratory distress due to acute COPD exacerbation, he required noninvasive positive pressure ventilation with BiPAP to prevent progression to stanley acute respiratory failure (3) Type 2 diabetes mellitus Qualifiers: Diabetes mellitus nursing home insulin use: without carding doubler use Diabetes mellitus complication status: without complication Qualified Code(s): E11.9 - Type 2 diabetes mellitus without complications Is this a current diagnosis for this admission?: Yes
[2018-09-08] MEDS: LEVOFLOXACIN 750 MG/D5W RTU 750 MG/150 ML RTUPB IV SCH (23:15)
[2018-09-09] MEDS: IPRATROPIUM/ALBUTEROL 0.5-2.5 MG/3 ML AMPUL NEB SCH ×6 (00:48→20:46)
[2018-09-09] MEDS: METHYLPREDNISOLONE INJ 125 MG/2 ML SDV IV SCH ×3 (05:17→22:30)
[2018-09-09] MEDS: LANSOPRAZOLE 30 MG TAB.RAP.DR PO SCH (05:17)
[2018-09-09] MEDS: ROFLUMILAST 500 MCG TABLET PO SCH (11:59)
[2018-09-09] MEDS: METFORMIN HCL 500 MG TABLET PO SCH ×2 (11:59→20:27)
[2018-09-09] MEDS: BUDESONIDE/FORMOTEROL 160-4.5 MCG 60 PUFF/6 GM MDI IH SCH ×2 (11:59→22:30)
[2018-09-09] MEDS: LEVOFLOXACIN 750 MG/D5W RTU 750 MG/150 ML RTUPB IV SCH (20:27)
--- NOTE | 2018-09-09 21:06 | PDOC PROGRESS REPORT ---
Subjective Progress Note for:: 09/09/18 Subjective:: Patient seen by the bedside, patient is very symptomatic with more work of breathing, using accessory muscles of breathing Reason For Visit: COPD EXACERBATION, PNEUMONIA, SHORTNESS OF BREATH Physical Exam Vital Signs: Temp Pulse Resp BP Pulse Ox 98.0 F 81 40 H 151/69 H 96 09/09/18 20:06 09/09/18 20:06 09/09/18 20:06 09/09/18 20:06 09/09/18 20:06 Intake & Output 09/08/18 09/09/18 09/10/18 06:59 06:59 06:59 Intake Total 232 1510 1210 Output Total 0 Balance 232 1510 1210 Weight 104.5 kg 104.8 kg General appearance: PRESENT: mild distress Eye exam: PRESENT: PERRLA Respiratory exam: PRESENT: wheezes Cardiovascular exam: PRESENT: +S1, +S2 GI/Abdominal exam: PRESENT: soft Neurological exam: PRESENT: alert Results Laboratory Results: 09/08/18 01:14 09/08/18 01:14 09/08/18 01:14 Troponin I < 0.012 Impressions: Chest X-Ray 09/08/18 01:12 IMPRESSION: Pulmonary vascular congestion. Assessment & Plan - Diagnosis (1) Acute exacerbation of chronic obstructive airways disease Is this a current diagnosis for this admission?: Yes Plan: , Continue IV Solu-Medrol ,bronchodilators (2) Acute respiratory distress Is this a current diagnosis for this admission?: Yes (3) Type 2 diabetes mellitus Qualifiers: Diabetes mellitus longterm insulin use: without longterm use Diabetes mellitus complication status: without complication Qualified Code(s): E11.9 - Type 2 diabetes mellitus without complications Is this a current diagnosis for this admission?: Yes
[2018-09-10] MEDS: IPRATROPIUM/ALBUTEROL 0.5-2.5 MG/3 ML AMPUL NEB SCH ×6 (01:00→19:39)
[2018-09-10] MEDS: METHYLPREDNISOLONE INJ 125 MG/2 ML SDV IV SCH ×3 (05:59→21:44)
[2018-09-10] MEDS: LANSOPRAZOLE 30 MG TAB.RAP.DR PO SCH (06:00)
[2018-09-10] MEDS: METFORMIN HCL 500 MG TABLET PO SCH ×2 (09:52→19:48)
[2018-09-10] MEDS: BUDESONIDE/FORMOTEROL 160-4.5 MCG 60 PUFF/6 GM MDI IH SCH ×2 (09:52→21:45)
[2018-09-10] MEDS: ROFLUMILAST 500 MCG TABLET PO SCH (09:52)
--- NOTE | 2018-09-10 18:37 | PDOC PROGRESS REPORT ---
Subjective Progress Note for:: 09/10/18 Subjective:: Patient seen by the bedside still have very loud audible wheeze in both lung field Reason For Visit: COPD EXACERBATION, PNEUMONIA, SHORTNESS OF BREATH Physical Exam Vital Signs: Temp Pulse Resp BP Pulse Ox 97.9 F 90 18 145/66 H 95 09/10/18 15:25 09/10/18 16:48 09/10/18 16:48 09/10/18 15:25 09/10/18 16:48 Intake & Output 09/09/18 09/10/18 09/11/18 06:59 06:59 06:59 Intake Total 1510 1360 1029 Output Total 350 Balance 1510 1010 1029 Weight 104.8 kg General appearance: PRESENT: mild distress Eye exam: PRESENT: PERRLA Respiratory exam: PRESENT: wheezes Cardiovascular exam: PRESENT: +S1, +S2 GI/Abdominal exam: PRESENT: soft Neurological exam: PRESENT: alert Results Laboratory Results: 09/08/18 01:14 09/08/18 01:14 09/08/18 01:14 Troponin I < 0.012 Impressions: Chest X-Ray 09/08/18 01:12 IMPRESSION: Pulmonary vascular congestion. Assessment & Plan - Diagnosis (1) Acute exacerbation of chronic obstructive airways disease Is this a current diagnosis for this admission?: Yes Plan: Continue IV Solu-Medrol for a total of 3 days (2) Acute respiratory distress Is this a current diagnosis for this admission?: Yes (3) Type 2 diabetes mellitus Qualifiers: Diabetes mellitus [facility] insulin use: without termite inspector use Diabetes mellitus complication status: without complication Qualified Code(s): E11.9 - Type 2 diabetes mellitus without complications Is this a current diagnosis for this admission?: Yes
[2018-09-10] MEDS: LEVOFLOXACIN 750 MG/D5W RTU 750 MG/150 ML RTUPB IV SCH (19:55)
[2018-09-10] MEDS: INSULIN LISPRO 100 UNIT/ML 3 ML VIAL SUBCUT PRN (21:44)
[2018-09-11] MEDS: IPRATROPIUM/ALBUTEROL 0.5-2.5 MG/3 ML AMPUL NEB SCH ×6 (00:26→20:11)
[2018-09-11] MEDS: LANSOPRAZOLE 30 MG TAB.RAP.DR PO SCH (05:05)
[2018-09-11] MEDS: METHYLPREDNISOLONE INJ 125 MG/2 ML SDV IV SCH ×2 (05:05→15:20)
[2018-09-11] MEDS: METFORMIN HCL 500 MG TABLET PO SCH ×2 (11:53→19:23)
[2018-09-11] MEDS: ROFLUMILAST 500 MCG TABLET PO SCH (11:53)
[2018-09-11] MEDS: BUDESONIDE/FORMOTEROL 160-4.5 MCG 60 PUFF/6 GM MDI IH SCH ×2 (11:53→21:42)
--- NOTE | 2018-09-11 20:50 | PDOC PROGRESS REPORT ---
Subjective Progress Note for:: 09/11/18 Subjective:: Patient seen by the bedside, he continues to show improvement, Reason For Visit: COPD EXACERBATION, PNEUMONIA, SHORTNESS OF BREATH Physical Exam Vital Signs: Temp Pulse Resp BP Pulse Ox 97.8 F 88 20 133/62 H 95 09/11/18 19:54 09/11/18 20:12 09/11/18 20:12 09/11/18 19:54 09/11/18 20:12 Intake & Output 09/10/18 09/11/18 09/12/18 06:59 06:59 06:59 Intake Total 1360 1179 851 Output Total 350 Balance 1010 1179 851 Weight 103.2 kg General appearance: PRESENT: no acute distress Eye exam: PRESENT: PERRLA Respiratory exam: PRESENT: wheezes Cardiovascular exam: PRESENT: +S1, +S2 GI/Abdominal exam: PRESENT: soft Neurological exam: PRESENT: alert Results Laboratory Results: 09/08/18 01:14 09/08/18 01:14 09/08/18 01:14 Troponin I < 0.012 Impressions: Chest X-Ray 09/08/18 01:12 IMPRESSION: Pulmonary vascular congestion. Assessment & Plan - Diagnosis (1) Acute exacerbation of chronic obstructive airways disease Is this a current diagnosis for this admission?: Yes Plan: Discontinue IV Solu-Medrol, start prednisone 60 mg p.o. daily for 4 days then 40 mg p.o. daily for 4 days then 20 mg p.o. daily for 4 days (2) Acute respiratory distress Is this a current diagnosis for this admission?: Yes (3) Type 2 diabetes mellitus Qualifiers: Diabetes mellitus care home insulin use: without care home use Diabetes mellitus complication status: without complication Qualified Code(s): E11.9 - Type 2 diabetes mellitus without complications Is this a current diagnosis for this admission?: Yes
[2018-09-11] MEDS: LEVOFLOXACIN 750 MG/D5W RTU 750 MG/150 ML RTUPB IV SCH (21:42)
[2018-09-11] MEDS: INSULIN LISPRO 100 UNIT/ML 3 ML VIAL SUBCUT PRN (21:43)
[2018-09-11] MEDS: PREDNISONE 20 MG TABLET PO SCH (21:56)
[2018-09-12] MEDS: IPRATROPIUM/ALBUTEROL 0.5-2.5 MG/3 ML AMPUL NEB SCH ×6 (00:21→20:28)
[2018-09-12] MEDS: LANSOPRAZOLE 30 MG TAB.RAP.DR PO SCH (05:08)
[2018-09-12] MEDS: METFORMIN HCL 500 MG TABLET PO SCH ×2 (12:58→20:19)
[2018-09-12] MEDS: BUDESONIDE/FORMOTEROL 160-4.5 MCG 60 PUFF/6 GM MDI IH SCH ×2 (12:58→21:00)
[2018-09-12] MEDS: PREDNISONE 20 MG TABLET PO SCH (12:58)
[2018-09-12] MEDS: ROFLUMILAST 500 MCG TABLET PO SCH (12:58)
[2018-09-12] MEDS: LEVOFLOXACIN 750 MG/D5W RTU 750 MG/150 ML RTUPB IV SCH (20:19)
--- NOTE | 2018-09-12 21:26 | PDOC PROGRESS REPORT ---
Subjective Progress Note for:: 09/12/18 Subjective:: Patient seen by the bedside, he has no new complaints Reason For Visit: COPD EXACERBATION, PNEUMONIA, SHORTNESS OF BREATH Physical Exam Vital Signs: Temp Pulse Resp BP Pulse Ox 97.4 F 75 16 145/66 H 100 09/12/18 20:22 09/12/18 20:28 09/12/18 20:28 09/12/18 20:22 09/12/18 20:28 Intake & Output 09/11/18 09/12/18 09/13/18 06:59 06:59 06:59 Intake Total 1179 1001 1505 Balance 1179 1001 1505 Weight 103.2 kg 103.3 kg General appearance: PRESENT: no acute distress Eye exam: PRESENT: PERRLA Respiratory exam: PRESENT: clear to auscultation booker Cardiovascular exam: PRESENT: +S1, +S2 GI/Abdominal exam: PRESENT: soft Neurological exam: PRESENT: alert Results Laboratory Results: 09/08/18 01:14 09/08/18 01:14 09/08/18 01:14 Troponin I < 0.012 Impressions: Chest X-Ray 09/08/18 01:12 IMPRESSION: Pulmonary vascular congestion. Assessment & Plan - Diagnosis (1) Acute exacerbation of chronic obstructive airways disease Is this a current diagnosis for this admission?: Yes Plan: Continue present treatment (2) Acute respiratory distress Is this a current diagnosis for this admission?: Yes (3) Type 2 diabetes mellitus Qualifiers: Diabetes mellitus watermaster insulin use: without watermaster use Diabetes mellitus complication status: without complication Qualified Code(s): E11.9 - Type 2 diabetes mellitus without complications Is this a current diagnosis for this admission?: Yes
[2018-09-12] MEDS: INSULIN LISPRO 100 UNIT/ML 3 ML VIAL SUBCUT PRN (21:45)
[2018-09-13] MEDS: IPRATROPIUM/ALBUTEROL 0.5-2.5 MG/3 ML AMPUL NEB SCH ×5 (00:34→16:07)
[2018-09-13] MEDS: LANSOPRAZOLE 30 MG TAB.RAP.DR PO SCH (05:18)
[2018-09-13] MEDS: ROFLUMILAST 500 MCG TABLET PO SCH (10:22)
[2018-09-13] MEDS: BUDESONIDE/FORMOTEROL 160-4.5 MCG 60 PUFF/6 GM MDI IH SCH (10:22)
[2018-09-13] MEDS: PREDNISONE 20 MG TABLET PO SCH (10:22)
[2018-09-13] MEDS: METFORMIN HCL 500 MG TABLET PO SCH (10:22)
--- NOTE | 2018-09-13 16:14 | PDOC DISCHARGE SUMMARY ---
General - Admit/Disc Date/PCP Admission Date/Primary Care Provider: 09/08/18 02:40 ZAIRE MILTON MD Discharge Date: 09/13/18 - Discharge Diagnosis (1) Acute exacerbation of chronic obstructive airways disease Is this a current diagnosis for this admission?: Yes (2) Type 2 diabetes mellitus Is this a current diagnosis for this admission?: Yes (3) Acute hypoxemic respiratory failure Is this a current diagnosis for this admission?: Yes - Additional Information Prescriptions: Fluticasone/Umeclidin/Vilanter [Trelegy 100-62.5-25 Mcg Ellipta 14 Dose/Dpi] 1 each IH DAILY #2 inhaler Prednisone [Deltasone 20 mg Tablet] 10 mg PO DAILY #36 tablet Home Medications: Albuterol Sulfate [Ventolin Hfa 8 gm Mdi (1 Mdi/ER Disp)] 2 puff IH Q4HP PRN 09/08/18 Ipratropium/Albuterol Sulfate [Duoneb 3 ml Ampul] 3 ml NEB RTQ4 09/08/18 Metformin HCl [Glucophage 500 mg Tablet] 500 mg PO BID 09/08/18 Pantoprazole Sodium [Protonix] 40 mg PO DAILY 09/08/18 Roflumilast [Daliresp 500 mcg Tablet] 500 mcg PO DAILY 09/08/18 Fluticasone/Umeclidin/Vilanter [Trelegy 100-62.5-25 Mcg Ellipta 14 Dose/Dpi] 1 each IH DAILY #2 inhaler 09/13/18 Prednisone [Deltasone 20 mg Tablet] 10 mg PO DAILY #36 tablet 09/13/18 History of Present Illness History of Present Illness: ANDRE BATES is a 73 year old male, He has a history of very severe chronic obstructive pulmonary disease, he came to the emergency room for evaluation of shortness of breath in the emergency room he was evaluated, on auscultation he was found to have diffuse diffuse wheeze on both lung field, he was in respiratory distress, the breathing was supported with noninvasive positive pressure ventilation, BiPAP. Was treated with Solu-Medrol, bronchodilators without much improvement, chest x-ray showed or suggest pneumonia.Hospital admission was advised by the ED doctors Hospital Course Hospital Course: Patient was admitted for the management of acute COPD exacerbation associated with acute hypoxemic respiratory failure, he was treated with IV Solu-Medrol 125 mg every 8 hours for 3 days, was transitioned to p.o. prednisone 60 mg p.o. daily 2 days ago. He also had IV antibiotic, because of concern he may have pneumonia, the presentation is more consistent with COPD. On examination today, there is complete resolution of the wheezing on auscultation of his chest Physical Exam Vital Signs: Temp Pulse Resp BP Pulse Ox 98.3 F 93 17 142/74 H 96 09/13/18 12:24 09/13/18 12:35 09/13/18 12:35 09/13/18 12:24 09/13/18 12:35 Intake & Output 09/12/18 09/13/18 09/14/18 06:59 06:59 06:59 Intake Total 1001 1976 Balance 1001 1976 Weight 103.3 kg 102.1 kg General appearance: PRESENT: no acute distress, well-developed, well-nourished Head exam: PRESENT: atraumatic, normocephalic Eye exam: PRESENT: conjunctiva pink, EOMI, PERRLA Ear exam: PRESENT: normal external ear exam Mouth exam: PRESENT: moist, tongue midline Neck exam: PRESENT: full ROM Respiratory exam: PRESENT: clear to auscultation booker Cardiovascular exam: PRESENT: RRR, +S1, +S2 Vascular exam: PRESENT: normal capillary refill GI/Abdominal exam: PRESENT: normal bowel sounds, soft Rectal exam: PRESENT: deferred Neurological exam: PRESENT: alert, awake, oriented to person, oriented to place, oriented to time, oriented to situation, CN II-XII grossly intact Psychiatric exam: PRESENT: appropriate affect, normal mood Skin exam: PRESENT: dry, intact, warm Results Laboratory Results: 09/08/18 01:14 09/08/18 01:14 09/08/18 03:13 Blood Blood Culture - Final NO GROWTH IN 5 DAYS 09/08/18 01:53 Blood Blood Culture - Final NO GROWTH IN 5 DAYS 09/08/18 01:14 Troponin I < 0.012 Impressions: Chest X-Ray 09/08/18 01:12 IMPRESSION: Pulmonary vascular congestion. Qualifiers - * PATIENT BEING DISCHARGED WITH ANY OF THE FOLLOWING DIAGNOSIS: No
[2018-09-13 17:39] VITALS: BP 147/81
== END 2018-09-13 17:49 | disposition home or self-care (01) | DRG 190 ==
LOC: ER 01:00 → EH 02:40 → 3W 05:18
PROVIDERS: ADMIT Internal Medicine; ATTEND Internal Medicine
PROC: 5A09457 Assistance with Respiratory Ventilation, 24-96 Consecutive Hours, Continuous Positive Airway Pressure (ICD-10-PCS; principal; 2018-09-08)
DX: J44.1 Chronic obstructive pulmonary disease with (acute) exacerbation (principal); J96.01 Acute respiratory failure with hypoxia; E11.9 Type 2 diabetes mellitus without complications; E78.5 Hyperlipidemia, unspecified; I10 Essential (primary) hypertension; K21.9 Gastro-esophageal reflux disease without esophagitis; M19.90 Unspecified osteoarthritis, unspecified site; Z86.14 Personal history of Methicillin resistant Staphylococcus aureus infection; Z87.891 Personal history of nicotine dependence; Z83.3 Family history of diabetes mellitus; Z82.61 Family history of arthritis; Z82.3 Family history of stroke; Z79.51 Long term (current) use of inhaled steroids; Z79.84 Long term (current) use of oral hypoglycemic drugs
CPT/HCPCS: 36415; 71045; 80053; 82803; 82962; 84484; 85025; 87040; 87804; 93005; 93010; 94640; 94660; 96365; 96368; 99285; J0456; J0696; J1815; J1956; J2930; J3475; J3490; J7512; J7620

== ENCOUNTER 2018-10-19 21:28 | Inpatient (IN) | payer MEDICARE, MEDICAID ==
[2018-10-19] MEDS ORDERED: ALBUTEROL SULFATE 0.083% NEB 2.5 MG/3 ML AMPUL NEB ONE ×3 (21:35→22:33)
--- NOTE | 2018-10-19 21:37 | ER Document Report ---
ED General - General Stated Complaint: TROUBLE BREATHING Time Seen by Provider: 10/19/18 21:34 Notes: Patient is a 73-year-old male with a past medical history of COPD, hypertension, presents in respiratory distress by EMS. Patient has some difficulty reporting history at time of initial assessment due to degree of distress. EMS reports that when they arrived the patient's house he is breathing 40-45 times per minute, saturating 93% room air. They know that he was in moderate to severe distress. He was given multiple nebulizers and did not have significant im provement and was subsequently placed on CPAP. At time of arrival patient states that he overall feels moderately improved on CPAP but denies complete resolution. Has had similar symptoms repeated in the past, last hospitalized in September 2018 for a COPD exacerbation. Has been using his home nebulizers at home without significant improvement. Has not noted that seem to trigger this current exacerbation. Has not contacted his primary care doctor regarding today's concerns. TRAVEL OUTSIDE OF THE [place] IN LAST 30 DAYS: No - Related Data Allergies/Adverse Reactions: bee venom protein (honey bee) Allergy (Verified 10/19/18 22:23) Past Medical History - General Information source: Patient - Social History Smoking Status: Former Smoker Frequency of alcohol use: None Drug Abuse: None Lives with: Alone Family History: Reviewed & Not Pertinent, Arthritis, CVA, DM, Hypertension, Thyroid Disfunction - Past Medical History Cardiac Medical History: Reports: Hx Hypercholesterolemia, Hx Hypertension Pulmonary Medical History: Reports: Hx Asthma, Hx COPD Endocrine Medical History: Reports: Hx Diabetes Mellitus Type 2 Renal/ Medical History: Denies: Hx Peritoneal Dialysis GI Medical History: Reports: Hx Gastroesophageal Reflux Disease, Hx Colonoscopy Musculoskeletal Medical History: Reports Hx Arthritis Skin Medical History: Reports Hx MRSA Psychiatric Medical History: Denies: Hx Depression Infectious Medical History: Reports: Hx MRSA Past Surgical History: Reports: Hx Abdominal Surgery - Hernia Repair, Hx Genitourinary Surgery - SCRUTAL FLUID DRAINED, Hx Herniorrhaphy - Left, Hx Inguinal Hernia - Immunizations Hx Diphtheria, Pertussis, Tetanus Vaccination: Yes Hx Pneumococcal Vaccination: 09/02/11 Review of Systems - Review of Systems Notes: Constitutional: Negative for fever. HENT: Negative for sore throat. Eyes: Negative for visual changes. Cardiovascular: Negative for chest pain. Respiratory: Positive for shortness of breath and cough. Gastrointestinal: Negative for abdominal pain, vomiting or diarrhea. Genitourinary: Negative for dysuria. Musculoskeletal: Negative for back pain. Skin: Negative for rash. Neurological: Negative for headaches, weakness or numbness. 10 point ROS negative except as marked above and in HPI. Physical Exam - Vital signs Vitals: Temp Pulse Resp 97.7 F 103 H 27 H 10/19/18 21:28 10/19/18 21:28 10/19/18 21:28 Interpretation: Tachycardic, Tachypneic Notes: PHYSICAL EXAMINATION: GENERAL: Appears moderately unwell, in moderate to severe respiratory distress on CPAP HEAD: Atraumatic, normocephalic. EYES: Pupils equal round and reactive to light, extraocular movements intact, sclera anicteric, conjunctiva are normal. ENT: nares patent, oropharynx clear without exudates. Moderately dry mucous membranes. NECK: Normal range of motion, supple without lymphadenopathy LUNGS: Moderate respiratory distress, coarse expiratory wheezing all lung hua with globally diminished air movement throughout. Intermittent coughing. HEART: Regular tachycardia without murmurs ABDOMEN: Soft, nontender, normoactive bowel sounds. No guarding, no rebound. No masses appreciated. EXTREMITIES: Normal range of motion, no pitting or edema. No cyanosis. NEUROLOGICAL: No focal neurological deficits. Moves all extremities spontaneousl y and on command. PSYCH: Moderately anxious SKIN: Warm, Dry, normal turgor, no rashes or lesions noted. Course - Re-evaluation Re-evalutation: 10/19/18 21:36 Patient presents in moderate to severe respiratory distress, on CPAP provided by EMS with what appears to be a moderate to severe COPD exacerbation. EMS is reported that on their initial evaluation the patient was breathing between 40 and 45 times per minute saturating 93% on room air. Retracting. Work of breathing significantly improved on CPAP. Patient has a ready received Solu- Medrol 125 mg, 2 albuterol and ipratropium nebulizers, and is actively receiving 2 g of magnesium. Will continue BiPAP. Will allow remaining magnesium to finish. 10 g of in-line albuterol. Will obtain stat portable chest x-ray, labs, venous blood gas and reassess the patient at regular intervals. He continues to be quite tight, although does have air movement in all lung hua. Coarse expiratory wheezing in all lung hua. Patient is in guarded condition, will be reassessed at regular intervals. 10/19/18 22:34 Patient has been reassessed on 2 separate occasions. His work of breathing is continued to improve on BiPAP. Does continue to have wheezing and moderate tightness of air movement. Additional 5 mg of nebulized albuterol has been ordered. Labs unremarkable. Chest x-ray unremarkable. Flu is negative. I have discussed this case with Dr. Sauceda who is covering for Dr. Diallo. He has accepted the patient to the [facility]. - Vital Signs Vital signs: Temp Pulse Resp BP Pulse Ox 97.7 F 114 H 19 133/66 H 94 10/19/18 21:28 10/19/18 23:57 10/19/18 23:57 10/19/18 23:57 10/19/18 23:57 - Laboratory Result Diagrams: 10/19/18 21:40 10/19/18 21:40 Laboratory results interpreted by me: 10/19/18 10/19/18 10/19/18 21:40 21:40 21:40 Hgb 17.3 H MCH 33.6 H RDW 14.7 H Plt Count 147 L VBG pH 7.43 H Sodium 136.9 L Glucose 199 H - Diagnostic Test Radiology reviewed: Image reviewed, Reports reviewed Radiology results interpreted by me: 10/19/18 22:35 Chest x-ray: No acute infiltrate or pneumothorax - EKG Interpretation by Me Additional EKG results interpreted by me: 10/19/18 22:35 Sinus tachycardia, rate 101. No ST elevations or depressions. QTC is 462. Critical Care Note - Critical Care Note Total time excluding time spent on procedures (mins): 40 Comments: Critical care time spent obtaining history from patient or surrogate, discussions with consultants, development of treatment plan with patient or surrogate, evaluation of patient's response to treatment, examination of patient, ordering and performing treatments and interventions, ordering and review of laboratory studies, re-evaluation of patient's condition, ordering and review of radiographic studies and review of old charts Discharge - Discharge Clinical Impression: COPD exacerbation, Respiratory distress Condition: Fair Disposition: ADMITTED INPATIENT Admitting Provider: K[facility] Admitted: [facility]
[2018-10-19 21:53] LABS: ABSOLUTE LYMPHOCYTES (AUTO) 0.8 10^3/uL (0.5-4.7); ABSOLUTE MONOCYTES (AUTO) 0.3 10^3/uL (0.1-1.4); ABSOLUTE NEUT (AUTO) 3.1 10^3/uL (1.7-8.2); BASOPHILS % (AUTO) 0.7 % (0-2); EOSINOPHILS % (AUTO) 0.2 % (0-6); HEMATOCRIT 49.5 % (37.9-51.0); HEMOGLOBIN 17.3 g/dL (13.5-17.0); LYMPHOCYTES % (AUTO) 19.6 % (13-45); MEAN CORPUSCULAR HEMOGLOBIN 33.6 pg (27.0-33.4); MEAN CORPUSCULAR HGB CONC 34.9 g/dL (32.0-36.0); MEAN CORPUSCULAR VOLUME 96 fl (80-97); MONOCYTES % (AUTO) 7.6 % (3-13); PLATELET COUNT 147 10^3/uL (150-450); RED BLOOD COUNT 5.14 10^6/uL (4.35-5.55); RED CELL DISTRIBUTION WIDTH 14.7 % (11.5-14.0); SEGMENTED NEUTROPHILS % (AUTO) 71.9 % (42-78); TOTAL CELLS COUNTED % (AUTO) 100 %; WHITE BLOOD COUNT 4.3 10^3/uL (4.0-10.5)
[2018-10-19 21:54] LABS: VENOUS BLOOD HCO3 23.7 mmol/L (20-32); VENOUS BLOOD PCO2 36.5 mmHg (35-63); VENOUS BLOOD PH 7.43 (7.30-7.42)
[2018-10-19 22:11] LABS: ANION GAP 12 (5-19); BLOOD UREA NITROGEN 12 mg/dL (7-20); CALCIUM 9.2 mg/dL (8.4-10.2); CARBON DIOXIDE 24 mmol/L (22-30); CHLORIDE 101 mmol/L (98-107); GLUCOSE 199 mg/dL (75-110); POTASSIUM 4.1 mmol/L (3.6-5.0); SODIUM 136.9 mmol/L (137-145)
--- NOTE | 2018-10-19 22:12 | RADIOLOGY REPORT (SQ) ---
XR CHEST 1 VIEW HISTORY: Shortness of breath. COMPARISON: 09/07/2018 FINDINGS: Interval improvement in pulmonary edema. There are small residual pleural effusion. No pneumothorax or consolidation is seen. The osseous structures are intact. IMPRESSION: Interval improvement of pulmonary edema with small residual pleural effusions.
[2018-10-19 22:17] LABS: A TYPE INFLUENZA AG NEGATIVE (NEGATIVE); B INFLUENZA AG NEGATIVE (NEGATIVE)
--- NOTE | 2018-10-20 01:20 | EKG REPORT ---
SEVERITY:- ABNORMAL ECG - SINUS TACHYCARDIA LEFT ANTERIOR FASCICULAR BLOCK ABNRM R PROG, CONSIDER ASMI OR LEAD PLACEMENT : Confirmed by: Tiffanie Palm MD 20-Oct-2018 01:19:03
[2018-10-20] MEDS ORDERED: DEXTROSE 40% GEL 15 GM TUBE X 2 PO PRN (06:00)
[2018-10-20] MEDS ORDERED: DEXTROSE 50%-WATER SYRINGE 25 GM/50 ML DOSE IV PRN (06:00)
[2018-10-20] MEDS ORDERED: DEXTROSE 50%-WATER SYRINGE 12.5 GM/25 ML DOSE IV PRN (06:00)
[2018-10-20] MEDS ORDERED: DEXTROSE 40% GEL 15 GM TUBE PO PRN (06:00)
[2018-10-20] MEDS ORDERED: GLUCAGON,HUMAN RECOMB 1 MG INJ IM PRN (06:00)
[2018-10-20] MEDS: METHYLPREDNISOLONE INJ 125 MG/2 ML SDV IV SCH ×3 (06:13→21:10)
[2018-10-20] MEDS: INSULIN LISPRO 100 UNIT/ML 3 ML VIAL SUBCUT SCH ×4 (08:03→21:10)
[2018-10-20] MEDS: IPRATROPIUM/ALBUTEROL 0.5-2.5 MG/3 ML AMPUL NEB SCH ×5 (09:02→23:52)
--- NOTE | 2018-10-20 19:54 | PDOC H&P ---
History of Present Illness Admission Date/PCP: 10/19/18 22:50 ZAIRE MILTON MD History of Present Illness: ANDRE BATES is a 73 year old male, He has a history of very severe chronic obstructive pulmonary disease, chronic respiratory failure on home oxygen, type 2 diabetes mellitus, he presented to the emergency room for evaluation of acute respiratory distress. He was transferred by EMS to the hospital, the history was that EMS was called to his home because he was extremely short of breath, when EMS arrived he was very short of breath ,breathing about 40 times a minute he was treated with bronchodilators, the breathing was supported with a noninvasive positive pressure ventilation, CPAP and then transferred to the emergency room for further evaluation. In the emergency room he was stabilized patient felt somewhat better but there was no complete resolution so, hospital admission was advised. He was admitted last month in this hospital for the same problem he was discharged on September 13, 2018 for acute COPD exacerbation associated with acute respiratory failure. Past Medical History Cardiac Medical History: Reports: Hyperlipidema, Hypertension Pulmonary Medical History: Reports: Asthma, Chronic Obstructive Pulmonary Disease (COPD) Endocrine Medical History: Reports: Diabetes Mellitus Type 2 GI Medical History: Reports: Gastroesophageal Reflux Disease Musculoskeltal Medical History: Reports: Arthritis Infectious Medical History: Reports: Methicillin-Resistant Staph Aureus Past Surgical History Past Surgical History: Reports: Herniorrhaphy - Left Social History Lives with: Alone Smoking Status: Former Smoker Cigarettes Packs Per Day: 2 Last Time Smoked: 2002 Frequency of Alcohol Use: Occasional Hx Recreational Drug Use: No Drugs: None Hx Prescription Drug Abuse: No - Advance Directive Resuscitation Status: Full Code Family History Family History: Reviewed & Not Pertinent, Arthritis, CVA, DM, Hypertension, Thyroid Disfunction Parental Family History Reviewed: Yes Children Family History Reviewed: Yes Sibling(s) Family History Reviewed.: Yes Medication/Allergy Home Medications: Albuterol Sulfate [Albuterol Sulfate Hfa] 2 puff IH Q4HP PRN 10/20/18 Amlodipine Besylate [Norvasc 10 mg Tablet] 10 mg PO DAILY 10/20/18 Aspirin [Adult Low Dose Aspirin EC] 81 mg PO DAILY 10/20/18 Fluticasone/Umeclidin/Vilanter [Trelegy 100-62.5-25 Mcg Ellipta 14 Dose/Dpi] 1 puff IH DAILY 10/20/18 Ipratropium/Albuterol Sulfate [Duoneb 3 ml Ampul] 3 ml NEB RTQ4HP PRN 10/20/18 Metformin HCl [Glucophage 500 mg Tablet] 500 mg PO BID 10/20/18 Naproxen Sodium [Aleve] 220 mg PO Q12HP PRN 10/20/18 Pantoprazole Sodium [Protonix] 40 mg PO DAILY 10/20/18 Roflumilast [Daliresp 500 mcg Tablet] 500 mcg PO DAILY 10/20/18 Allergies/Adverse Reactions: bee venom protein (honey bee) Allergy (Verified 10/19/18 22:23) Review of Systems Constitutional: PRESENT: fatigue Eyes: ABSENT: visual disturbances Ears: ABSENT: hearing changes Cardiovascular: PRESENT: dyspnea on exertion Respiratory: PRESENT: cough, dyspnea. ABSENT: hemoptysis Gastrointestinal: ABSENT: abdominal pain, constipation, diarrhea, hematemesis, hematochezia, nausea, vomiting Genitourinary: ABSENT: dysuria, hematuria Musculoskeletal: ABSENT: joint swelling Integumentary: ABSENT: rash, wounds Neurological: ABSENT: abnormal gait, abnormal speech, confusion, dizziness, focal weakness, syncope Psychiatric: ABSENT: anxiety, depression, homidical ideation, suicidal ideation Endocrine: ABSENT: cold intolerance, heat intolerance, menstrual abnormalities, polydipsia, polyuria Hematologic/Lymphatic: ABSENT: easy bleeding, easy bruising, lymphadenopathy Physical Exam Vital Signs: Temp Pulse Resp BP Pulse Ox 97.2 F 87 16 127/61 H 95 10/20/18 15:07 10/20/18 15:07 10/20/18 15:07 10/20/18 15:07 10/20/18 15:07 Intake & Output 10/19/18 10/20/18 10/21/18 06:59 06:59 06:59 Intake Total 222 700 Output Total 800 Balance 222 -100 Weight 100.6 kg General appearance: PRESENT: mild distress Head exam: PRESENT: atraumatic, normocephalic Eye exam: PRESENT: PERRLA Ear exam: PRESENT: normal external ear exam Neck exam: PRESENT: full ROM Respiratory exam: PRESENT: accessory muscle use, wheezes Cardiovascular exam: PRESENT: RRR, +S1, +S2 GI/Abdominal exam: PRESENT: normal bowel sounds, soft Rectal exam: PRESENT: deferred Neurological exam: PRESENT: alert, CN II-XII grossly intact Results Laboratory Results: 10/19/18 21:40 10/19/18 21:40 10/19/18 10/19/18 10/19/18 21:40 21:40 21:40 WBC 4.3 RBC 5.14 Hgb 17.3 H Hct 49.5 MCV 96 MCH 33.6 H MCHC 34.9 RDW 14.7 H Plt Count 147 L Seg Neutrophils % 71.9 Lymphocytes % 19.6 Monocytes % 7.6 Eosinophils % 0.2 Basophils % 0.7 Absolute Neutrophils 3.1 Absolute Lymphocytes 0.8 Absolute Monocytes 0.3 Absolute Eosinophils 0.0 Absolute Basophils 0.0 VBG pH 7.43 H VBG pCO2 36.5 VBG HCO3 23.7 VBG Base Excess 0 Sodium 136.9 L Potassium 4.1 Chloride 101 Carbon Dioxide 24 Anion Gap 12 BUN 12 Creatinine 0.87 Est GFR ( Amer) > 60 Est GFR (Non-Af Amer) > 60 Glucose 199 H Calcium 9.2 10/19/18 21:40 Troponin I < 0.012 Impressions: Chest X-Ray 10/19/18 21:35 IMPRESSION: Interval improvement of pulmonary edema with small residual pleural effusions. Assessment & Plan - Diagnosis (1) Acute exacerbation of chronic obstructive pulmonary disease (COPD) Is this a current diagnosis for this admission?: Yes Plan: He has acute COPD exacerbation associated with acute respiratory distress, the chest x-ray that was done in the emergency room demonstrated pulmonary edema, this raises the suspicion for acute ventricular decompensation, a 2D echo will be requested to assess LV function and to rule out acute systolic heart failure as a potential etiology in the causation of the wheezing episode. Patient is n ot presently requiring noninvasive positive pressure ventilation, is on nasal cannula oxygen, bronchodilators, IV Solu-Medrol 125 every 8 hours
[2018-10-20] MEDS ORDERED: IPRATROPIUM/ALBUTEROL 0.5-2.5 MG/3 ML AMPUL NEB PRN (19:59)
[2018-10-20] MEDS ORDERED: (PENDING PHARMACY ID) (Roflumilast [Daliresp 500 Mcg Tablet] 500 MCG) PO SCH (20:00)
[2018-10-20] MEDS: ASPIRIN 81 MG TABLET, ENT COATED PO SCH (21:10)
[2018-10-20] MEDS: AMLODIPINE BESYLATE 10 MG TABLET PO SCH (21:10)
[2018-10-20] MEDS: METFORMIN HCL 500 MG TABLET PO SCH (21:10)
[2018-10-21] MEDS: IPRATROPIUM/ALBUTEROL 0.5-2.5 MG/3 ML AMPUL NEB SCH ×5 (04:39→19:27)
[2018-10-21] MEDS: METHYLPREDNISOLONE INJ 125 MG/2 ML SDV IV SCH ×3 (05:06→23:11)
[2018-10-21] MEDS: LANSOPRAZOLE 30 MG TAB.RAP.DR PO SCH (05:06)
[2018-10-21] MEDS: INSULIN LISPRO 100 UNIT/ML 3 ML VIAL SUBCUT SCH ×4 (07:53→21:23)
[2018-10-21] MEDS: ROFLUMILAST 500 MCG TABLET PO SCH (09:42)
[2018-10-21] MEDS: AMLODIPINE BESYLATE 10 MG TABLET PO SCH (09:42)
[2018-10-21] MEDS: FLUTICASONE/UMECLIDIN/VILANTER 100-62.5-25 MCG/DOSE IH SCH (09:42)
[2018-10-21] MEDS: METFORMIN HCL 500 MG TABLET PO SCH ×2 (09:43→17:05)
[2018-10-21] MEDS: ASPIRIN 81 MG TABLET, ENT COATED PO SCH (09:43)
--- NOTE | 2018-10-21 14:39 | XCELERA REPORT ---
[address] [address] Transthoracic Echocardiogram Report Name: ANDRE BATES Age: 73 yrs Gender: Male : 1945 Patient Status: Inpatient Patient Location: [address] [place], [place] [id number] Study Date: 10/21/2018 11:01 AM Height: 69 in Weight: 221 lb BSA: 2.2 m2 Procedure: A two-dimensional transthoracic echocardiogram with color flow and Doppler was performed. The study was technically difficult with many images being suboptimal in quality. Reason For Study: acute pulmonary edema History: acute pulmonary edema. Ordering Physician: ZAIRE MILTON Performed By: Madhuri Gold Interpretation Summary The left ventricle is normal in size. There is normal left ventricular wall thickness. LV EF is 65% Left ventricular systolic function is normal. Doppler measurements suggest impaired left ventricular relaxation, which is associated with grade I/IV or mild diastolic dysfunction The left ventricular wall motion is normal. There is no thrombus. The right ventricle is not well visualized secondary to technical limitations Right atrium not well visualized secondary to technical limitations The left atrium is moderately dilated. There is no evidence of mitral valve prolapse. There is no mitral valve stenosis. There is no mitral regurgitation noted. There is no aortic valvular vegetation. There is mild aortic stenosis There is a peak gradient of 22 mm of Hg. There is no LVOT obstruction. No aortic regurgitation is present. There is no tricuspid stenosis. There is a trace amount of tricuspid regurgitation There is mild pulmonary hypertension by echo RVSP is 35 to 40 mmof Hg , with RA mean of 5 to 10. There is a trace amount of pulmonic regurgitation There is no pericardial effusion. MMode/2D Measurements & Calculations RVDd: 4.1 cm LVIDd: 5.5 cm FS: 37.0 % Ao root diam: 3.4 cm IVSd: 0.77 cm LVIDs: 3.5 cm EDV(Teich): 146.1 ml Ao root area: 9.1 cm2 LVPWd: 0.98 cm ESV(Teich): 49.3 ml EF(Teich): 66.3 % Doppler Measurements & Calculations MV E max tato: MV dec slope: Ao V2 max: LV V1 max P.8 cm/sec 513.6 cm/sec2 233.9 cm/sec 7.7 mmHg MV A max tato: MV dec time: Ao max PG: LV V1 mean P.4 cm/sec 0.20 sec 21.9 mmHg 4.4 mmHg MV E/A: 0.75 Ao V2 mean: LV V1 max: 176.0 cm/sec 138.1 cm/sec Ao mean PG: LV V1 mean: 13.9 mmHg 96.4 cm/sec Ao V2 VTI: 51.3 cm LV V1 VTI: 33.0 cm PA V2 max: TR max tato: 103.2 cm/sec 271.6 cm/sec PA max P.3 mmHg TR max P.6 mmHg Left Ventricle The left ventricle is normal in size. There is normal left ventricular wall thickness. LV EF is 65%. Left ventricular systolic function is normal. Doppler measurements suggest impaired left ventricular relaxation, which is associated with grade I/IV or mild diastolic dysfunction. The left ventricular wall motion is normal. There is no thrombus. Right Ventricle The right ventricle is not well visualized secondary to technical limitations. Atria Right atrium not well visualized secondary to technical limitations. The left atrium is moderately dilated. Mitral Valve There is mild mitral annular calcification. There is no evidence of mitral valve prolapse. There is no vegetation seen on the mitral valve. There is no mitral valve stenosis. There is no mitral regurgitation noted. Aortic Valve There is no aortic valvular vegetation. There is mild aortic stenosis. There is a peak gradient of 22 mm of Hg. There is no LVOT obstruction. No aortic regurgitation is present. Tricuspid Valve There is no tricuspid stenosis. There is a trace amount of tricuspid regurgitation. There is mild pulmonary hypertension by echo. RVSP is 35 to 40 mmof Hg , with RA mean of 5 to 10. Pulmonic Valve There is no pulmonic valvular stenosis. There is a trace amount of pulmonic regurgitation. Effusions There is no pericardial effusion. : ZAIRE MILTON > Tiffanie Palm
--- NOTE | 2018-10-21 20:42 | PDOC PROGRESS REPORT ---
Subjective Progress Note for:: 10/21/18 Subjective:: Patient was seen by the bedside, he is responding to the treatment, Solu-Medrol, bronchodilators Reason For Visit: COPD EXACERBATION Physical Exam Vital Signs: Temp Pulse Resp BP Pulse Ox 97.9 F 82 20 127/53 H 98 10/21/18 14:59 10/21/18 19:27 10/21/18 19:27 10/21/18 14:59 10/21/18 19:27 Intake & Output 10/20/18 10/21/18 10/22/18 06:59 06:59 06:59 Intake Total 743 537 1029 Output Total 800 Balance 595 568 3612 Weight 100.6 kg 101.5 kg General appearance: PRESENT: no acute distress Eye exam: PRESENT: PERRLA Respiratory exam: PRESENT: wheezes Cardiovascular exam: PRESENT: +S1, +S2 GI/Abdominal exam: PRESENT: soft Neurological exam: PRESENT: alert Results Laboratory Results: 10/19/18 21:40 10/19/18 21:40 10/19/18 21:40 Troponin I < 0.012 Impressions: Chest X-Ray 10/19/18 21:35 IMPRESSION: Interval improvement of pulmonary edema with small residual pleural effusions. Assessment & Plan - Diagnosis (1) Acute exacerbation of chronic obstructive pulmonary disease (COPD) Is this a current diagnosis for this admission?: Yes Plan: Continue IV Solu-Medrol, bronchodilators (2) Type 2 diabetes mellitus Qualifiers: Diabetes mellitus chcf insulin use: without intermediate accountant use Diabetes mellitus complication status: without complication Qualified Code(s): E11.9 - Type 2 diabetes mellitus without complications Is this a current diagnosis for this admission?: Yes
[2018-10-22] MEDS: IPRATROPIUM/ALBUTEROL 0.5-2.5 MG/3 ML AMPUL NEB SCH ×7 (00:18→23:47)
[2018-10-22] MEDS: METHYLPREDNISOLONE INJ 125 MG/2 ML SDV IV SCH ×3 (05:03→21:23)
[2018-10-22] MEDS: LANSOPRAZOLE 30 MG TAB.RAP.DR PO SCH (05:03)
[2018-10-22] MEDS: INSULIN LISPRO 100 UNIT/ML 3 ML VIAL SUBCUT SCH ×4 (08:09→21:23)
[2018-10-22] MEDS: AMLODIPINE BESYLATE 10 MG TABLET PO SCH (09:01)
[2018-10-22] MEDS: ASPIRIN 81 MG TABLET, ENT COATED PO SCH (09:01)
[2018-10-22] MEDS: METFORMIN HCL 500 MG TABLET PO SCH ×2 (09:01→17:49)
[2018-10-22] MEDS: FLUTICASONE/UMECLIDIN/VILANTER 100-62.5-25 MCG/DOSE IH SCH (09:01)
[2018-10-22] MEDS: ROFLUMILAST 500 MCG TABLET PO SCH (09:01)
--- NOTE | 2018-10-22 18:07 | PDOC PROGRESS REPORT ---
Subjective Progress Note for:: 10/22/18 Subjective:: Patient seen by the bedside, he continues to improve Reason For Visit: COPD EXACERBATION Physical Exam Vital Signs: Temp Pulse Resp BP Pulse Ox 97.6 F 92 24 H 131/66 H 100 10/22/18 16:28 10/22/18 16:28 10/22/18 16:28 10/22/18 16:28 10/22/18 16:28 Intake & Output 10/21/18 10/22/18 10/23/18 06:59 06:59 06:59 Intake Total 922 2112 713 Output Total 800 Balance 122 2112 713 Weight 101.5 kg 101.7 kg General appearance: PRESENT: no acute distress Eye exam: PRESENT: PERRLA Respiratory exam: PRESENT: clear to auscultation booker Cardiovascular exam: PRESENT: +S1, +S2 GI/Abdominal exam: PRESENT: soft Neurological exam: PRESENT: alert Results Laboratory Results: 10/19/18 21:40 10/19/18 21:40 10/19/18 21:40 Troponin I < 0.012 Impressions: Chest X-Ray 10/19/18 21:35 IMPRESSION: Interval improvement of pulmonary edema with small residual pleural effusions. Assessment & Plan - Diagnosis (1) Acute exacerbation of chronic obstructive pulmonary disease (COPD) Is this a current diagnosis for this admission?: Yes Plan: Continue IV Solu-Medrol, bronchodilators (2) Type 2 diabetes mellitus Qualifiers: Diabetes mellitus intermediate teacher insulin use: without intermediate teacher use Diabetes mellitus complication status: without complication Qualified Code(s): E11.9 - Type 2 diabetes mellitus without complications Is this a current diagnosis for this admission?: Yes Plan: continue treatment
[2018-10-23] MEDS: IPRATROPIUM/ALBUTEROL 0.5-2.5 MG/3 ML AMPUL NEB SCH ×6 (04:06→23:49)
[2018-10-23] MEDS: METHYLPREDNISOLONE INJ 125 MG/2 ML SDV IV SCH ×2 (05:04→14:20)
[2018-10-23] MEDS: LANSOPRAZOLE 30 MG TAB.RAP.DR PO SCH (05:04)
[2018-10-23] MEDS: INSULIN LISPRO 100 UNIT/ML 3 ML VIAL SUBCUT SCH ×4 (08:32→21:43)
[2018-10-23] MEDS: AMLODIPINE BESYLATE 10 MG TABLET PO SCH (09:19)
[2018-10-23] MEDS: METFORMIN HCL 500 MG TABLET PO SCH ×2 (09:19→17:05)
[2018-10-23] MEDS: ASPIRIN 81 MG TABLET, ENT COATED PO SCH (09:19)
[2018-10-23] MEDS: ROFLUMILAST 500 MCG TABLET PO SCH (09:19)
[2018-10-23] MEDS: FLUTICASONE/UMECLIDIN/VILANTER 100-62.5-25 MCG/DOSE IH SCH (09:20)
--- NOTE | 2018-10-23 20:16 | PDOC PROGRESS REPORT ---
Subjective Progress Note for:: 10/23/18 Subjective:: Patient seen by the bedside, improving Reason For Visit: COPD EXACERBATION Physical Exam Vital Signs: Temp Pulse Resp BP Pulse Ox 97.4 F 85 16 131/69 H 95 10/23/18 15:57 10/23/18 19:42 10/23/18 19:42 10/23/18 15:57 10/23/18 19:42 Intake & Output 10/22/18 10/23/18 10/24/18 06:59 06:59 06:59 Intake Total 2 1213 1357 Balance 2 1213 1357 Weight 101.7 kg 101.6 kg General appearance: PRESENT: no acute distress Eye exam: PRESENT: PERRLA Respiratory exam: PRESENT: rhonchi Cardiovascular exam: PRESENT: +S1, +S2 GI/Abdominal exam: PRESENT: soft Neurological exam: PRESENT: alert Results Laboratory Results: 10/19/18 21:40 10/19/18 21:40 10/19/18 21:40 Troponin I < 0.012 Impressions: Chest X-Ray 10/19/18 21:35 IMPRESSION: Interval improvement of pulmonary edema with small residual pleural effusions. Assessment & Plan - Diagnosis (1) Acute exacerbation of chronic obstructive pulmonary disease (COPD) Is this a current diagnosis for this admission?: Yes Plan: Discontinue Solu-Medrol, start prednisone (2) Type 2 diabetes mellitus Qualifiers: Diabetes mellitus group home insulin use: without terminal computer operator use Diabetes mellitus complication status: without complication Qualified Code(s): E11.9 - Type 2 diabetes mellitus without complications Is this a current diagnosis for this admission?: Yes
[2018-10-23] MEDS: PREDNISONE 20 MG TABLET PO SCH (21:43)
[2018-10-24] MEDS: IPRATROPIUM/ALBUTEROL 0.5-2.5 MG/3 ML AMPUL NEB SCH ×4 (04:17→15:47)
[2018-10-24] MEDS: LANSOPRAZOLE 30 MG TAB.RAP.DR PO SCH (05:26)
[2018-10-24] MEDS: INSULIN LISPRO 100 UNIT/ML 3 ML VIAL SUBCUT SCH ×3 (08:12→17:07)
[2018-10-24] MEDS: PREDNISONE 20 MG TABLET PO SCH (10:11)
[2018-10-24] MEDS: AMLODIPINE BESYLATE 10 MG TABLET PO SCH (10:11)
[2018-10-24] MEDS: METFORMIN HCL 500 MG TABLET PO SCH ×2 (10:11→17:09)
[2018-10-24] MEDS: ASPIRIN 81 MG TABLET, ENT COATED PO SCH (10:11)
[2018-10-24] MEDS: ROFLUMILAST 500 MCG TABLET PO SCH (10:11)
[2018-10-24] MEDS: FLUTICASONE/UMECLIDIN/VILANTER 100-62.5-25 MCG/DOSE IH SCH (10:12)
--- NOTE | 2018-10-24 17:45 | PDOC DISCHARGE SUMMARY ---
General - Admit/Disc Date/PCP Admission Date/Primary Care Provider: 10/19/18 22:50 ZAIRE MILTON MD Discharge Date: 10/24/18 - Discharge Diagnosis (1) Acute exacerbation of chronic obstructive pulmonary disease (COPD) Is this a current diagnosis for this admission?: Yes (2) Type 2 diabetes mellitus Is this a current diagnosis for this admission?: Yes - Additional Information Resuscitation Status: Full Code Home Medications: Albuterol Sulfate [Albuterol Sulfate Hfa] 2 puff IH Q4HP PRN 10/20/18 Amlodipine Besylate [Norvasc 10 mg Tablet] 10 mg PO DAILY 10/20/18 Aspirin [Adult Low Dose Aspirin EC] 81 mg PO DAILY 10/20/18 Fluticasone/Umeclidin/Vilanter [Trelegy 100-62.5-25 Mcg Ellipta 14 Dose/Dpi] 1 puff IH DAILY 10/20/18 Ipratropium/Albuterol Sulfate [Duoneb 3 ml Ampul] 3 ml NEB RTQ4HP PRN 10/20/18 Metformin HCl [Glucophage 500 mg Tablet] 500 mg PO BID 10/20/18 Pantoprazole Sodium [Protonix] 40 mg PO DAILY 10/20/18 Roflumilast [Daliresp 500 mcg Tablet] 500 mcg PO DAILY 10/20/18 Prednisone [Deltasone 20 mg Tablet] 40 mg PO DAILY #5 tablet 10/24/18 History of Present Illness History of Present Illness: ANDRE BATES is a 73 year old male, He has a history of very severe chronic obstructive pulmonary disease, chronic respiratory failure on home oxygen, type 2 diabetes mellitus, he presented to the emergency room for evaluation of acute respiratory distress. He was transferred by EMS to the hospital, the history was that EMS was called to his home because he was extremely short of breath, when EMS arrived he was very short of breath ,breathing about 40 times a minute he was treated with bronchodilators, the breathing was supported with a noninvasive positive pressure ventilation, CPAP and then transferred to the [facility] room for further evaluation. In the emergency room he was stabilized patient felt somewhat better but there was no complete resolution so, hospital admission was advised. He was admitted last month in this hospital for the same problem he was discharged on September 13, 2018 for acute COPD exacerbation associated with acute respiratory failure. Hospital Course Hospital Course: Patient was admitted for the management of acute COPD exacerbation, he was treated with IV Solu-Medrol 125 mg IV every 8 hours, bronchodilators with DuoNeb, oxygen via nasal cannula.He responded to treatment, he be discharged home today Physical Exam Vital Signs: Temp Pulse Resp BP Pulse Ox 97.5 F 84 16 134/67 H 95 10/24/18 15:37 10/24/18 15:47 10/24/18 15:47 10/24/18 15:37 10/24/18 15:47 Intake & Output 10/23/18 10/24/18 10/25/18 06:59 06:59 06:59 Intake Total 1213 2407 450 Output Total 3 Balance 1213 2404 450 Weight 101.6 kg 101.9 kg General appearance: PRESENT: no acute distress Eye exam: PRESENT: PERRLA Mouth exam: PRESENT: moist Neck exam: PRESENT: full ROM Respiratory exam: PRESENT: clear to auscultation booker Cardiovascular exam: PRESENT: RRR, +S1, +S2 Pulses: PRESENT: normal dorsalis pedis pul, +2 pedal pulses bilateral Vascular exam: PRESENT: normal capillary refill GI/Abdominal exam: PRESENT: normal bowel sounds, soft Rectal exam: PRESENT: deferred Neurological exam: PRESENT: alert Psychiatric exam: PRESENT: appropriate affect, normal mood Skin exam: PRESENT: dry, intact, warm Results Laboratory Results: 10/19/18 21:40 10/19/18 21:40 10/19/18 21:40 Troponin I < 0.012 Impressions: Chest X-Ray 10/19/18 21:35 IMPRESSION: Interval improvement of pulmonary edema with small residual pleural effusions. Qualifiers - * PATIENT BEING DISCHARGED WITH ANY OF THE FOLLOWING DIAGNOSIS: No
[2018-10-24 17:52] VITALS: BP 151/83
== END 2018-10-24 18:39 | disposition home or self-care (01) | DRG 191 ==
LOC: ER 21:28 → EH 22:50 → 3N 10-20 01:45
PROVIDERS: ADMIT Internal Medicine Geriatric Medicine; ATTEND Internal Medicine
PROC: 5A09357 Assistance with Respiratory Ventilation, Less than 24 Consecutive Hours, Continuous Positive Airway Pressure (ICD-10-PCS; principal; 2018-10-19)
DX: J44.1 Chronic obstructive pulmonary disease with (acute) exacerbation (principal); J96.10 Chronic respiratory failure, unspecified whether with hypoxia or hypercapnia; I10 Essential (primary) hypertension; E11.9 Type 2 diabetes mellitus without complications; E78.5 Hyperlipidemia, unspecified; K21.9 Gastro-esophageal reflux disease without esophagitis; M19.90 Unspecified osteoarthritis, unspecified site; Z86.14 Personal history of Methicillin resistant Staphylococcus aureus infection; F17.210 Nicotine dependence, cigarettes, uncomplicated; Z99.81 Dependence on supplemental oxygen
CPT/HCPCS: 36415; 71045; 80048; 82803; 82962; 84484; 85025; 87804; 93005; 93010; 93306; 94640; 94660; 99291; J1815; J2930; J3490; J7512; J7620

== ENCOUNTER 2018-11-09 14:29 | Emergency (ER) | payer MEDICARE, MEDICAID ==
[2018-11-09] MEDS ORDERED: IPRATROPIUM/ALBUTEROL 0.5-2.5 MG/3 ML AMPUL NEB ONE (14:48)
--- NOTE | 2018-11-09 14:49 | ER Document Report ---
ED Medical Screen (RME) - General Chief Complaint: Shortness Of Breath Stated Complaint: MID BACK PAIN Time Seen by Provider: 11/09/18 14:47 Primary Care Provider: ZAIRE MILTON MD [Primary Care Provider] - Follow up as needed Mode of Arrival: Medic Information source: Patient TRAVEL OUTSIDE OF THE [place] IN LAST 30 DAYS: No - HPI Patient complains to provider of: L flank pain Onset: This afternoon - pt with copd and asthma with onset of L flank and LBP while laying in bed earlier this morning - Related Data Allergies/Adverse Reactions: bee venom protein (honey bee) Allergy (Verified 11/09/18 14:46) Past Medical History - Past Medical History Cardiac Medical History: Reports: Hx Hypercholesterolemia, Hx Hypertension Pulmonary Medical History: Reports: Hx Asthma, Hx COPD Endocrine Medical History: Reports: Hx Diabetes Mellitus Type 2 Renal/ Medical History: Denies: Hx Peritoneal Dialysis GI Medical History: Reports: Hx Gastroesophageal Reflux Disease, Hx Colonoscopy Musculoskeltal Medical History: Reports Hx Arthritis Skin Medical History: Reports Hx MRSA Psychiatric Medical History: Denies: Hx Depression Infectious Medical History: Reports: Hx MRSA Past Surgical History: Reports: Hx Abdominal Surgery - Hernia Repair, Hx Genitourinary Surgery - SCRUTAL FLUID DRAINED, Hx Herniorrhaphy - Left, Hx Inguinal Hernia - Immunizations Hx Diphtheria, Pertussis, Tetanus Vaccination: Yes History of Influenza Vaccine for 06/2017 - 10/2017 Season: Yes Influenza Administration Date for 06/2017 - 10/2017 Season: 06/02/17 Physical Exam - Vital signs Vitals: Temp Pulse Resp BP Pulse Ox 98.8 F 122 H 36 H 133/79 H 95 11/09/18 14:40 11/09/18 14:40 11/09/18 14:40 11/09/18 14:40 11/09/18 14:40 Course - Vital Signs Vital signs: Temp Pulse Resp BP Pulse Ox 98.8 F 122 H 36 H 133/79 H 95 11/09/18 14:40 11/09/18 14:40 11/09/18 14:40 11/09/18 14:40 11/09/18 14:40 Doctor's Discharge - Discharge Referrals: ZAIRE MILTON MD [Primary Care Provider] - Follow up as needed
--- NOTE | 2018-11-09 15:46 | RADIOLOGY REPORT (SQ) ---
EXAM DESCRIPTION: CT ABD/PELVIS NO ORAL OR IV COMPLETED DATE/TIME: 11/09/2018 3:27 pm REASON FOR STUDY: L LBP . Left flank pain. COMPARISON: CT chest 02/08/2016, 07/26/2017, 06/20/2018. TECHNIQUE: CT scan of the abdomen and pelvis performed without intravenous or oral contrast. Images reviewed with lung, soft tissue, and bone windows. Reconstructed coronal and sagittal MPR images revi ewed. All images stored on PACS. All CT scanners at this facility use dose modulation, iterative reconstruction, and/or weight based d osing when appropriate to reduce radiation dose to as low as reasonably achievable (ALARA). [facility]: Dose Right [facility]: CareDose [facility]: Dose Right [facility]: Teradose 4D [facility]: Smart Technologies RADIATION DOSE: CT Rad equipment meets quality standard of care and radiation dose reduction techniq ues were employed. CTDIvol: 17.6 mGy. DLP: 1023 mGy-cm.mGy. LIMITATIONS: None. FINDINGS: LOWER CHEST: There is bronchiectasis at the visualized lung bases. Airspace opacities ar e noted at the bilateral lower lobes. No sizable pleural effusion. Coronary arteries calcifications are present. NON-CONTRASTED LIVER, SPLEEN, ADRENALS: Evaluation limited by lack of IV contrast. No identified sign ificant masses. PANCREAS: No peripancreatic inflammatory changes. GALLBLADDER: There is cholelithiasis. RIGHT KIDNEY AND URETER: Assessment for masses limited by lack of IV contrast. No significant calci fications. No hydronephrosis or hydroureter. LEFT KIDNEY AND URETER: Assessment for masses limited by lack of IV contrast. No significant calcif ications. No hydronephrosis or hydroureter. AORTA AND RETROPERITONEUM: Atherosclerotic calcifications in the abdominal aorta and its branches. N o abdominal aortic aneurysm. No retroperitoneal masses or hemorrhage. BOWEL AND PERITONEAL CAVITY: No dilated bowel loops or inflammatory changes. No free fluid. APPENDIX: Not visualized. PELVIS, BLADDER, AND ABDOMINAL WALL:The prostate gland measures 5 cm in transverse diameter. No free fluid. Distended urinary bladder with a trabeculated contour. Moderate-sized fat containing umbilical hernia. The hernia neck measures approximately 3 cm. There are small fat containing bilateral inguinal hernias. BONES: Multilevel degenerative changes at the spine. IMPRESSION: 1.No urinary tract calculi or hydronephrosis. 2. Distended urinary bladder with a trabeculated contour, please correlate for chronic outlet obstruc tion. 3. Moderate size fat-containing umbilical hernia. 4. Cholelithiasis. 5. Coronary arteries calcifications. 6. Bronchiectasis. Airspace opacities at the bilateral lower lobes, may be secondary to pneumonia. COMMENT: Quality ID # [id number]: Final reports with documentation of one or more dose reduction techniques (e.g., Automated exposure control, adjustment of the mA and/or kV according to patient size, use of iterative reconstruction technique) TECHNICAL DOCUMENTATION: JOB ID: [id number] [place]-64 2010 [email or web address]- All Rights Reserved Reading location - IP/workstation name: [email or web address]
[2018-11-09 15:48] LABS: HEMATOCRIT 50.7 % (37.9-51.0); HEMOGLOBIN 17.7 g/dL (13.5-17.0); MEAN CORPUSCULAR VOLUME 94 fl (80-97); PLATELET COUNT 221 10^3/uL (150-450); RED BLOOD COUNT 5.37 10^6/uL (4.35-5.55); RED CELL DISTRIBUTION WIDTH 15.1 % (11.5-14.0); WHITE BLOOD COUNT 12.5 10^3/uL (4.0-10.5)
[2018-11-09 16:01] LABS: ALANINE AMINOTRANSFERASE 26 U/L (21-72); ALBUMIN 4.2 g/dL (3.5-5.0); ALKALINE PHOSPHATASE 61 U/L (38-126); ANION GAP 14 (5-19); ASPARTATE AMINO TRANSFERASE 20 U/L (17-59); BILIRUBIN,DIRECT 0.6 mg/dL (0.0-0.4); BILIRUBIN,TOTAL 2.9 mg/dL (0.2-1.3); BLOOD UREA NITROGEN 14 mg/dL (7-20); CALCIUM 9.7 mg/dL (8.4-10.2); CARBON DIOXIDE 24 mmol/L (22-30); CHLORIDE 94 mmol/L (98-107); GLUCOSE 123 mg/dL (75-110); POTASSIUM 4.6 mmol/L (3.6-5.0); SODIUM 132.1 mmol/L (137-145); TOTAL PROTEIN 7.5 g/dL (6.3-8.2)
[2018-11-09] MEDS ORDERED: MORPHINE SULFATE 10 MG/ML INJ IV ONE (16:11)
[2018-11-09] MEDS ORDERED: ALBUTEROL SULFATE 0.083% NEB 2.5 MG/3 ML AMPUL NEB ONE (16:11)
[2018-11-09] MEDS ORDERED: LEVOFLOXACIN 500 MG/D5W RTU 500 MG/100 ML RTUPB IV SCH (16:30)
[2018-11-09 17:44] LABS: APPEARANCE,URINE CLEAR; BILIRUBIN,URINE NEGATIVE (NEGATIVE); COLOR,URINE AMBER; GLUCOSE, URINE NEGATIVE (NEGATIVE); KETONES,URINE 20 mg/dL (NEGATIVE); LEUKOCYTE ESTERASE,URINE NEGATIVE (NEGATIVE); NITRITE,URINE NEGATIVE (NEGATIVE); PROTEIN,URINE NEGATIVE (NEGATIVE); URINE SPECIFIC GRAVITY 1.016
[2018-11-09] MEDS ORDERED: LIDOCAINE 5% (700 MG) TRANSDERMAL ADH..PATCH TP ONE (18:02)
--- NOTE | 2018-11-09 18:02 | ER Document Report ---
ED General - General Chief Complaint: Shortness Of Breath Stated Complaint: MID BACK PAIN Time Seen by Provider: 11/09/18 14:47 Primary Care Provider: ZAIRE MILTON MD [Primary Care Provider] - Follow up as needed Mode of Arrival: Medic Information source: Patient Notes: Pt is a 73 year old male with a history of COPD who presents to the ER today for left flank pain and sob wheezing. Pt states he's had back pain before, denies injury, denies buring with urination but does admit to hesitancy in urinating. Denies history of kidney stones. States he has been coughing a little more lately, denies fever, chills, sickness otherwise. denies n/v/d. TRAVEL OUTSIDE OF THE [place] IN LAST 30 DAYS: No - Related Data Allergies/Adverse Reactions: bee venom protein (honey bee) Allergy (Verified 11/09/18 14:46) Past Medical History - General Information source: Patient - Social History Smoking Status: Former Smoker Family History: Reviewed & Not Pertinent, Arthritis, CVA, DM, Hypertension, Thyroid Disfunction Patient has suicidal ideation: No Patient has homicidal ideation: No - Past Medical History Cardiac Medical History: Reports: Hx Hypercholesterolemia, Hx Hypertension Pulmonary Medical History: Reports: Hx Asthma, Hx COPD Endocrine Medical History: Reports: Hx Diabetes Mellitus Type 2 Renal/ Medical History: Denies: Hx Peritoneal Dialysis GI Medical History: Reports: Hx Gastroesophageal Reflux Disease, Hx Colonoscopy Musculoskeletal Medical History: Reports Hx Arthritis Skin Medical History: Reports Hx MRSA Psychiatric Medical History: Denies: Hx Depression Infectious Medical History: Reports: Hx MRSA Past Surgical History: Reports: Hx Abdominal Surgery - Hernia Repair, Hx Genitourinary Surgery - SCRUTAL FLUID DRAINED, Hx Herniorrhaphy - Left, Hx Inguinal Hernia - Immunizations Hx Diphtheria, Pertussis, Tetanus Vaccination: Yes Hx Pneumococcal Vaccination: 09/02/11 Review of Systems - Review of Systems Constitutional: No symptoms reported EENT: No symptoms reported Cardiovascular: No symptoms reported Respiratory: See HPI Gastrointestinal: No symptoms reported Genitourinary: See HPI Male Genitourinary: No symptoms reported Musculoskeletal: See HPI Skin: No symptoms reported Hematologic/Lymphatic: No symptoms reported Neurological/Psychological: No symptoms reported Physical Exam - Vital signs Vitals: Temp Pulse Resp BP Pulse Ox 98.8 F 122 H 36 H 133/79 H 95 03/10/19 14:40 11/09/18 14:40 11/09/18 14:40 11/09/18 14:40 11/09/18 14:40 - Notes Notes: PHYSICAL EXAMINATION: GENERAL: appears short of breath, in mild acute respiratory distress. HEAD: Atraumatic, normocephalic. EYES: Pupils equal round and reactive to light, extraocular movements intact, sclera anicteric, conjunctiva are normal. ENT: airway patent, ear canals without erythema or foreign body, TMs pearly kessler with good bony landmarks, nares patent, oropharynx clear without exudates. Moist mucous membranes. NECK: Normal range of motion, supple without lymphadenopathy LUNGS: mild expiratory wheezes, no rales or rhonchi. HEART: tachycardic with regular rhythm without murmurs ABDOMEN: Soft, no tenderness. No guarding, no rebound BACK: no vertebral tenderness, normal ROM GI/: no CVA tenderness EXTREMITIES: Normal range of motion, no pitting edema. No cyanosis. NEUROLOGICAL: Cranial nerves grossly intact. Normal sensory/motor exams. PSYCH: Normal mood, normal affect. SKIN: Warm, Dry, normal turgor, no rashes or lesions noted Course - Re-evaluation Re-evalutation: 11/09/18 23:20 pt has a WBC of 12.5, possible pneumonia vs atelectasis on cxr, doing much better after albuterol/duoneb and steroids IM. pt has no flank tenderness, urinalyiss negative for infection, abd/pelvis CT ordered in triage by Dr. Rene does not reveal any acute pathology (I did not order this test). Will treat pt with abx to cover for pneumonia as he does have an elevated WBC and placed lidoderm patch on him for back pain. He is having no abdominal pain, bilirubin is 2.9, but he has no tenderness to RUQ or even LUQ, came in for left lower back pain and CT is negative for cholecystitis. Pt came in tachycardic at 122bpm and tachypneic, on discharge is not sob at all and had a normal heart rate and respiratory rate of 16. Pt also sent home with another albuterol inhaler, to follow up with pcp. - Vital Signs Vital signs: Temp Pulse Resp BP Pulse Ox 98.7 F 98 16 136/72 H 100 11/09/18 18:31 11/09/18 18:31 11/09/18 18:31 11/09/18 18:31 11/09/18 18:31 - Laboratory Result Diagrams: 11/09/18 15:40 11/09/18 15:40 Laboratory results interpreted by me: 11/09/18 11/09/18 11/09/18 15:40 15:40 17:09 WBC 12.5 H Hgb 17.7 H RDW 15.1 H Sodium 132.1 L Chloride 94 L Glucose 123 H Total Bilirubin 2.9 H Direct Bilirubin 0.6 H Urine Ketones 20 H Urine Blood SMALL H Urine Urobilinogen 4.0 H Critical Care Note - Critical Care Note Total time excluding time spent on procedures (mins): 35 - 35___ minutes spent in critical care time with patient, consulted with attending, speaking with family, placing orders and evaluating tests and labs. Discharge - Discharge Clinical Impression: Pneumonia Qualifiers: Pneumonia type: due to unspecified organism Laterality: bilateral Lung location: lower lobe of lung Qualified Code(s): J18.1 - Lobar pneumonia, unspecified organism Back pain Qualifiers: Back pain location: low back pain Chronicity: acute Back pain laterality: left Sciatica presence: without sciatica Qualified Code(s): M54.5 - Low back pain Condition: Stable Disposition: HOME, SELF-CARE Instructions: Pneumonia ([facility]) Additional Instructions: Return immediately for any new or worsening symptoms. Follow up with primary care provider, call tomorrow to make followup appoi ntment. Prescriptions: Albuterol Sulfate [Albuterol Sulfate Hfa] 8.5 gm IH Q4H PRN #1 hfa.aer.ad PRN Reason: Azithromycin [Zithromax 250 mg Tablet] 250 mg PO ASDIR PRN #6 tablet PRN Reason: Prednisone 10 mg PO DAILY #1 tab.ds.pk Referrals: ZAIRE MILTON MD [Primary Care Provider] - Follow up as needed
[2018-11-09 18:34] VITALS: BP 136/72
== END 2018-11-09 18:33 | disposition home or self-care (01) ==
LOC: ER 14:29
DX: J18.1 Lobar pneumonia, unspecified organism (principal); J44.0 Chronic obstructive pulmonary disease with (acute) lower respiratory infection; M54.5 Low back pain; R06.02 Shortness of breath; M54.9 Dorsalgia, unspecified; R10.9 Unspecified abdominal pain; R05 Cough; Z87.891 Personal history of nicotine dependence; I10 Essential (primary) hypertension; E11.9 Type 2 diabetes mellitus without complications
CPT/HCPCS: 94640 ×2; 99285; 96375; 96365; 96366; 36415; 87040; 85027; 80053; 81001; 74176; J1956; J2270; A9270 ×2; J7620

== ENCOUNTER 2018-11-18 20:47 | Inpatient (IN) | payer MEDICARE, MEDICAID ==
[2018-11-18] MEDS ORDERED: CEFTRIAXONE 1 GM/D5W RTU 1 GM/50 ML RTUPB IV ONE (20:59)
[2018-11-18] MEDS ORDERED: IPRATROPIUM/ALBUTEROL 0.5-2.5 MG/3 ML AMPUL NEB ONE ×2 (20:59→21:50)
[2018-11-18] MEDS ORDERED: DOXYCYCLINE HYCLATE INJ 100 MG VIAL IV ONE (20:59)
[2018-11-18] MEDS ORDERED: NORMAL SALINE 1000 ML 1,000 ML IV ONE ×2 (21:00→21:57)
[2018-11-18] MEDS: ALBUTEROL SULFATE 0.083% NEB 2.5 MG/3 ML AMPUL NEB SCH ×2 (21:05→21:30)
--- NOTE | 2018-11-18 21:06 | ER Document Report ---
ED Respiratory Problem - General Stated Complaint: CHEST PAIN Time Seen by Provider: 11/18/18 20:59 Primary Care Provider: ZAIRE MILTON MD [Primary Care Provider] - Follow up as needed Mode of Arrival: Stretcher Information source: Patient, Emergency Med Personnel TRAVEL OUTSIDE OF THE [place] IN LAST 30 DAYS: No - HPI Patient complains to provider of: COPD, Cough, Short of breath Onset: This afternoon Duration: Worse/persistent Quality of pain: No pain Severity: Severe Context: Hx COPD Short of Breath: Severe Chest pain/discomfort: Tightness Cough: Nonproductive Associated symptoms: Cough, Short of breath, Wheezing Similar symptoms previously: Yes Recently seen / treated by doctor: Yes Notes: Patient is a 73-year-old male with a history of COPD, former smoker, presenting to the emergency room via EMS in [facility] with tachypnea, wheezing in all hua, and a fever as well as tachycardia, EMS reports patient was in A. fib with RVR at 160 so they gave Cardizem in route as well as multiple breathing treatments and Tylenol for his fever, patient does have a history of atrial fibrillation, he reports chest tightness but no chest pain, and a nonproductive cough, he was recently seen in this department approximately 9 days ago for back pain thinking he had a kidney stone and the CT scan showed a small amount of bilateral lower lobe opacities consistent with likely pneumonia, he was treated with a Z-Marco - Related Data Allergies/Adverse Reactions: bee venom protein (honey bee) Allergy (Verified 11/18/18 21:48) cat dander Allergy (Verified 11/18/18 21:48) Past Medical History - General Information source: Patient - Social History Smoking Status: Former Smoker Family History: Reviewed & Not Pertinent, Arthritis, CVA, DM, Hypertension, Thyr oid Disfunction - Past Medical History Cardiac Medical History: Reports: Hx Hypercholesterolemia, Hx Hypertension Pulmonary Medical History: Reports: Hx Asthma, Hx COPD Endocrine Medical History: Reports: Hx Diabetes Mellitus Type 2 Renal/ Medical History: Denies: Hx Peritoneal Dialysis GI Medical History: Reports: Hx Gastroesophageal Reflux Disease, Hx Colonoscopy Musculoskeletal Medical History: Reports Hx Arthritis Skin Medical History: Reports Hx MRSA Psychiatric Medical History: Denies: Hx Depression Infectious Medical History: Reports: Hx MRSA Past Surgical History: Reports: Hx Abdominal Surgery - Hernia Repair, Hx Gen itourinary Surgery - SCRUTAL FLUID DRAINED, Hx Herniorrhaphy - Left, Hx Inguinal Hernia - Immunizations Hx Diphtheria, Pertussis, Tetanus Vaccination: Yes Hx Pneumococcal Vaccination: 09/02/11 Review of Systems - Review of Systems Constitutional: No symptoms reported EENT: No symptoms reported Cardiovascular: See HPI Respiratory: See HPI Gastrointestinal: No symptoms reported Genitourinary: No symptoms reported Male Genitourinary: No symptoms reported Musculoskeletal: No symptoms reported Skin: No symptoms reported Hematologic/Lymphatic: No symptoms reported Neurological/Psychological: No symptoms reported -: Yes All other systems reviewed and negative Physical Exam - Vital signs Vitals: Temp Pulse Resp BP Pulse Ox 99 F 143 H 29 H 140/56 H 94 11/18/18 20:50 11/18/18 20:50 11/18/18 20:50 11/18/18 20:50 11/18/18 20:50 Interpretation: Tachycardic, Tachypneic - General General appearance: Alert In distress: Moderate - HEENT Head: Normocephalic, Atraumatic Eyes: Normal Conjunctiva: Normal Extraocular movements intact: Yes Eyelashes: Normal Pupils: PERRL - Respiratory Respiratory status: Respiratory distress, Labored, Tachypnea Chest status: Nontender Breath sounds: Nonproductive cough, Rhonchi, Wheezing Chest palpation: Normal - Cardiovascular Rhythm: Regular Heart sounds: Normal auscultation Murmur: No - Abdominal Inspection: Normal Distension: No distension Bowel sounds: Normal Tenderness: Nontender Organomegaly: No organomegaly - Back Back: Normal, Nontender - Extremities General upper extremity: Normal inspection, Nontender, Normal color, Normal ROM, Normal temperature General lower extremity: Normal inspection, Nontender, Normal color, Normal ROM, Normal temperature, Normal weight bearing. No: Bonnie's sign - Neurological Neuro grossly intact: Yes Cognition: Normal Orientation: AAOx4 [place] Coma Scale Eye Opening: Spontaneous [place] Coma Scale Verbal: Oriented [place] Coma Scale Motor: Obeys Commands [place] Coma Scale Total: 15 Speech: Normal Motor strength normal: LUE, RUE, LLE, RLE Sensory: Normal - Psychological Associated symptoms: Normal affect, Normal mood - Skin Skin Temperature: Warm Skin Moisture: Dry Skin Color: Normal Course - Re-evaluation Re-evalutation: 11/18/18 22:11 Patient discussed with primary care provider, Dr. Milton who agrees to admit to the [facility] for further evaluation and treatment - Vital Signs Vital signs: Temp Pulse Resp BP Pulse Ox 99 F 143 H 28 H 140/56 H 95 11/18/18 20:50 11/18/18 20:50 11/18/18 21:00 11/18/18 20:50 11/18/18 21:00 - Laboratory Result Diagrams: 11/18/18 21:04 11/18/18 21:04 Laboratory results interpreted by me: 11/18/18 11/18/18 21:04 21:04 WBC 19.6 H RDW 15.1 H Plt Count 521 H Band Neutrophils % 2 L Metamyelocytes % 1 H Abs Neuts (Manual) 12.5 H Abs Monocytes (Manual) 2.5 H Sodium 131.7 L Glucose 122 H Albumin 3.4 L - Diagnostic Test Radiology reviewed: Image reviewed, Reports reviewed - EKG Interpretation by Me EKG shows normal: Sinus rhythm Rate: Tachycardia Discharge - Discharge Clinical Impression: COPD exacerbation, Pneumonia Condition: Serious Disposition: ADMITTED INPATIENT Admitting Provider: Yoel Unit Admitted: [facility] Referrals: ZAIRE MILTON MD [Primary Care Provider] - Follow up as needed
[2018-11-18 21:30] LABS: HEMATOCRIT 45.1 % (37.9-51.0); HEMOGLOBIN 15.6 g/dL (13.5-17.0); MEAN CORPUSCULAR HEMOGLOBIN 32.4 pg (27.0-33.4); MEAN CORPUSCULAR HGB CONC 34.5 g/dL (32.0-36.0); MEAN CORPUSCULAR VOLUME 94 fl (80-97); PLATELET COUNT 521 10^3/uL (150-450); RED CELL DISTRIBUTION WIDTH 15.1 % (11.5-14.0); WHITE BLOOD COUNT 19.6 10^3/uL (4.0-10.5)
--- NOTE | 2018-11-18 21:47 | RADIOLOGY REPORT (SQ) ---
EXAM DESCRIPTION: XR CHEST 1 VIEW COMPLETED DATE/TME: 11/18/2018 20:59 CLINICAL HISTORY: 73 years, Male, sob Findings: Heart is borderline enlarged. No consolidation. Small left pleural effusion. No pulmonary edema or pneumothorax. Mild bibasilar atelectatic changes. IMPRESSION: Small left pleural effusion. Findings otherwise similar to the prior study.
[2018-11-18 21:49] LABS: ABSOLUTE LYMPHOCYTES# (MANUAL) 4.3 10^3/uL (0.5-4.7); ABSOLUTE MONOCYTES # (MANUAL) 2.5 10^3/uL (0.1-1.4); ABSOLUTE NEUTROPHILS# (MANUAL) 12.5 10^3/uL (1.7-8.2); ANISOCYTOSIS SLIGHT; BAND NEUTROPHILS % (MANUAL) 2 % (3-5); BASOPHILS % (MANUAL) 1 % (0-2); EOSINOPHILS % (MANUAL) 0 % (0-6); LYMPHOCYTES % (MANUAL) 22 % (13-45); METAMYELOCYTES % (MANUAL) 1 % (0); MONOCYTES % (MANUAL) 13 % (3-13); SEGMENTED NEUTROPHILS % (MAN) 61 % (42-78); TOTAL CELLS COUNTED 100; TOXIC GRANULATION SLIGHT; TOXIC VACUOLATION PRESENT
[2018-11-18 21:50] LABS: PLATELET COMMENT INCREASED; POIKILOCYTOSIS SLIGHT
[2018-11-18] MEDS ORDERED: ALBUTEROL SULFATE 0.083% NEB 2.5 MG/3 ML AMPUL NEB ONE (21:50)
[2018-11-18 21:54] LABS: ALANINE AMINOTRANSFERASE 48 U/L (21-72); ALBUMIN 3.4 g/dL (3.5-5.0); ALKALINE PHOSPHATASE 59 U/L (38-126); ANION GAP 10 (5-19); ASPARTATE AMINO TRANSFERASE 22 U/L (17-59); BILIRUBIN,DIRECT 0.3 mg/dL (0.0-0.4); BILIRUBIN,TOTAL 0.9 mg/dL (0.2-1.3); BLOOD UREA NITROGEN 14 mg/dL (7-20); CALCIUM 9.3 mg/dL (8.4-10.2); CARBON DIOXIDE 24 mmol/L (22-30); CHLORIDE 98 mmol/L (98-107); GLUCOSE 122 mg/dL (75-110); POTASSIUM 3.7 mmol/L (3.6-5.0); SODIUM 131.7 mmol/L (137-145); TOTAL PROTEIN 6.5 g/dL (6.3-8.2)
[2018-11-18] MEDS ORDERED: IBUPROFEN 800 MG TABLET PO ONE (21:57)
[2018-11-18 22:06] LABS: TROPONIN I 0.015 ng/mL
[2018-11-18 22:08] LABS: A TYPE INFLUENZA AG NEGATIVE (NEGATIVE); B INFLUENZA AG NEGATIVE (NEGATIVE)
[2018-11-18] MEDS ORDERED: METFORMIN HCL 500 MG TABLET PO ONE (23:00)
[2018-11-18] MEDS ORDERED: LEVOFLOXACIN 750 MG/D5W RTU 750 MG/150 ML RTUPB IV ONE (23:00)
[2018-11-18] MEDS ORDERED: ALBUTEROL SULFATE HFA (90 MCG/PUFF) 8 GM MDI (1 MDI/ER DISP) IH PRN (23:21)
[2018-11-18] MEDS ORDERED: NORMAL SALINE 1000 ML 1,000 ML IV PRN (23:23)
[2018-11-18] MEDS ORDERED: LEVALBUTEROL HCL NEB 0.63 MG/3 ML AMPUL NEB PRN (23:23)
[2018-11-18] MEDS ORDERED: (PENDING PHARMACY ID) (Roflumilast [Daliresp 500 Mcg Tablet] 500 MCG) PO SCH (23:30)
[2018-11-18] MEDS ORDERED: CEFEPIME 2 GM/D5W RTU 2 GM/50 ML RTUPB IV ONE (23:45)
[2018-11-18] MEDS ORDERED: ENOXAPARIN SODIUM INJ 40 MG/0.4 ML DISP.SYRIN SUBCUT ONE (23:45)
[2018-11-18] MEDS ORDERED: CEFEPIME INJ 2 GM VIAL IV PRN (23:53)
--- NOTE | 2018-11-18 23:58 | EKG REPORT ---
SEVERITY:- ABNORMAL ECG - SINUS TACHYCARDIA VENTRICULAR PREMATURE COMPLEX LEFT AXIS DEVIATION ABNRM R PROG, CONSIDER ASMI OR LEAD PLACEMENT BORDERLINE T ABNORMALITIES, LATERAL LEADS : Confirmed by: Deborah Tracy 18-Nov-2018 23:58:02
[2018-11-19 00:15] LABS: CREATINE KINASE MB 1.73 ng/mL (<4.55)
[2018-11-19 00:17] LABS: TROPONIN I < 0.012 ng/mL
[2018-11-19] MEDS ORDERED: METFORMIN HCL 500 MG TABLET PO ONE (01:30)
[2018-11-19] MEDS: PANTOPRAZOLE SODIUM 40 MG TABLET.DR PO SCH (05:49)
[2018-11-19 08:49] LABS: APPEARANCE,URINE CLEAR; BILIRUBIN,URINE NEGATIVE (NEGATIVE); COLOR,URINE YELLOW; GLUCOSE, URINE 50 mg/dL (NEGATIVE); KETONES,URINE NEGATIVE (NEGATIVE); LEUKOCYTE ESTERASE,URINE NEGATIVE (NEGATIVE); NITRITE,URINE NEGATIVE (NEGATIVE); PROTEIN,URINE NEGATIVE (NEGATIVE); URINE SPECIFIC GRAVITY 1.011; UROBILINOGEN,URINE NEGATIVE mg/dL (<2.0)
[2018-11-19] MEDS: IPRATROPIUM/ALBUTEROL 0.5-2.5 MG/3 ML AMPUL NEB PRN (09:26)
[2018-11-19 09:34] LABS: HEMATOCRIT 43.3 % (37.9-51.0); HEMOGLOBIN 14.8 g/dL (13.5-17.0); MEAN CORPUSCULAR HEMOGLOBIN 32.1 pg (27.0-33.4); MEAN CORPUSCULAR HGB CONC 34.1 g/dL (32.0-36.0); MEAN CORPUSCULAR VOLUME 94 fl (80-97); WHITE BLOOD COUNT 22.3 10^3/uL (4.0-10.5)
[2018-11-19 09:51] LABS: ALANINE AMINOTRANSFERASE 30 U/L (21-72); ALBUMIN 3.3 g/dL (3.5-5.0); ALKALINE PHOSPHATASE 51 U/L (38-126); ANION GAP 12 (5-19); ASPARTATE AMINO TRANSFERASE 19 U/L (17-59); BILIRUBIN,DIRECT 0.3 mg/dL (0.0-0.4); BILIRUBIN,TOTAL 0.6 mg/dL (0.2-1.3); BLOOD UREA NITROGEN 15 mg/dL (7-20); CALCIUM 8.9 mg/dL (8.4-10.2); CARBON DIOXIDE 23 mmol/L (22-30); CHLORIDE 102 mmol/L (98-107); GLUCOSE 152 mg/dL (75-110); POTASSIUM 4.1 mmol/L (3.6-5.0); SODIUM 136.8 mmol/L (137-145); TOTAL PROTEIN 6.3 g/dL (6.3-8.2)
[2018-11-19 10:01] LABS: ABSOLUTE LYMPHOCYTES# (MANUAL) 0.7 10^3/uL (0.5-4.7); ABSOLUTE MONOCYTES # (MANUAL) 1.3 10^3/uL (0.1-1.4); ABSOLUTE NEUTROPHILS# (MANUAL) 20.3 10^3/uL (1.7-8.2); BAND NEUTROPHILS % (MANUAL) 3 % (3-5); BASOPHILS % (MANUAL) 0 % (0-2); EOSINOPHILS % (MANUAL) 0 % (0-6); LYMPHOCYTES % (MANUAL) 2 % (13-45); MONOCYTES % (MANUAL) 6 % (3-13); SEGMENTED NEUTROPHILS % (MAN) 88 % (42-78); TOTAL CELLS COUNTED 100
[2018-11-19 10:02] LABS: ANISOCYTOSIS SLIGHT; PLATELET CLUMPS PRESENT; PLATELET COMMENT ADEQUATE; PLATELET COUNT 434 10^3/uL (150-450); TOXIC GRANULATION 1+; TOXIC VACUOLATION PRESENT
[2018-11-19] MEDS: ASPIRIN 81 MG TABLET, ENT COATED PO SCH (10:24)
[2018-11-19] MEDS: AMLODIPINE BESYLATE 10 MG TABLET PO SCH (10:24)
[2018-11-19] MEDS: METFORMIN HCL 500 MG TABLET PO SCH ×2 (10:24→18:40)
[2018-11-19] MEDS: ROFLUMILAST 500 MCG TABLET PO SCH (10:24)
[2018-11-19] MEDS: FLUTICASONE/UMECLIDIN/VILANTER 100-62.5-25 MCG/DOSE IH SCH (10:25)
[2018-11-19] MEDS: CEFEPIME 2 GM/D5W RTU 2 GM/50 ML RTUPB IV SCH ×2 (10:25→21:18)
--- NOTE | 2018-11-19 16:48 | PDOC H&P ---
History of Present Illness Admission Date/PCP: 11/18/18 22:21 ZAIRE MILTON MD History of Present Illness: ANDRE BATES is a 73 year old male, Patient is well-known to me he has h istory of end-stage chronic obstructive lung disease with multiple hospitalization for acute exacerbation despite taking optimal medical therapy for COPD. He was brought to the emergency room for evaluation of shortness of breath, wheezing, fever, in the emergency room was evaluated, it was felt that he has pneumonia. He was in the emergency room 9 days ago for evaluation of abdominal pain/flank pain he thought he had a kidney stone, at that time a CAT scan of the abdomen and pelvis was done without contrast on that evaluation he was also diagnosed with pneumonia in the lower lobe of the lung, he was prescribed Z-Marco. In the emergency room he was in respiratory distress, he required noninvasive positive pressure ventilation with BiPAP to support breathing. The ED physician felt patient needed to be admitted for further evaluation and management. Past Medical History Cardiac Medical History: Reports: Hyperlipidema, Hypertension Pulmonary Medical History: Reports: Asthma, Chronic Obstructive Pulmonary Disease (COPD) Endocrine Medical History: Reports: Diabetes Mellitus Type 2 GI Medical History: Reports: Gastroesophageal Reflux Disease Musculoskeltal Medical History: Reports: Arthritis Infectious Medical History: Reports: Methicillin-Resistant Staph Aureus Past Surgical History Past Surgical History: Reports: Herniorrhaphy - Left Social History Smoking Status: Former Smoker Number of Years Smokin Last Time Smoked: 16 yrs ago Frequency of Alcohol Use: Occasional Hx Recreational Drug Use: No Drugs: None Hx Prescription Drug Abuse: No Family History Family History: Reviewed & Not Pertinent, Arthritis, CVA, DM, Hypertension, Thyroid Disfunction Parental Family History Reviewed: Yes Children Family History Reviewed: Yes Sibling(s) Family History Reviewed.: Yes Medication/Allergy Home Medications: Albuterol Sulfate [Albuterol Sulfate Hfa] 2 puff IH Q4HP PRN 10/20/18 Amlodipine Besylate [Norvasc 10 mg Tablet] 10 mg PO DAILY 10/20/18 Aspirin [Adult Low Dose Aspirin EC] 81 mg PO DAILY 10/20/18 Fluticasone/Umeclidin/Vilanter [Trelegy 100-62.5-25 Mcg Ellipta 14 Dose/Dpi] 1 puff IH DAILY 10/20/18 Ipratropium/Albuterol Sulfate [Duoneb 3 ml Ampul] 3 ml NEB RTQ4HP PRN 10/20/18 Metformin HCl [Glucophage 500 mg Tablet] 500 mg PO BID 10/20/18 Pantoprazole Sodium [Protonix] 40 mg PO Q6AM 10/20/18 Roflumilast [Daliresp 500 mcg Tablet] 500 mcg PO DAILY 10/20/18 Allergies/Adverse Reactions: bee venom protein (honey bee) Allergy (Verified 11/18/18 21:48) cat dander Allergy (Verified 11/18/18 21:48) Review of Systems Constitutional: PRESENT: fever(s) Eyes: ABSENT: visual disturbances Ears: ABSENT: hearing changes Cardiovascular: ABSENT: as per HPI, chest pain, dyspnea on exertion, edema, orthropnea, palpitations, other Respiratory: PRESENT: cough, dyspnea Gastrointestinal: ABSENT: as per HPI, abdominal pain, bloating, coffee ground emesis, constipation, diarrhea, dysphagia, heartburn, hematemesis, hematochezia, melena, nausea, vomiting, other Genitourinary: ABSENT: dysuria, hematuria Musculoskeletal: ABSENT: joint swelling Integumentary: ABSENT: rash, wounds Neurological: ABSENT: abnormal gait, abnormal speech, confusion, dizziness, focal weakness, syncope Psychiatric: ABSENT: anxiety, depression, homidical ideation, suicidal ideation Endocrine: ABSENT: cold intolerance, heat intolerance, menstrual abnormalities, polydipsia, polyuria Hematologic/Lymphatic: ABSENT: easy bleeding, easy bruising, lymphadenopathy Physical Exam Vital Signs: Temp Pulse Resp BP Pulse Ox 97.6 F 78 20 117/58 L 95 11/19/18 11:52 11/19/18 11:52 11/19/18 09:24 11/19/18 11:52 11/19/18 11:52 Intake & Output 11/18/18 11/19/18 11/20/18 06:59 06:59 06:59 Intake Total 2250 912 Output Total 500 Balance 1750 912 Weight 100.6 kg General appearance: PRESENT: mild distress Head exam: PRESENT: atraumatic, normocephalic Eye exam: PRESENT: PERRLA Ear exam: PRESENT: normal external ear exam Mouth exam: PRESENT: moist, tongue midline Neck exam: PRESENT: full ROM Respiratory exam: PRESENT: wheezes Cardiovascular exam: PRESENT: RRR, +S1, +S2 Vascular exam: PRESENT: normal capillary refill GI/Abdominal exam: PRESENT: normal bowel sounds, soft Rectal exam: PRESENT: deferred Neurological exam: PRESENT: alert, CN II-XII grossly intact Psychiatric exam: PRESENT: appropriate affect, normal mood Skin exam: PRESENT: dry, intact, warm Results Laboratory Results: 11/19/18 08:42 11/19/18 08:42 11/18/18 11/18/18 11/19/18 21:04 21:04 00:16 WBC 19.6 H RBC 4.80 Hgb 15.6 Hct 45.1 MCV 94 MCH 32.4 MCHC 34.5 RDW 15.1 H Plt Count 521 H Seg Neutrophils % Not Reportable Lymphocytes % Not Reportable Monocytes % Not Reportable Eosinophils % Not Reportable Basophils % Not Reportable Absolute Neutrophils Not Reportable Absolute Lymphocytes Not Reportable Absolute Monocytes Not Reportable Absolute Eosinophils Not Reportable Absolute Basophils Not Reportable Sodium 131.7 L Potassium 3.7 Chloride 98 Carbon Dioxide 24 Anion Gap 10 BUN 14 Creatinine 0.85 Est GFR ( Amer) > 60 Est GFR (Non-Af Amer) > 60 Glucose 122 H Calcium 9.3 Total Bilirubin 0.9 AST 22 ALT 48 Alkaline Phosphatase 59 Total Protein 6.5 Albumin 3.4 L Urine Color YELLOW Urine Appearance CLEAR Urine pH 6.0 Ur Specific [place] 1.011 Urine Protein NEGATIVE Urine Glucose (UA) 50 H Urine Ketones NEGATIVE Urine Blood NEGATIVE Urine Nitrite NEGATIVE Ur Leukocyte Esterase NEGATIVE Urine WBC (Auto) 1 Urine RBC (Auto) 0 11/19/18 11/19/18 08:42 08:42 WBC 22.3 H RBC 4.60 Hgb 14.8 Hct 43.3 MCV 94 MCH 32.1 MCHC 34.1 RDW 15.0 H Plt Count 434 Seg Neutrophils % Not Reportable Lymphocytes % Not Reportable Monocytes % Not Reportable Eosinophils % Not Reportable Basophils % Not Reportable Absolute Neutrophils Not Reportable Absolute Lymphocytes Not Reportable Absolute Monocytes Not Reportable Absolute Eosinophils Not Reportable Absolute Basophils Not Reportable Sodium 136.8 L Potassium 4.1 Chloride 102 Carbon Dioxide 23 Anion Gap 12 BUN 15 Creatinine 0.81 Est GFR ( Amer) > 60 Est GFR (Non-Af Amer) > 60 Glucose 152 H Calcium 8.9 Total Bilirubin 0.6 AST 19 ALT 30 Alkaline Phosphatase 51 Total Protein 6.3 Albumin 3.3 L Urine Color Urine Appearance Urine pH Ur Specific [place] Urine Protein Urine Glucose (UA) Urine Ketones Urine Blood Urine Nitrite Ur Leukocyte Esterase Urine WBC (Auto) Urine RBC (Auto) 11/18/18 11/18/18 11/18/18 21:04 23:37 23:37 Creatine Kinase 62 CK-MB (CK-2) 1.73 Troponin I 0.015 < 0.012 NT-Pro-B Natriuret Pep 293 Impressions: Chest X-Ray 11/18/18 20:59 IMPRESSION: Small left pleural effusion. Findings otherwise similar to the prior study. Assessment & Plan - Diagnosis (1) Pneumonia Qualifiers: Pneumonia type: due to unspecified organism Laterality: unspecified laterality Lung location: unspecified part of lung Qualified Code(s): J18.9 - Pneumonia, unspecified organism Is this a current diagnosis for this admission?: Yes Plan: He has end-stage COPD, he now presents with pneumonia, he will treated with antibiotic that will cover Pseudomonas and other community-acquired pathogens, start IV Levaquin and cefepime
--- NOTE | 2018-11-19 17:24 | PDOC PROGRESS REPORT ---
Subjective Progress Note for:: 11/19/18 Subjective:: Patient seen by the bedside, he has less shortness of breath Reason For Visit: PNEUMONIA, COPD Physical Exam Vital Signs: Temp Pulse Resp BP Pulse Ox 98.0 F 88 22 H 130/54 H 94 11/19/18 16:12 11/19/18 16:12 11/19/18 16:12 11/19/18 16:12 11/19/18 16:12 Intake & Output 11/18/18 11/19/18 11/20/18 06:59 06:59 06:59 Intake Total 2250 912 Output Total 500 Balance 1750 912 Weight 100.6 kg General appearance: PRESENT: no acute distress Respiratory exam: PRESENT: wheezes Cardiovascular exam: PRESENT: +S1, +S2 GI/Abdominal exam: PRESENT: soft Neurological exam: PRESENT: alert, CN II-XII grossly intact Results Laboratory Results: 11/19/18 08:42 11/19/18 08:42 11/18/18 11/18/18 11/19/18 21:04 21:04 00:16 WBC 19.6 H RBC 4.80 Hgb 15.6 Hct 45.1 MCV 94 MCH 32.4 MCHC 34.5 RDW 15.1 H Plt Count 521 H Seg Neutrophils % Not Reportable Lymphocytes % Not Reportable Monocytes % Not Reportable Eosinophils % Not Reportable Basophils % Not Reportable Absolute Neutrophils Not Reportable Absolute Lymphocytes Not Reportable Absolute Monocytes Not Reportable Absolute Eosinophils Not Reportable Absolute Basophils Not Reportable Sodium 131.7 L Potassium 3.7 Chloride 98 Carbon Dioxide 24 Anion Gap 10 BUN 14 Creatinine 0.85 Est GFR ( Amer) > 60 Est GFR (Non-Af Amer) > 60 Glucose 122 H Calcium 9.3 Total Bilirubin 0.9 AST 22 ALT 48 Alkaline Phosphatase 59 Total Protein 6.5 Albumin 3.4 L Urine Color YELLOW Urine Appearance CLEAR Urine pH 6.0 Ur Specific [place] 1.011 Urine Protein NEGATIVE Urine Glucose (UA) 50 H Urine Ketones NEGATIVE Urine Blood NEGATIVE Urine Nitrite NEGATIVE Ur Leukocyte Esterase NEGATIVE Urine WBC (Auto) 1 Urine RBC (Auto) 0 11/19/18 11/19/18 08:42 08:42 WBC 22.3 H RBC 4.60 Hgb 14.8 Hct 43.3 MCV 94 MCH 32.1 MCHC 34.1 RDW 15.0 H Plt Count 434 Seg Neutrophils % Not Reportable Lymphocytes % Not Reportable Monocytes % Not Reportable Eosinophils % Not Reportable Basophils % Not Reportable Absolute Neutrophils Not Reportable Absolute Lymphocytes Not Reportable Absolute Monocytes Not Reportable Absolute Eosinophils Not Reportable Absolute Basophils Not Reportable Sodium 136.8 L Potassium 4.1 Chloride 102 Carbon Dioxide 23 Anion Gap 12 BUN 15 Creatinine 0.81 Est GFR ( Amer) > 60 Est GFR (Non-Af Amer) > 60 Glucose 152 H Calcium 8.9 Total Bilirubin 0.6 AST 19 ALT 30 Alkaline Phosphatase 51 Total Protein 6.3 Albumin 3.3 L Urine Color Urine Appearance Urine pH Ur Specific [place] Urine Protein Urine Glucose (UA) Urine Ketones Urine Blood Urine Nitrite Ur Leukocyte Esterase Urine WBC (Auto) Urine RBC (Auto) 11/18/18 11/18/18 11/18/18 21:04 23:37 23:37 Creatine Kinase 62 CK-MB (CK-2) 1.73 Troponin I 0.015 < 0.012 NT-Pro-B Natriuret Pep 293 Impressions: Chest X-Ray 11/18/18 20:59 IMPRESSION: Small left pleural effusion. Findings otherwise similar to the prior study. Assessment & Plan - Diagnosis (1) Pneumonia Qualifiers: Pneumonia type: due to unspecified organism Laterality: unspecified laterality Lung location: unspecified part of lung Qualified Code(s): J18.9 - Pneumonia, unspecified organism Is this a current diagnosis for this admission?: Yes (2) COPD exacerbation Is this a current diagnosis for this admission?: Yes Plan: Patient symptoms suggest acute COPD exacerbation,Start IV Solu-Medrol
[2018-11-19] MEDS: LEVOFLOXACIN 750 MG/D5W RTU 750 MG/150 ML RTUPB IV SCH (18:40)
[2018-11-19] MEDS: METHYLPREDNISOLONE INJ 125 MG/2 ML SDV IV SCH (18:44)
[2018-11-19] MEDS: ENOXAPARIN SODIUM INJ 40 MG/0.4 ML DISP.SYRIN SUBCUT SCH (21:18)
[2018-11-20] MEDS: PANTOPRAZOLE SODIUM 40 MG TABLET.DR PO SCH (05:12)
[2018-11-20] MEDS: METHYLPREDNISOLONE INJ 125 MG/2 ML SDV IV SCH ×3 (05:12→21:33)
[2018-11-20 05:41] LABS: ALANINE AMINOTRANSFERASE 25 U/L (21-72); ALBUMIN 3.2 g/dL (3.5-5.0); ALKALINE PHOSPHATASE 53 U/L (38-126); ANION GAP 8 (5-19); ASPARTATE AMINO TRANSFERASE 27 U/L (17-59); BILIRUBIN,DIRECT 0.5 mg/dL (0.0-0.4); BILIRUBIN,TOTAL 0.6 mg/dL (0.2-1.3); BLOOD UREA NITROGEN 19 mg/dL (7-20); CARBON DIOXIDE 25 mmol/L (22-30); CHLORIDE 102 mmol/L (98-107); GLUCOSE 158 mg/dL (75-110); POTASSIUM 4.3 mmol/L (3.6-5.0); SODIUM 134.5 mmol/L (137-145); TOTAL PROTEIN 6.4 g/dL (6.3-8.2)
[2018-11-20 06:06] LABS: HEMATOCRIT 41.4 % (37.9-51.0); HEMOGLOBIN 14.2 g/dL (13.5-17.0); MEAN CORPUSCULAR HGB CONC 34.3 g/dL (32.0-36.0); MEAN CORPUSCULAR VOLUME 93 fl (80-97); PLATELET COUNT 372 10^3/uL (150-450); RED BLOOD COUNT 4.43 10^6/uL (4.35-5.55); WHITE BLOOD COUNT 20.1 10^3/uL (4.0-10.5)
[2018-11-20 07:04] LABS: ABSOLUTE LYMPHOCYTES# (MANUAL) 1.4 10^3/uL (0.5-4.7); ABSOLUTE NEUTROPHILS# (MANUAL) 16.7 10^3/uL (1.7-8.2); BAND NEUTROPHILS % (MANUAL) 2 % (3-5); BASOPHILS % (MANUAL) 0 % (0-2); EOSINOPHILS % (MANUAL) 0 % (0-6); LYMPHOCYTES % (MANUAL) 7 % (13-45); MONOCYTES % (MANUAL) 10 % (3-13); SEGMENTED NEUTROPHILS % (MAN) 81 % (42-78); TOTAL CELLS COUNTED 100
[2018-11-20 07:05] LABS: PLATELET COMMENT ADEQUATE; POLYCHROMASIA SLIGHT
[2018-11-20] MEDS: IPRATROPIUM/ALBUTEROL 0.5-2.5 MG/3 ML AMPUL NEB PRN (09:37)
[2018-11-20] MEDS: ROFLUMILAST 500 MCG TABLET PO SCH (10:30)
[2018-11-20] MEDS: METFORMIN HCL 500 MG TABLET PO SCH ×2 (10:30→17:49)
[2018-11-20] MEDS: FLUTICASONE/UMECLIDIN/VILANTER 100-62.5-25 MCG/DOSE IH SCH (10:30)
[2018-11-20] MEDS: AMLODIPINE BESYLATE 10 MG TABLET PO SCH (10:30)
[2018-11-20] MEDS: ASPIRIN 81 MG TABLET, ENT COATED PO SCH (10:30)
[2018-11-20] MEDS: CEFEPIME 2 GM/D5W RTU 2 GM/50 ML RTUPB IV SCH ×2 (10:30→21:31)
[2018-11-20] MEDS: LEVOFLOXACIN 750 MG/D5W RTU 750 MG/150 ML RTUPB IV SCH (17:49)
[2018-11-20] MEDS ORDERED: DEXTROSE 50%-WATER SYRINGE 25 GM/50 ML DOSE IV PRN (18:00)
[2018-11-20] MEDS ORDERED: DEXTROSE 50%-WATER SYRINGE 12.5 GM/25 ML DOSE IV PRN (18:00)
[2018-11-20] MEDS ORDERED: DEXTROSE 40% GEL 15 GM TUBE X 2 PO PRN (18:00)
[2018-11-20] MEDS ORDERED: GLUCAGON,HUMAN RECOMB 1 MG INJ IM PRN (18:00)
[2018-11-20] MEDS ORDERED: DEXTROSE 40% GEL 15 GM TUBE PO PRN (18:00)
--- NOTE | 2018-11-20 18:17 | PDOC PROGRESS REPORT ---
Subjective Progress Note for:: 11/20/18 Subjective:: Patient was admitted yesterday patient was seen by the bedside,He is presently on IV Solu-Medrol and IV antibiotic Reason For Visit: PNEUMONIA, COPD Physical Exam Vital Signs: Temp Pulse Resp BP Pulse Ox 97.4 F 89 21 H 126/60 H 94 11/20/18 03:49 11/20/18 14:00 11/20/18 09:38 11/20/18 03:49 11/20/18 09:38 Intake & Output 11/19/18 11/20/18 11/21/18 06:59 06:59 06:59 Intake Total 2250 1822 761 Output Total 500 Balance 1750 1822 761 Weight 100.6 kg 101.1 kg General appearance: PRESENT: no acute distress Eye exam: PRESENT: PERRLA Respiratory exam: PRESENT: wheezes Cardiovascular exam: PRESENT: +S1, +S2 GI/Abdominal exam: PRESENT: soft Neurological exam: PRESENT: alert, CN II-XII grossly intact Results Laboratory Results: 11/20/18 04:19 11/20/18 04:19 11/20/18 11/20/18 04:19 04:19 WBC 20.1 H RBC 4.43 Hgb 14.2 Hct 41.4 MCV 93 MCH 32.0 MCHC 34.3 RDW 15.0 H Plt Count 372 Seg Neutrophils % Not Reportable Lymphocytes % Not Reportable Monocytes % Not Reportable Eosinophils % Not Reportable Basophils % Not Reportable Absolute Neutrophils Not Reportable Absolute Lymphocytes Not Reportable Absolute Monocytes Not Reportable Absolute Eosinophils Not Reportable Absolute Basophils Not Reportable Sodium 134.5 L Potassium 4.3 Chloride 102 Carbon Dioxide 25 Anion Gap 8 BUN 19 Creatinine 0.79 Est GFR ( Amer) > 60 Est GFR (Non-Af Amer) > 60 Glucose 158 H Calcium 9.0 Total Bilirubin 0.6 AST 27 ALT 25 Alkaline Phosphatase 53 Total Protein 6.4 Albumin 3.2 L 11/18/18 11/18/18 11/18/18 21:04 23:37 23:37 Creatine Kinase 62 CK-MB (CK-2) 1.73 Troponin I 0.015 < 0.012 NT-Pro-B Natriuret Pep 293 Impressions: Chest X-Ray 11/18/18 20:59 IMPRESSION: Small left pleural effusion. Findings otherwise similar to the prior study. Assessment & Plan - Diagnosis (1) Pneumonia Qualifiers: Pneumonia type: due to unspecified organism Laterality: unspecified laterality Lung location: unspecified part of lung Qualified Code(s): J18.9 - Pneumonia, unspecified organism Is this a current diagnosis for this admission?: Yes (2) COPD exacerbation Is this a current diagnosis for this admission?: Yes Plan: Continue IV antibiotic, Solu-Medrol
--- NOTE | 2018-11-20 18:44 | Physician Advisory Note ---
Physician Advisor ProgressNote .: [facility] I have reviewed the medical record for this patient. Physician Advisor Statement: 1. Elderly pts w/COPD, DM, recent adms are at higher risk of gram-negative organisms. Attendings suspecting GNeg PNA tend to use broader-spectrum abx, such as Levaquin & Cefepime. This pt: H&P states end-stage COPD, dx PNA without clarification of type. (Stating what "covering for" doesn't actually say what type organism you believe it IS.) Attending, please document: What type of PNA does this pt likely have at this time? Gram-neg? Gram-pos? Viral? ... - Need to specify this in record. 2. Dx of Chronic Resp Failure = pt needing chronic O2 at baseline, or having chronic pCO2 >50. Dx of Acute Resp Failure = pt needing significantly more O2 than baseline to achieve adequate O2 sats (or Acute Resp Acidosis), with assoc'd increased work of breathing. This pt: ED note states pt came in w/rapid labored breathing. Pt had O2 sats as low as 90% on 2L O2 & 95% on 5L O2 (both giving P/F ratios <300), and needed Bipap at times. H&P states end-stage COPD. No documentation of how much O2, if any, this pt requires at baseline, or how severe his sx are at baseline, & how he has continued to be significantly different from that baseline. Attending, please document: What other type of respiratory dx does this pt have at this time besides PNA, if any? A. "Acute Hypoxemic REsp Failure, evidenced by ...; at baseline, pt needs ___[no O2? 2L O2? ...] to maintain O2 sats above ___%". B. "Chronic Hypoxemic resp failure, evidenced by ." C. "Acute on Chronic Hypoxemic Resp Failure, evidenced by ." D. Other (specify) 3. PN on 11/19 PM states "less SOB", NAD, w/wheezes. Pt was not d/c'd home. Attending, please document medical necessity in each day's note: What is the ongoing clinical issue/concern that requires continued hospital care & monitoring in this case? How is he still different from his baseline? ... - Need to specify this in record each day unless discharging that day. If he was indeed not back to baseline on 3 PM, therefore needing 2nd MN in hospital care, he would be appropriate for Inpatient status as of 11/19 PM. Thanks! CK
[2018-11-20] MEDS: ENOXAPARIN SODIUM INJ 40 MG/0.4 ML DISP.SYRIN SUBCUT SCH (21:32)
[2018-11-20] MEDS: INSULIN LISPRO 100 UNIT/ML 3 ML VIAL SUBCUT SCH (21:39)
[2018-11-21] MEDS: PANTOPRAZOLE SODIUM 40 MG TABLET.DR PO SCH (05:14)
[2018-11-21] MEDS: METHYLPREDNISOLONE INJ 125 MG/2 ML SDV IV SCH ×3 (05:14→21:18)
[2018-11-21 06:07] LABS: HEMOGLOBIN 13.8 g/dL (13.5-17.0); MEAN CORPUSCULAR HGB CONC 34.4 g/dL (32.0-36.0); MEAN CORPUSCULAR VOLUME 93 fl (80-97); PLATELET COUNT 408 10^3/uL (150-450); WHITE BLOOD COUNT 20.5 10^3/uL (4.0-10.5)
[2018-11-21 06:55] LABS: ALANINE AMINOTRANSFERASE 32 U/L (21-72); ALKALINE PHOSPHATASE 48 U/L (38-126); ANION GAP 12 (5-19); ASPARTATE AMINO TRANSFERASE 14 U/L (17-59); BILIRUBIN,DIRECT 0.2 mg/dL (0.0-0.4); BILIRUBIN,TOTAL 0.4 mg/dL (0.2-1.3); BLOOD UREA NITROGEN 24 mg/dL (7-20); CARBON DIOXIDE 23 mmol/L (22-30); CHLORIDE 101 mmol/L (98-107); GLUCOSE 158 mg/dL (75-110); POTASSIUM 4.2 mmol/L (3.6-5.0); SODIUM 135.8 mmol/L (137-145); TOTAL PROTEIN 5.8 g/dL (6.3-8.2)
[2018-11-21 07:21] LABS: ABSOLUTE LYMPHOCYTES# (MANUAL) 0.2 10^3/uL (0.5-4.7); ABSOLUTE MONOCYTES # (MANUAL) 0.8 10^3/uL (0.1-1.4); ABSOLUTE NEUTROPHILS# (MANUAL) 19.5 10^3/uL (1.7-8.2); BAND NEUTROPHILS % (MANUAL) 7 % (3-5); BASOPHILS % (MANUAL) 0 % (0-2); EOSINOPHILS % (MANUAL) 0 % (0-6); LYMPHOCYTES % (MANUAL) 1 % (13-45); MONOCYTES % (MANUAL) 4 % (3-13); SEGMENTED NEUTROPHILS % (MAN) 88 % (42-78); TOTAL CELLS COUNTED 100
[2018-11-21 07:24] LABS: HYPOCHROMASIA SLIGHT; PLATELET COMMENT ADEQUATE
[2018-11-21] MEDS: INSULIN LISPRO 100 UNIT/ML 3 ML VIAL SUBCUT SCH ×4 (07:41→21:52)
[2018-11-21] MEDS: METFORMIN HCL 500 MG TABLET PO SCH ×2 (09:13→18:01)
[2018-11-21] MEDS: ROFLUMILAST 500 MCG TABLET PO SCH (09:13)
[2018-11-21] MEDS: ASPIRIN 81 MG TABLET, ENT COATED PO SCH (09:13)
[2018-11-21] MEDS: CEFEPIME 2 GM/D5W RTU 2 GM/50 ML RTUPB IV SCH ×2 (09:13→21:18)
[2018-11-21] MEDS: FLUTICASONE/UMECLIDIN/VILANTER 100-62.5-25 MCG/DOSE IH SCH (09:14)
[2018-11-21] MEDS: AMLODIPINE BESYLATE 10 MG TABLET PO SCH (09:14)
[2018-11-21] MEDS: IPRATROPIUM/ALBUTEROL 0.5-2.5 MG/3 ML AMPUL NEB PRN (10:05)
[2018-11-21] MEDS: LEVOFLOXACIN 750 MG/D5W RTU 750 MG/150 ML RTUPB IV SCH (18:01)
--- NOTE | 2018-11-21 20:31 | PDOC PROGRESS REPORT ---
Subjective Progress Note for:: 11/21/18 Subjective:: Patient was seen today by the bedside, the sputum culture grew Streptococcus pneumonia, there is no antibiotic sensitivity test yet Reason For Visit: PNEUMONIA, COPD Physical Exam Vital Signs: Temp Pulse Resp BP Pulse Ox 97.4 F 78 19 137/53 H 97 11/21/18 15:41 11/21/18 19:00 11/21/18 15:41 11/21/18 15:41 11/21/18 15:41 Intake & Output 11/20/18 11/21/18 11/22/18 06:59 06:59 06:59 Intake Total 1821 2056 1913 Output Total 1 Balance 1821 2055 1913 Weight 101.1 kg 100.9 kg General appearance: PRESENT: no acute distress Eye exam: PRESENT: PERRLA Respiratory exam: PRESENT: wheezes Cardiovascular exam: PRESENT: +S1, +S2 GI/Abdominal exam: PRESENT: soft Neurological exam: PRESENT: alert Results Laboratory Results: 11/21/18 04:35 11/21/18 04:35 11/21/18 11/21/18 04:35 04:35 WBC 20.5 H RBC 4.30 L Hgb 13.8 Hct 40.0 MCV 93 MCH 32.0 MCHC 34.4 RDW 15.0 H Plt Count 408 Seg Neutrophils % Not Reportable Lymphocytes % Not Reportable Monocytes % Not Reportable Eosinophils % Not Reportable Basophils % Not Reportable Absolute Neutrophils Not Reportable Absolute Lymphocytes Not Reportable Absolute Monocytes Not Reportable Absolute Eosinophils Not Reportable Absolute Basophils Not Reportable Sodium 135.8 L Potassium 4.2 Chloride 101 Carbon Dioxide 23 Anion Gap 12 BUN 24 H Creatinine 0.75 Est GFR ( Amer) > 60 Est GFR (Non-Af Amer) > 60 Glucose 158 H Calcium 9.0 Total Bilirubin 0.4 AST 14 L ALT 32 Alkaline Phosphatase 48 Total Protein 5.8 L Albumin 3.0 L 11/19/18 00:16 Clean Catch Midstream Urine Culture - Final NO GROWTH 2 DAYS 11/18/18 11/18/18 11/18/18 21:04 23:37 23:37 Creatine Kinase 62 CK-MB (CK-2) 1.73 Troponin I 0.015 < 0.012 NT-Pro-B Natriuret Pep 293 Impressions: Chest X-Ray 11/18/18 20:59 IMPRESSION: Small left pleural effusion. Findings otherwise similar to the prior study. Assessment & Plan - Diagnosis (1) Streptococcus pneumoniae pneumonia Qualifiers: Laterality: bilateral Lung location: unspecified part of lung Qualified Code(s): J13 - Pneumonia due to Streptococcus pneumoniae Is this a current diagnosis for this admission?: Yes Plan: Continue present IV antibiotic until antibiotic sensitivity results returns (2) COPD exacerbation Is this a current diagnosis for this admission?: Yes Plan: He has diffuse wheeze suggesting acute COPD exacerbation, continue IV Solu- Medrol, bronchodilators
[2018-11-21] MEDS: ENOXAPARIN SODIUM INJ 40 MG/0.4 ML DISP.SYRIN SUBCUT SCH (21:18)
[2018-11-22] MEDS: METHYLPREDNISOLONE INJ 125 MG/2 ML SDV IV SCH ×3 (06:13→21:43)
[2018-11-22] MEDS: PANTOPRAZOLE SODIUM 40 MG TABLET.DR PO SCH (06:14)
[2018-11-22] MEDS: INSULIN LISPRO 100 UNIT/ML 3 ML VIAL SUBCUT SCH ×4 (07:48→21:43)
[2018-11-22] MEDS: IPRATROPIUM/ALBUTEROL 0.5-2.5 MG/3 ML AMPUL NEB PRN ×3 (08:14→19:39)
[2018-11-22] MEDS: ASPIRIN 81 MG TABLET, ENT COATED PO SCH (09:11)
[2018-11-22] MEDS: METFORMIN HCL 500 MG TABLET PO SCH ×2 (09:11→17:11)
[2018-11-22] MEDS: AMLODIPINE BESYLATE 10 MG TABLET PO SCH (09:11)
[2018-11-22] MEDS: FLUTICASONE/UMECLIDIN/VILANTER 100-62.5-25 MCG/DOSE IH SCH (09:12)
[2018-11-22] MEDS: ROFLUMILAST 500 MCG TABLET PO SCH (09:12)
[2018-11-22] MEDS: CEFEPIME 2 GM/D5W RTU 2 GM/50 ML RTUPB IV SCH ×2 (09:14→21:43)
[2018-11-22] MEDS: LEVOFLOXACIN 750 MG/D5W RTU 750 MG/150 ML RTUPB IV SCH (17:11)
--- NOTE | 2018-11-22 17:28 | PDOC PROGRESS REPORT ---
Subjective Progress Note for:: 11/22/18 Subjective:: Patient was seen by the bedside, he has Streptococcus pneumonia pneumonia with a background of acute COPD exacerbation Reason For Visit: PNEUMONIA, COPD Physical Exam Vital Signs: Temp Pulse Resp BP Pulse Ox 98.0 F 93 18 129/55 H 96 11/22/18 15:38 11/22/18 15:38 11/22/18 15:38 11/22/18 15:38 11/22/18 15:38 Intake & Output 11/21/18 11/22/18 11/23/18 06:59 06:59 06:59 Intake Total 2056 2938 642 Output Total 1 Balance 2055 2938 642 Weight 100.9 kg 102 kg General appearance: PRESENT: no acute distress Eye exam: PRESENT: PERRLA Respiratory exam: PRESENT: wheezes Cardiovascular exam: PRESENT: +S1, +S2 GI/Abdominal exam: PRESENT: soft Neurological exam: PRESENT: alert, CN II-XII grossly intact Results Laboratory Results: 11/21/18 04:35 11/21/18 04:35 11/18/18 11/18/18 11/18/18 21:04 23:37 23:37 Creatine Kinase 62 CK-MB (CK-2) 1.73 Troponin I 0.015 < 0.012 NT-Pro-B Natriuret Pep 293 Impressions: Chest X-Ray 11/18/18 20:59 IMPRESSION: Small left pleural effusion. Findings otherwise similar to the prior study. Assessment & Plan - Diagnosis (1) Streptococcus pneumoniae pneumonia Qualifiers: Laterality: bilateral Lung location: unspecified part of lung Qualified Code(s): J13 - Pneumonia due to Streptococcus pneumoniae Is this a current diagnosis for this admission?: Yes Plan: Continue present IV antibiotic until antibiotic sensitivity results returns (2) COPD exacerbation Is this a current diagnosis for this admission?: Yes Plan: The dose of Solu-Medrol is decreased to 60 mg IV every 8 hour
[2018-11-22] MEDS: ENOXAPARIN SODIUM INJ 40 MG/0.4 ML DISP.SYRIN SUBCUT SCH (21:43)
[2018-11-23] MEDS: PANTOPRAZOLE SODIUM 40 MG TABLET.DR PO SCH (06:38)
[2018-11-23] MEDS: METHYLPREDNISOLONE INJ 125 MG/2 ML SDV IV SCH ×3 (06:38→22:13)
[2018-11-23] MEDS: IPRATROPIUM/ALBUTEROL 0.5-2.5 MG/3 ML AMPUL NEB PRN ×2 (08:19→13:41)
[2018-11-23] MEDS: AMLODIPINE BESYLATE 10 MG TABLET PO SCH (09:20)
[2018-11-23] MEDS: FLUTICASONE/UMECLIDIN/VILANTER 100-62.5-25 MCG/DOSE IH SCH (09:20)
[2018-11-23] MEDS: ASPIRIN 81 MG TABLET, ENT COATED PO SCH (09:20)
[2018-11-23] MEDS: METFORMIN HCL 500 MG TABLET PO SCH ×2 (09:20→17:04)
[2018-11-23] MEDS: ROFLUMILAST 500 MCG TABLET PO SCH (09:20)
[2018-11-23] MEDS: INSULIN LISPRO 100 UNIT/ML 3 ML VIAL SUBCUT SCH ×4 (09:21→22:13)
[2018-11-23] MEDS: CEFEPIME 2 GM/D5W RTU 2 GM/50 ML RTUPB IV SCH (09:21)
--- NOTE | 2018-11-23 15:03 | PDOC PROGRESS REPORT ---
Subjective Progress Note for:: 11/23/18 Subjective:: Patient was seen by the bedside Reason For Visit: PNEUMONIA, COPD Physical Exam Vital Signs: Temp Pulse Resp BP Pulse Ox 98.2 F 89 16 129/60 H 96 11/23/18 11:49 11/23/18 13:43 11/23/18 13:43 11/23/18 11:49 11/23/18 13:43 Intake & Output 11/22/18 11/23/18 11/24/18 06:59 06:59 06:59 Intake Total 2938 2008 640 Balance 2938 2008 640 Weight 102 kg 101.9 kg General appearance: PRESENT: other - Patient is alert oriented not overly distressed Eye exam: PRESENT: PERRLA Respiratory exam: PRESENT: other - On auscultation of the chest there is scattered wheeze, improved Cardiovascular exam: PRESENT: +S1, +S2 GI/Abdominal exam: PRESENT: soft - There is ventral hernia Neurological exam: PRESENT: alert, CN II-XII grossly intact Results Laboratory Results: 11/21/18 04:35 11/21/18 04:35 11/19/18 16:00 Sputum Gram Stain - Final 11/19/18 16:00 Sputum Sputum Culture - Final Streptococcus Pneumoniae Normal [place] 11/18/18 11/18/18 11/18/18 21:04 23:37 23:37 Creatine Kinase 62 CK-MB (CK-2) 1.73 Troponin I 0.015 < 0.012 NT-Pro-B Natriuret Pep 293 Impressions: Chest X-Ray 11/18/18 20:59 IMPRESSION: Small left pleural effusion. Findings otherwise similar to the prior study. Assessment & Plan - Diagnosis (1) Streptococcus pneumoniae pneumonia Qualifiers: Laterality: bilateral Lung location: unspecified part of lung Qualified Code(s): J13 - Pneumonia due to Streptococcus pneumoniae Is this a current diagnosis for this admission?: Yes Plan: The Streptococcus pneumonia that was cultured from the sputum is sensitive to both cefepime and Levaquin, discontinue cefepime, transition Levaquin to p.o. (2) COPD exacerbation Is this a current diagnosis for this admission?: Yes Plan: Continue Solu-Medrol at the present dosage, bronchodilators
[2018-11-23] MEDS: LEVOFLOXACIN 750 MG TABLET PO SCH (17:04)
[2018-11-23] MEDS: ENOXAPARIN SODIUM INJ 40 MG/0.4 ML DISP.SYRIN SUBCUT SCH (22:13)
[2018-11-24] MEDS: METHYLPREDNISOLONE INJ 125 MG/2 ML SDV IV SCH ×2 (06:10→13:42)
[2018-11-24] MEDS: PANTOPRAZOLE SODIUM 40 MG TABLET.DR PO SCH (06:10)
[2018-11-24] MEDS: INSULIN LISPRO 100 UNIT/ML 3 ML VIAL SUBCUT SCH ×3 (08:48→17:05)
[2018-11-24] MEDS: ROFLUMILAST 500 MCG TABLET PO SCH (09:39)
[2018-11-24] MEDS: METFORMIN HCL 500 MG TABLET PO SCH ×2 (09:39→17:06)
[2018-11-24] MEDS: ASPIRIN 81 MG TABLET, ENT COATED PO SCH (09:40)
[2018-11-24] MEDS: AMLODIPINE BESYLATE 10 MG TABLET PO SCH (09:40)
[2018-11-24] MEDS: FLUTICASONE/UMECLIDIN/VILANTER 100-62.5-25 MCG/DOSE IH SCH (09:41)
[2018-11-24] MEDS: LEVOFLOXACIN 750 MG TABLET PO SCH (17:06)
--- NOTE | 2018-11-24 18:06 | PDOC DISCHARGE SUMMARY ---
General - Admit/Disc Date/PCP Admission Date/Primary Care Provider: 11/21/18 11:06 ZAIRE MILTON MD Discharge Date: 11/24/18 - Discharge Diagnosis (1) Streptococcus pneumoniae pneumonia Is this a current diagnosis for this admission?: Yes (2) COPD exacerbation Is this a current diagnosis for this admission?: Yes - Additional Information Prescriptions: Levofloxacin [Levaquin 750 mg Tablet] 750 mg PO QPM #7 tablet Nebulizer and Compressor [Comp-Air Nebulizer System] 1 each MC DAILY #1 each Prednisone 40 mg PO DAILY #5 tablet Home Medications: Albuterol Sulfate [Albuterol Sulfate Hfa] 2 puff IH Q4HP PRN 10/20/18 Amlodipine Besylate [Norvasc 10 mg Tablet] 10 mg PO DAILY 10/20/18 Aspirin [Adult Low Dose Aspirin EC] 81 mg PO DAILY 10/20/18 Fluticasone/Umeclidin/Vilanter [Trelegy 100-62.5-25 Mcg Ellipta 14 Dose/Dpi] 1 puff IH DAILY 10/20/18 Ipratropium/Albuterol Sulfate [Duoneb 3 ml Ampul] 3 ml NEB RTQ4HP PRN 10/20/18 Metformin HCl [Glucophage 500 mg Tablet] 500 mg PO BID 10/20/18 Pantoprazole Sodium [Protonix] 40 mg PO Q6AM 10/20/18 Roflumilast [Daliresp 500 mcg Tablet] 500 mcg PO DAILY 10/20/18 Levofloxacin [Levaquin 750 mg Tablet] 750 mg PO QPM #7 tablet 11/24/18 Nebulizer and Compressor [Comp-Air Nebulizer System] 1 each MC DAILY #1 each 11/24/18 Prednisone 40 mg PO DAILY #5 tablet 11/24/18 History of Present Illness History of Present Illness: ANDRE BATES is a 73 year old male, Patient is well-known to me he has history of end-stage chronic obstructive lung disease with multiple hospitalization for acute exacerbation despite taking optimal medical therapy for COPD. He was brought to the emergency room for evaluation of shortness of breath, wheezing, fever, in the emergency room was evaluated, it was felt that he has pneumonia. He was in the emergency room 9 days ago for evaluation of abdominal pain/flank pain he thought he had a kidney stone, at that time a CAT scan of the abdomen and pelvis was done without contrast on that evaluation he was also diagnosed with pneumonia in the lower lobe of the lung, he was prescribed Z-Marco. In the emergency room he was in respiratory distress, he required noninvasive positive pressure ventilation with BiPAP to support breathing. The ED physician felt patient needed to be admitted for further evaluation and management. Hospital Course Hospital Course: Patient was admitted for the management of Streptococcus pneumonia pneumonia with a background of acute COPD exacerbation. He was initially empirically treated with intravenous cefepime and Levaquin, Solu-Medrol 125 Mg IV every 8 hours. The sputum culture grew Streptococcus pneumonia sensitive to both cefepime and Levaquin, the antibiotic was transitioned to p.o. Levaquin. He has underlying very severe chronic obstructive pulmonary disease with multiple hospitalization. Physical Exam Vital Signs: Temp Pulse Resp BP Pulse Ox 97.4 F 88 21 H 125/58 L 96 11/24/18 16:04 11/24/18 16:04 11/24/18 16:04 11/24/18 16:04 11/24/18 16:04 Intake & Output 11/23/18 11/24/18 11/25/18 06:59 06:59 06:59 Intake Total 2008 2723 1014 Balance 2008 2723 1014 Weight 101.9 kg 100.4 kg General appearance: PRESENT: no acute distress, well-developed, well-nourished Head exam: PRESENT: atraumatic, normocephalic Eye exam: PRESENT: conjunctiva pink, EOMI, PERRLA Ear exam: PRESENT: normal external ear exam Mouth exam: PRESENT: moist, tongue midline Neck exam: PRESENT: full ROM Respiratory exam: PRESENT: clear to auscultation booker Cardiovascular exam: PRESENT: RRR, +S1, +S2 Pulses: PRESENT: normal dorsalis pedis pul, +2 pedal pulses bilateral Vascular exam: PRESENT: normal capillary refill GI/Abdominal exam: PRESENT: normal bowel sounds, soft Rectal exam: PRESENT: deferred Neurological exam: PRESENT: alert, awake, oriented to person, oriented to place, oriented to time, oriented to situation, CN II-XII grossly intact Psychiatric exam: PRESENT: appropriate affect, normal mood Skin exam: PRESENT: dry, intact, warm Results Laboratory Results: 11/21/18 04:35 11/21/18 04:35 11/18/18 21:35 Blood Blood Culture - Final NO GROWTH IN 5 DAYS 11/18/18 21:04 Blood Blood Culture - Final NO GROWTH IN 5 DAYS 11/18/18 11/18/18 11/18/18 21:04 23:37 23:37 Creatine Kinase 62 CK-MB (CK-2) 1.73 Troponin I 0.015 < 0.012 NT-Pro-B Natriuret Pep 293 Impressions: Chest X-Ray 11/18/18 20:59 IMPRESSION: Small left pleural effusion. Findings otherwise similar to the prior study. Qualifiers - * PATIENT BEING DISCHARGED WITH ANY OF THE FOLLOWING DIAGNOSIS: No
[2018-11-24 18:15] VITALS: BP 133/62
== END 2018-11-24 18:44 | disposition home or self-care (01) | DRG 194 ==
LOC: ER 20:47 → EH 22:21 → INTOOBSV 22:21 → 3N 11-19 04:55 → OBSVTOIN 11-21 11:06
PROVIDERS: ADMIT Internal Medicine; ATTEND Internal Medicine
DX: J13 Pneumonia due to Streptococcus pneumoniae (principal); J44.1 Chronic obstructive pulmonary disease with (acute) exacerbation; I48.91 Unspecified atrial fibrillation; E78.00 Pure hypercholesterolemia, unspecified; I10 Essential (primary) hypertension; E11.8 Type 2 diabetes mellitus with unspecified complications; K21.9 Gastro-esophageal reflux disease without esophagitis; Z87.891 Personal history of nicotine dependence; Z79.84 Long term (current) use of oral hypoglycemic drugs; Z79.82 Long term (current) use of aspirin; Z79.51 Long term (current) use of inhaled steroids; Z79.899 Other long term (current) drug therapy
CPT/HCPCS: 36415; 71045; 80053; 81001; 82550; 82553; 82962; 83036; 83880; 84484; 85025; 87040; 87070; 87077; 87086; 87186; 87205; 87804; 93005; 93010; 94640; 94660; 96361; 96365; 96375; 99285; J0692; J0696; J1650; J1815; J1956; J2930; J3490; J7030; J7620